=== PATIENT | male | born 1935 | race Caucasian/White ===

== ENCOUNTER 2022-07-30 23:07 | Inpatient (IN) ==
[2022-07-31] MEDS ORDERED: ONDANSETRON INJ 2 MG/ML 2 ML VIAL IV STA (01:19)
[2022-07-31] MEDS ORDERED: HYDROmorphone INJ 0.5 MG/0.5 ML SYR IV STA (01:19)
[2022-07-31 01:44] LABS: Basophils # (auto) 0.04 K/uL (0-0.2); Basophils % (auto) 0.3 %; Eosinophils # (auto) 0.03 K/uL (0-0.50); Eosinophils % (auto) 0.2 %; Hematocrit (blood only) 32.8 % (40.1-51.0); Hemoglobin 11.2 g/dl (14.0-18.0); Immature Granulocytes # (auto) 0.07 K/uL (0.00-0.02); Immature Granulocytes % (auto) 0.5 %; Lymphocytes # (auto) 1.64 K/uL (1.2-3.4); Lymphocytes % (auto) 11.6 %; Mean Corpuscular Hemoglobin 31.4 pg (25.0-34.0); Mean Corpuscular Hgb Conc 34.1 g/dL (32.0-36.0); Mean Corpuscular Volume 91.9 fL (80.0-100.0); Mean Platelet Volume 9.4 fL (9.4-12.4); Monocytes # (auto) 1.02 K/uL (0.24-0.82); Monocytes % (auto) 7.2 %; Neutrophils # (auto) 11.32 K/uL (1.4-6.5); Neutrophils % (auto) 80.2 %; Platelet Count 212 K/uL (130-400); RDW Coefficient of Variation 11.9 % (11.5-14.5); RDW Standard Deviation 40.3 fL (36.4-46.3); Red Blood Count 3.57 M/uL (4.63-6.08); White Blood Count 14.12 K/ul (4.8-10.8)
[2022-07-31 01:57] LABS: INR 1.1 (0.9-1.1); Partial Thromboplastin Ratio 0.9; Partial Thromboplastin Time 24.8 Seconds (21.0-31.0); Prothrombin Time 11.4 Seconds (9.0-12.0)
[2022-07-31 02:05] LABS: Albumin Globulin Ratio 1.4 (0.9-2); Albumin Level 3.9 gm/dl (3.4-5.0); BUN Creatinine Ratio 20.5 (10-20); Bilirubin,Total 0.4 mg/dl (0.2-1.0); Calcium 9.2 mg/dl (8.5-10.1); Creatinine Clr Calc Pharmacy 52.6 ml/min; Est GFR (African American) 69.1 ml/min; Est GFR (Non-African American) 59.6 ml/min; Globulin 2.7 gm/dl (2.5-4.0); Potassium 4.4 mmol/L (3.5-5.1); Total Protein 6.6 gm/dl (6.0-8.3)
[2022-07-31 03:11] LABS: Appearance Urine Clear (Clear); Bacteria Urine Automated Negative (Negative); Bilirubin Urine Negative (Negative); Blood Urine Negative (Negative); Color Urine Yellow; Epithelial Cell Urine Auto 20-30 /lpf (0-5); Glucose Urine UA Negative (Negative); Ketones Urine Trace (Negative); Leukocyte Esterase Urine Negative (Negative); Nitrite Urine Negative (Negative); Protein Urine 2+ (Negative); RBC Urine Automated 0-4 /hpf (0-4); Specific Gravity Urine 1.022 (1.000-1.030); Urobilinogen Urine Negative (Negative); pH Urine 6.5 (4.5-7.5)
--- NOTE | 2022-07-31 06:36 | Emergency Department Note ---
Impression & Plan Intertrochanteric fracture of right hip, Fall Admit to the [facility] ED Provider Note NAME: JORDANA DICKSON AGE: 87 SEX: M ARRIVES VIA: Ambulance INFORMANT: Patient and his family member ED PROVIDER(S): Rosio Baron DO CHIEF COMPLAINT: Right hip pain PLAN: Disposition: Admit to the [facility] Condition: Fair MEDICAL DECISION MAKING: This is an 87-year-old male patient who fell down 1 step landing on his right side. X-ray shows evidence of an intertrochanteric hip fracture. The patient did not injure any other part of his body during this fall. [facility] and [facility] will evaluate for further management. Patient's pain was managed with IV analgesia. Triage Nursing notes reviewed and agree with them. Additional history obtained from the patient's family members who are at the bedside Vital Signs: reviewed and unremarkable Differential diagnosis: Pelvis fracture, hip fracture, head injury ER treatment provided: IV Dilaudid IV Zofran Diagnostics interpreted by me: Cardiac Monitoring: Normal sinus rhythm at 77 Laboratory studies: See below Imaging studies: As per my interpretation Right hip and pelvis: Intertrochanteric hip fracture HPI: 87/M arrives for evaluation of right hip pain. Patient was helping his daughter carry a table to the basement when he missed the last step and fell to the ground landing on his right hip and shoulder. He immediately had pain in the right hip. He was unable to get up or bear weight on that leg and there is obvious shortening and external rotation of that extremity. ROS: See above HPI for pertinent positives & negatives. A total of 10 systems reviewed and were otherwise negative. PAST MEDICAL HISTORY:Patient suffers from blindness, diabetes, hypertension PAST SURGICAL HISTORY:See Below FAMILY HISTORY:See Below SOCIAL HISTORY:He lives with his family HOME MEDICATIONS:See list ALLERGIES:None VITALS:See Below PHYSICAL EXAMINATION: HEENT: Head - normocephalic and atraumatic. Pupils are equal, round, and reactive to light. Extraocular eye muscles are intact, and sclera are anicteric. Nose - moist nasal mucosa without discharge. Mouth - moist buccal mucosa. Oropharynx is nonerythematous and there is no tonsillar exudate or edema noted. Neck: Supple; no pain to palpation over the posterior cervical spine Heart: Regular rate and rhythm. There is a normal S1 and S2 with no murmurs, clicks, or gallops appreciated. Lungs: Clear to auscultation bilaterally with no wheezes, rales, or rhonchi. Abdomen: Soft, completely nontender, nondistended, with good bowel sounds. There are no palpable pulsatile masses or hepatosplenomegaly. There is no guarding, rigidity, or rebound noted. Extremities: The right lower extremity is shortened and externally rotated. There are easily palpable posterior tibial pulses and dorsalis pedis pulses. Patient has good sensation in the foot. Skin: warm and dry with good turgor and no rashes. ED COURSE: Times/Reassessments: 0110: Patient was evaluated in room C3. A complete history and physical was performed. Laboratory studies were drawn as above. The patient had plain films of the right hip and pelvis. He was given IV Dilaudid and IV Zofran for his pain with good relief of the pain. An order was placed for continuous cardiac monitoring. The patient was in a normal sinus rhythm at a rate of 77. [facility] and they will evaluate for further management. Rosio Baron DO Past Med/Surg History Medical History (Updated 07/31/22 @ 19:06 by Rosio Baron DO) Diabetes H/O breast disorder in male History of prostate cancer HTN (hypertension) Hyperlipidemia Surgical History (Updated 07/31/22 @ 10:49 by Landon Reyez MD) History of penile implant History of total left hip replacement Hx of appendectomy Social History Smoking Status: Never smoker Hx Alcohol Use: Yes Hx Substance Use: No Preferred Language: Cuban Communication Ability: Effective Cub Reporter Required: No Beliefs That Will Affect Care: None Current Living Situation: Spouse Other Information That Helps Us Care for You: No Feels Safe at Home: Yes Safety Concerns: Feels Safe At This Time Assistive Devices: Cane Allergies Allergies Allergy/AdvReac Type Severity Reaction Status Date / Time No Known Allergies Allergy Verified 07/31/22 00:36 Home Meds Home Medications Medication Instructions Recorded Confirmed ascorbic acid (vitamin C) 500 mg 500 mg PO DAILY 07/31/22 07/31/22 tablet (Vitamin C) atorvastatin 40 mg tablet 40 mg PO HS 07/31/22 07/31/22 calcium carbonate 600 mg calcium 600 mg PO DAILY 07/31/22 07/31/22 (1,500 mg) tablet (Calcium) captopril 50 mg tablet 50 mg PO BID 07/31/22 07/31/22 cholecalciferol (vitamin D3) 25 25 mcg PO DAILY 07/31/22 07/31/22 mcg (1,000 unit) capsule (Vitamin D3) hydrochlorothiazide 25 mg tablet 25 mg PO DAILY 07/31/22 07/31/22 latanoprost 0.005 % eye drops 1 drp ophthalmic (eye) HS 07/31/22 07/31/22 linagliptin 5 mg tablet (Tradjenta) 5 mg PO DAILY 07/31/22 07/31/22 metformin 1,000 mg tablet 1,000 mg PO BID 07/31/22 07/31/22 netarsudil 0.02 % eye drops 1 drp ophthalmic (eye) DAILY 07/31/22 07/31/22 (Rhopressa) vitamin B complex 1 tab PO DAILY 07/31/22 07/31/22 vitamin E 268 mg (400 unit) capsule 268 mg PO DAILY 07/31/22 07/31/22 Results & Data (ED) Vital Signs Vital Signs - 24 hr 07/30/22 23:13 07/31/22 01:37 07/31/22 03:16 Temperature 36.5 C Temperature Source Oral Pulse Rate 80 Pulse Rate [Apical] 90 86 Respiratory Rate 16 18 18 Blood Pressure 154/70 H Blood Pressure [Right Arm] 134/63 145/65 H Blood Pressure Mean 98 Blood Pressure Mean [Right Arm] 86 91 Pulse Oximetry 96 95 92 Oxygen Delivery Method Room Air Room Air Sepsis Recent Fever Within 48 Hours No Sepsis New/Unexplained Change in Mental Status N/A Sepsis Action Taken by Nursing No Action Required Laboratory Data Result diagrams: 07/31/22 08:37 07/31/22 08:37 Lab Results 07/31/22 07/31/22 07/31/22 Range/Units 01:33 01:33 01:33 WBC 14.12 H (4.8-10.8) K/ul RBC 3.57 L (4.63-6.08) M/uL Hgb 11.2 L (14.0-18.0) g/dl Hct 32.8 L (40.1-51.0) % MCV 91.9 (80.0-100.0) fL MCH 31.4 (25.0-34.0) pg MCHC 34.1 (32.0-36.0) g/dL RDW Std Deviation 40.3 (36.4-46.3) fL RDW Coeff of Shirley 11.9 (11.5-14.5) % Plt Count 212 (130-400) K/uL MPV 9.4 (9.4-12.4) fL Immature Gran % (Auto) 0.5 % Neut % (Auto) 80.2 % Lymph % (Auto) 11.6 % [place] % (Auto) 7.2 % Eos % (Auto) 0.2 % Baso % (Auto) 0.3 % Neut # (Auto) 11.32 H (1.4-6.5) K/uL Lymph # (Auto) 1.64 (1.2-3.4) K/uL [place] # (Auto) 1.02 H (0.24-0.82) K/uL Eos # (Auto) 0.03 (0-0.50) K/uL Baso # (Auto) 0.04 (0-0.2) K/uL Immature Gran # (Auto) 0.07 H (0.00-0.02) K/uL PT 11.4 (9.0-12.0) Seconds INR 1.1 (0.9-1.1) APTT 24.8 (21.0-31.0) Seconds PTT Ratio 0.9 Sodium 135 L (136-145) mmol/L Potassium 4.4 (3.5-5.1) mmol/L Chloride 98 (98-107) mmol/L Carbon Dioxide 31 (21-32) mmol/L Anion Gap 6 (3-11) BUN 23 (6-23) mg/dl Creatinine 1.12 (0.6-1.4) mg/dl Est Cr Clr Drug Dosing 52.6 ml/min Est GFR ( Amer) 69.1 ml/min Est GFR (Non-Af Amer) 59.6 ml/min BUN/Creatinine Ratio 20.5 H (10-20) Glucose 180 H (70-99(Fasting)) mg/dl Calcium 9.2 (8.5-10.1) mg/dl Total Bilirubin 0.4 (0.2-1.0) mg/dl AST 18 (13-39) U/L ALT 11 (7-52) U/L Alkaline Phosphatase 79 (34-104) U/L Total Protein 6.6 (6.0-8.3) gm/dl Albumin 3.9 (3.4-5.0) gm/dl Globulin 2.7 (2.5-4.0) gm/dl Albumin/Globulin Ratio 1.4 (0.9-2) Urine Color Urine Appearance (Clear) Urine pH (4.5-7.5) Ur Specific [place] (1.000-1.030) Urine Protein (Negative) Urine Glucose (UA) (Negative) Urine Ketones (Negative) Urine Blood (Negative) Urine Nitrite (Negative) Urine Bilirubin (Negative) Urine Urobilinogen (Negative) Ur Leukocyte Esterase (Negative) Urine WBC (Auto) (0-5) /hpf Urine RBC (Auto) (0-4) /hpf U Hyaline Cast (Auto) (0-5) /lpf U Epithel Cells (Auto) (0-5) /lpf Urine Bacteria (Auto) (Negative) SARS-CoV-2, RNA, NAAT (NEGATIVE) 07/31/22 07/31/22 Range/Units 02:53 03:47 WBC (4.8-10.8) K/ul RBC (4.63-6.08) M/uL Hgb (14.0-18.0) g/dl Hct (40.1-51.0) % MCV (80.0-100.0) fL MCH (25.0-34.0) pg MCHC (32.0-36.0) g/dL RDW Std Deviation (36.4-46.3) fL RDW Coeff of Shirley (11.5-14.5) % Plt Count (130-400) K/uL MPV (9.4-12.4) fL Immature Gran % (Auto) % Neut % (Auto) % Lymph % (Auto) % [place] % (Auto) % Eos % (Auto) % Baso % (Auto) % Neut # (Auto) (1.4-6.5) K/uL Lymph # (Auto) (1.2-3.4) K/uL [place] # (Auto) (0.24-0.82) K/uL Eos # (Auto) (0-0.50) K/uL Baso # (Auto) (0-0.2) K/uL Immature Gran # (Auto) (0.00-0.02) K/uL PT (9.0-12.0) Seconds INR (0.9-1.1) APTT (21.0-31.0) Seconds PTT Ratio Sodium (136-145) mmol/L Potassium (3.5-5.1) mmol/L Chloride (98-107) mmol/L Carbon Dioxide (21-32) mmol/L Anion Gap (3-11) BUN (6-23) mg/dl Creatinine (0.6-1.4) mg/dl Est Cr Clr Drug Dosing ml/min Est GFR ( Amer) ml/min Est GFR (Non-Af Amer) ml/min BUN/Creatinine Ratio (10-20) Glucose (70-99(Fasting)) mg/dl Calcium (8.5-10.1) mg/dl Total Bilirubin (0.2-1.0) mg/dl AST (13-39) U/L ALT (7-52) U/L Alkaline Phosphatase (34-104) U/L Total Protein (6.0-8.3) gm/dl Albumin (3.4-5.0) gm/dl Globulin (2.5-4.0) gm/dl Albumin/Globulin Ratio (0.9-2) Urine Color Yellow Urine Appearance Clear (Clear) Urine pH 6.5 (4.5-7.5) Ur Specific [place] 1.022 (1.000-1.030) Urine Protein 2+ H (Negative) Urine Glucose (UA) Negative (Negative) Urine Ketones Trace H (Negative) Urine Blood Negative (Negative) Urine Nitrite Negative (Negative) Urine Bilirubin Negative (Negative) Urine Urobilinogen Negative (Negative) Ur Leukocyte Esterase Negative (Negative) Urine WBC (Auto) 1-5 (0-5) /hpf Urine RBC (Auto) 0-4 (0-4) /hpf U Hyaline Cast (Auto) 5-10 H (0-5) /lpf U Epithel Cells (Auto) 20-30 H (0-5) /lpf Urine Bacteria (Auto) Negative (Negative) SARS-CoV-2, RNA, NAAT NEGATIVE (NEGATIVE) Administered Medications Ascorbic Acid (Ascorbic Acid 500 Mg Tab) 500 mg PO DAILY DELIA Stop: 08/30/22 08:59 Last Admin: 07/31/22 09:44 Dose: 500 mg Documented By: ANDREWS Calcium Carbonate (Calcium Carbonate 1250mg Tab) 1,250 mg PO DAILY DELIA Stop: 08/30/22 08:59 Last Admin: 07/31/22 09:44 Dose: 1,250 mg Documented By: ANDREWS Captopril (Captopril 25 Mg Tab) 50 mg PO BID DELIA Stop: 08/30/22 08:59 Last Admin: 07/31/22 09:45 Dose: 50 mg Documented By: ANDREWS Hydrochlorothiazide (Hydrochlorothiazide 25 Mg Tab) 25 mg PO DAILY DELIA Stop: 08/30/22 08:59 Last Admin: 07/31/22 09:45 Dose: 25 mg Documented By: ANDREWS Hydromorphone HCl (Hydromorphone Inj 0.5 Mg/0.5 Ml Syr) 0.5 mg IV Q3H PRN PRN Reason: Pain Stop: 08/14/22 08:05 Last Admin: 07/31/22 09:54 Dose: 0.5 mg Documented By: ANDREWS Sodium Chloride (Nss 1000ml) 1,000 mls @ 75 mls/hr IV .[id number] DELIA Stop: 08/30/22 08:05 Last Admin: 07/31/22 17:05 Dose: 75 mls/hr Documented By: Infusion: 07/31/22 12:25 Dose: 0 mls/hr Documented By: Admin: 07/31/22 09:40 Dose: 125 mls/hr Documented By: ANDREWS Insulin Aspart (Insulin Aspart Per Unit) 0 units SC ACHS DELIA Stop: 08/30/22 08:05 Last Admin: 07/31/22 17:47 Dose: 5 units Documented By: GIOVANNY Co-signed By: MISBAH Admin: 07/31/22 12:31 Dose: Not Given Documented By: ANDREWS Co-signed By: BRITTON Admin: 07/31/22 09:50 Dose: 1 units Documented By: ANDREWS Co-signed By: BRITTON Miscellaneous (Netarsudil-Order Awaiting Action) 1 each N/A QS DELIA Stop: 08/30/22 15:59 Last Admin: 07/31/22 17:05 Dose: Not Given Documented By: GIOVANNY Vitamin B Complex (Vitamin B Complex Tab) 1 tab PO DAILY DELIA Stop: 08/30/22 08:59 Last Admin: 07/31/22 09:44 Dose: 1 tab Documented By: ANDREWS Vitamin D (Cholecalciferol 1,000 Units 25 Mcg Tab) 1,000 units PO DAILY DELIA Stop: 08/30/22 08:59 Last Admin: 07/31/22 09:45 Dose: 1,000 units Documented By: ANDREWS Discontinued Medications Bupivacaine HCl (Bupivacaine 0.5 % 5 Mg/1 Ml Mpf 30ml Vial) Confirm Administered Dose 30 ml .ROUTE .STK-MED ONE Stop: 07/31/22 13:34 Last Admin: 07/31/22 15:33 Dose: 5 ml Documented By: JORGE Hydromorphone HCl (Hydromorphone Inj 0.5 Mg/0.5 Ml Syr) 0.5 mg IV NOW STA Stop: 07/31/22 01:20 Last Admin: 07/31/22 01:31 Dose: 0.5 mg Documented By: KEVAN Cefazolin Sodium (Ancef 2000mg) 2,000 mg in 15 mls @ 3.75 mls/min IV PREOP ONE; Protocol Stop: 07/31/22 10:55 Last Admin: 07/31/22 13:51 Dose: 3.75 mls/min Documented By: MODESTO Insulin Aspart (Insulin Aspart Per Unit) 4 units SC NOW STA Stop: 07/31/22 15:54 Last Admin: 07/31/22 15:55 Dose: 4 units Documented By: SERGIO Co-signed By: TRACI Insulin Glargine (Lantus Per Unit Charge) 5 units SQ DAILY DELIA Stop: 08/30/22 08:59 Last Admin: 07/31/22 09:50 Dose: 5 units Documented By: ANDREWS Co-signed By: OL Lidocaine/Epinephrine (Lidocaine 1%/Epinephrine 1:100,000 50 Ml Vial) Confirm Ad ministered Dose 1 ml .ROUTE .STK-MED ONE Stop: 07/31/22 13:34 Last Admin: 07/31/22 15:34 Dose: 5 ml Documented By: JORGE Ondansetron HCl (Ondansetron Inj 2 Mg/Ml 2 Ml Vial) 4 mg IV NOW STA Stop: 07/31/22 01:20 Last Admin: 07/31/22 01:31 Dose: 4 mg Documented By: KEVAN Ondansetron HCl (Ondansetron Inj 2 Mg/Ml 2 Ml Vial) 4 mg IV Q6H DELIA Stop: 08/30/22 17:02 Last Admin: 07/31/22 17:44 Dose: Not Given Documented By: GIOVANNY Imaging Data Radiologist's Impression: Hip/Pelvis X-Ray 07/31/22 01:19 SINGLE VIEW PELVIS; 2 VIEWS RIGHT HIP CLINICAL HISTORY: Fall with right hip injury. FINDINGS: An AP view of the pelvis with AP and frog leg views of the right hip are obtained. No prior studies are available for comparison at the time of dictation. The skeletal structures are osteopenic. There is a comminuted intertrochanteric fracture of the right proximal femur with medial displacement of the lesser trochanter. Overlying soft tissue edema is noted. No additional acute fracture is seen involving the left hip or the bony pelvis. A left hip arthroplasty is in place. Mild arthritic change and joint space narrowing is noted in the right hip. Enthesophytes arise from the anterior superior iliac spines. Lumbosacral spondylosis is partially imaged. Numerous surgical clips project over the pelvis. Urological implants project over the perineum. There is no evidence of bowel obstruction. IMPRESSION: Intertrochanteric fracture of the right femur as above. Electronically signed by: Nolan Castellano M.D. 07/31/2022 8:15 AM Discharge Plan Visit Data Chief Complaint: Fall Stated Complaint: FALL/rt. HIP PAIN. + SHORT/ROTATION +KED APPLIED ED Provider: Rosio Baron Discharge Problem: Intertrochanteric fracture of right hip, Fall Patient Disposition: Admitted As Inpatient Discharge Instructions Interventions: ED Discharge Assessment Last Done: 07/31/22 06:56 : Intertrochanteric fracture of right hip Qualifiers: Encounter type: initial encounter Fracture type: closed Fracture alignment: nondisplaced Qualified Code(s): S72.144A - Nondisplaced intertrochanteric fracture of right femur, initial encounter for closed fracture
[2022-07-31] MEDS ORDERED: ACETAMINOPHEN 325 MG TAB PO PRN ×2 (08:06→13:55)
[2022-07-31] MEDS ORDERED: POLYETHYLENE (MIRALAX) 17 GM PACK PO PRN (08:06)
--- NOTE | 2022-07-31 08:16 | XRay Report ---
SINGLE VIEW PELVIS; 2 VIEWS RIGHT HIP CLINICAL HISTORY: Fall with right hip injury. FINDINGS: An AP view of the pelvis with AP and frog leg views of the right hip are obtained. No prior studies are available for comparison at the time of dictation. The skeletal structures are osteopeni c. There is a comminuted intertrochanteric fracture of the right proximal femur with medial displacem ent of the lesser trochanter. Overlying soft tissue edema is noted. No additional acute fracture is s een involving the left hip or the bony pelvis. A left hip arthroplasty is in place. Mild arthritic ch vivi and joint space narrowing is noted in the right hip. Enthesophytes arise from the anterior super ior iliac spines. Lumbosacral spondylosis is partially imaged. Numerous surgical clips project over t he pelvis. Urological implants project over the perineum. There is no evidence of bowel obstruction. IMPRESSION: Intertrochanteric fracture of the right femur as above. Electronically signed by: Nolan Castellano M.D. 07/31/2022 8:15 AM
--- NOTE | 2022-07-31 08:16 | History and Physical Report ---
DATE OF ADMISSION: 07/31/2022. CHIEF COMPLAINT: Status post fall, right hip fracture. HISTORY OF PRESENT ILLNESS: This is an 87-year-old male with past medical history significant for type 2 diabetes, hyperlipidemia, hypertension, history of severe nonproliferative diabetic retinopathy and legally blind, history of prostate cancer in his 30s, and history of breast cancer in his 40s, status post chemotherapy, currently lives in [facility] in a duplex apartment with his , ambulates with a cane. Today he was trying to move a table into the garage with help of his [id number], there is a stepdown to his garage, which he slipped and fell on his right side. He did not hit his head, no loss of consciousness and when trying to move he had severe pain in the right hip and he was brought in here and found to have right hip fracture. Currently, resting comfortably and hemodynamically stable. Since he is legally blind and he is not ambulating much. Denies any headache. Has some runny nose, dry throat. No cough, no fever, no difficulty swallowing. No chest pain, no shortness of breath, no nausea, no abdominal pain. Normal bowel and bladder movements. ALLERGIES: No known drug allergies. PAST MEDICAL HISTORY: As mentioned above. PAST SURGICAL HISTORY: Appendectomy, left total hip replacement. MEDICATIONS: The patient is on ascorbic acid 500 mg p.o. daily, atorvastatin 40 mg p.o. at bedtime, calcium 600 mg p.o. daily, captopril 50 mg p.o. b.i.d., vitamin D 25 mcg p.o. daily, hydrochlorothiazide 25 mg p.o. daily, latanoprost one drop in each eye, Trajenta 5 mg p.o. daily, metformin 1000 mg p.o. b.i.d., Rhopressa one drop ophthalmic eyes daily, vitamin B complex 1 tablet daily, vitamin E 268 mg p.o. daily. FAMILY HISTORY: Significant for no family history on file. SOCIAL HISTORY: , no smoking, currently living at [facility]. REVIEW OF SYSTEMS: As per HPI. Rest of review of systems is negative. PHYSICAL EXAMINATION: GENERAL: The patient is of moderate build, not in acute distress. VITAL SIGNS: Temperature 36.5, pulse 86, respiratory rate 18, blood pressure 145/65, oxygen 92% on room air. HEENT: Atraumatic. Legally blind. Oral mucosa moist. NECK: No JVD, no neck masses. CARDIOVASCULAR: S1 and S2 heard. Regular rate and rhythm. No murmur, no gallop. RESPIRATORY SYSTEM: Normal AP diameter. No accessory muscle use. No wheezing, no crackles. ABDOMEN: Soft, bowel sounds present, nontender, no distention. CENTRAL NERVOUS SYSTEM: Alert and oriented. Legally blind. Insight is okay. Obeys simple commands. EXTREMITIES: Right lower extremity is shortened. No edema, no erythema seen. LABORATORY DATA: WBC 14, hemoglobin 11.2, hematocrit 32.8, platelets 212. PT 11.4, INR 1.1, APTT 24.8. Sodium 135, potassium 4.4, chloride 98, bicarbonate 31, BUN 23, creatinine 1.1, serum glucose 180, calcium 9.2, total bilirubin 0.4, AST 18, ALT 11, alkaline phosphatase 79. Urinalysis, +2 protein. SARS-CoV-2 rapid test negative. ASSESSMENT AND PLAN: This is an 87-year-old male who presents with a mechanical fall and right hip fracture. 1. Mechanical fall, right hip fracture. No cardiac history. History of diabetes, hypertension. Labs are okay. I will get an preop EKG and preop chest x-ray, if they are okay. The patient should be at acceptable risk to proceed with the procedure. We will keep him n.p.o., IV fluids, IV antiemetics, IV pain medication p.r.n. Consult Orthopedics. 2. History of diabetes: Hold his home medications of metformin and Tradjenta. Placed on Lantus 5 mg daily and insulin sliding scale. Follow the blood sugars. 3. History of hypertension. Continue captopril and hydrochlorothiazide. We will monitor his blood pressure. 4. Hyperlipidemia, on statin. 5. History of prostate cancer, status post chemotherapy. 6. Deep venous thrombosis prophylaxis. Could not place SCDs because of hip fracture. Holding an anticoagulation because of planned procedure. Further anticoagulation as per Orthopedics. Level 1 full code. PT/OT prior to discharge. Social service to help with discharge planning. Job ID: [id number] [facility]
--- NOTE | 2022-07-31 08:40 | XRay Report ---
SINGLE VIEW CHEST CLINICAL HISTORY: Preoperative examination. Hip fracture. FINDINGS: An AP, portable, supine chest radiograph is obtained. No prior studies are available for co mparison at the time of dictation. The examination is degraded by portable technique and patient rota tion. The heart is mildly enlarged noting atherosclerotic calcification of the thoracic aorta. The p ulmonary vasculature is not congested. Apparent right apical opacities likely represent superimposed shadow. No large pleural effusion or pneumothorax is seen. The skeletal structures are osteopenic. Th e bony thorax is grossly intact. Arthritic change is noted in the shoulders. Surgical clips are seen in the right chest wall. IMPRESSION: 1. Cardiomegaly without radiographic evidence of congestive failure. 2. Apparent right apical opacities likely represent superimposed shadows. Correlate clinically for ev idence of a mild pneumonitis. ACT 112: Negative or not required by law. Electronically signed by: Nolan Castellano M.D. 07/31/2022 8:38 AM
[2022-07-31 08:49] LABS: Basophils # (auto) 0.02 K/uL (0-0.2); Basophils % (auto) 0.2 %; Eosinophils # (auto) 0.02 K/uL (0-0.50); Eosinophils % (auto) 0.2 %; Hematocrit (blood only) 32.5 % (40.1-51.0); Hemoglobin 10.9 g/dl (14.0-18.0); Immature Granulocytes # (auto) 0.03 K/uL (0.00-0.02); Immature Granulocytes % (auto) 0.3 %; Lymphocytes # (auto) 1.83 K/uL (1.2-3.4); Lymphocytes % (auto) 19.1 %; Mean Corpuscular Hemoglobin 31.1 pg (25.0-34.0); Mean Corpuscular Hgb Conc 33.5 g/dL (32.0-36.0); Mean Corpuscular Volume 92.6 fL (80.0-100.0); Mean Platelet Volume 9.4 fL (9.4-12.4); Monocytes % (auto) 12.5 %; Neutrophils # (auto) 6.49 K/uL (1.4-6.5); Neutrophils % (auto) 67.7 %; Platelet Count 195 K/uL (130-400); RDW Coefficient of Variation 12.2 % (11.5-14.5); RDW Standard Deviation 41.7 fL (36.4-46.3); Red Blood Count 3.51 M/uL (4.63-6.08); White Blood Count 9.59 K/ul (4.8-10.8)
[2022-07-31 08:53] LABS: Estimated Average Glucose 151 mg/dl; Hemoglobin A1C 6.9 % (4.5-5.6)
[2022-07-31] MEDS ORDERED: LANTUS PER UNIT CHARGE SQ SCH (09:00)
[2022-07-31 09:16] LABS: BUN Creatinine Ratio 24.8 (10-20); Est GFR (African American) 71.4 ml/min; Est GFR (Non-African American) 61.6 ml/min; Magnesium 1.6 mg/dl (1.7-2.4); Potassium 4.1 mmol/L (3.5-5.1)
[2022-07-31] MEDS: SODIUM CHLORIDE 0.9% 1000ML 1,000 ML IV SCH ×2 (09:40→17:05)
[2022-07-31] MEDS: ASCORBIC ACID 500 MG TAB PO SCH (09:44)
[2022-07-31] MEDS: CALCIUM CARBONATE 1250MG TAB PO SCH (09:44)
[2022-07-31] MEDS: VITAMIN B COMPLEX TAB PO SCH (09:44)
[2022-07-31] MEDS: hydroCHLOROthiazide 25 MG TAB PO SCH (09:45)
[2022-07-31] MEDS: CHOLECALCIFEROL 1,000 UNITS 25 MCG TAB PO SCH (09:45)
[2022-07-31] MEDS: INSULIN ASPART PER UNIT SC SCH ×4 (09:50→21:43)
[2022-07-31] MEDS: HYDROmorphone INJ 0.5 MG/0.5 ML SYR IV PRN (09:54)
[2022-07-31] MEDS ORDERED: ceFAZolin 2000MG 2,000 MG/15 ML SYR IV ONE ×2 (10:52→22:00)
--- NOTE | 2022-07-31 10:53 | Orthopedic Consultation ---
Date of Consultation July 31, 2022 Assessment & Plan (1) Fracture of hip, right, closed: The patient is a 87 year old male who sustained a right hip fracture. Their treatment options of conservative versus surgical intervention were discussed. Since the patient was an ambulatory prior to their injury and to avoid the risks of bed sores, pulmonary complications, and to give them the best chance for ambulation, I recommended surgery. The patient and their family understands the risks of surgery, which include but are not limited to: bleeding, infection, re- operation, damage to nerves and arteries, continued pain, failure of the hardware, mal-union, non-union, DVT, and . Due to their medical problems the patient and their family understand that the patient is a high risk candidate for surgery. In addition the patient is aware of the 20-30% morbidity associated with hip fracture for up to 1 year following a hip fracture. The patient understands all of these instructions and explanations, all of their questions have been satisfactorily addressed. The patient has elected to proceed with surgery and the informed consent was signed for open reduction internal fixation right hip. Hospitalist service has deemed an acceptable risk for surgery. NPO. NWB RLE TEDs and SCD LLE. Antibiotics on-call to OR. Placed on add-on list for later today. Present on Admission?: Yes History of Present Illness Reason for Consultation: Right hip fracture Requesting Physician: Dr. Aissatou Avitia covering Attending Physician: Braulio Sawyer MD History of Present Illness 87 yo male with multiple medical problems, legally blind, typically ambulates with a cane. He fell moving a table injuring his right hip. He was brought to the ED were x-rays were obtained and I was consulted for further evaluation and treatment. He is NPO and deemed acceptable risk for surgery by primary service. Allergies Allergy/AdvReac Type Severity Reaction Status Date / Time No Known Allergies Allergy Verified 07/31/22 00:36 Home Medications Medication Instructions Recorded Confirmed Type ascorbic acid (vitamin C) 500 mg 500 mg PO DAILY 07/31/22 07/31/22 History tablet (Vitamin C) atorvastatin 40 mg tablet 40 mg PO HS 07/31/22 07/31/22 History calcium carbonate 600 mg calcium 600 mg PO DAILY 07/31/22 07/31/22 History (1,500 mg) tablet (Calcium) captopril 50 mg tablet 50 mg PO BID 07/31/22 07/31/22 History cholecalciferol (vitamin D3) 25 25 mcg PO DAILY 07/31/22 07/31/22 History mcg (1,000 unit) capsule (Vitamin D3) hydrochlorothiazide 25 mg tablet 25 mg PO DAILY 07/31/22 07/31/22 History latanoprost 0.005 % eye drops 1 drp ophthalmic (eye) HS 07/31/22 07/31/22 History linagliptin 5 mg tablet (Tradjenta) 5 mg PO DAILY 07/31/22 07/31/22 History metformin 1,000 mg tablet 1,000 mg PO BID 07/31/22 07/31/22 History netarsudil 0.02 % eye drops 1 drp ophthalmic (eye) DAILY 07/31/22 07/31/22 History (Rhopressa) vitamin B complex 1 tab PO DAILY 07/31/22 07/31/22 History vitamin E 268 mg (400 unit) capsule 268 mg PO DAILY 07/31/22 07/31/22 History Patient History Medical History (Updated 07/31/22 @ 10:50 by Landon Reyez MD) H/O breast disorder in male History of prostate cancer HTN (hypertension) Hyperlipidemia Surgical History (Updated 07/31/22 @ 10:49 by Landon Reyez MD) History of penile implant History of total left hip replacement Hx of appendectomy Social History Smoking Status: Never smoker Hx Alcohol Use: Yes Hx Substance Use: No Preferred Language: Filipino Communication Ability: Effective Backroom Associate Required: No Beliefs That Will Affect Care: None Current Living Situation: Spouse Other Information That Helps Us Care for You: No Feels Safe at Home: Yes Safety Concerns: Feels Safe At This Time Assistive Devices: Cane Review of Systems Review of Systems: All systems reviewed & are unremarkable except as noted in HPI & below Physical Exam Physical Exam: RLE: Shortened. 1+ DP pulse, sensation to light touch intact distally. Wiggling toes. Calf soft and non-tender. + tenderness to palpation groin. Results & Data ([facility]) Vital Signs (Past 12 Hours) Vital Signs Temp Pulse Pulse Resp BP BP Pulse Ox 07/31/22 08:38 36.5 C 76 18 146/68 H 93 07/31/22 06:56 76 16 125/90 92 07/31/22 05:00 85 16 126/56 L 92 07/31/22 03:16 86 18 145/65 H 92 07/31/22 01:37 90 18 134/63 95 07/30/22 23:13 36.5 C 80 16 154/70 H 96 O2 Del Method 07/31/22 08:38 Room Air 07/31/22 06:56 Room Air 07/31/22 05:00 Room Air 07/31/22 03:16 07/31/22 01:37 Room Air 07/30/22 23:13 Room Air Laboratory Results Laboratory Results WBC 9.59 K/ul (4.8-10.8) 07/31/22 08:37 RBC 3.51 M/uL (4.63-6.08) L 07/31/22 08:37 Hgb 10.9 g/dl (14.0-18.0) L 07/31/22 08:37 Hct 32.5 % (40.1-51.0) L 07/31/22 08:37 MCV 92.6 fL (80.0-100.0) 07/31/22 08:37 MCH 31.1 pg (25.0-34.0) 07/31/22 08:37 MCHC 33.5 g/dL (32.0-36.0) 07/31/22 08:37 RDW Std Deviation 41.7 fL (36.4-46.3) 07/31/22 08:37 RDW Coeff of [place] 12.2 % (11.5-14.5) 07/31/22 08:37 Plt Count 195 K/uL (130-400) 07/31/22 08:37 MPV 9.4 fL (9.4-12.4) 07/31/22 08:37 Immature Gran % (Auto) 0.3 % 07/31/22 08:37 Neut % (Auto) 67.7 % 07/31/22 08:37 Lymph % (Auto) 19.1 % 07/31/22 08:37 [place] % (Auto) 12.5 % 07/31/22 08:37 Eos % (Auto) 0.2 % 07/31/22 08:37 Baso % (Auto) 0.2 % 07/31/22 08:37 Neut # (Auto) 6.49 K/uL (1.4-6.5) 07/31/22 08:37 Lymph # (Auto) 1.83 K/uL (1.2-3.4) 07/31/22 08:37 [place] # (Auto) 1.20 K/uL (0.24-0.82) H 07/31/22 08:37 Eos # (Auto) 0.02 K/uL (0-0.50) 07/31/22 08:37 Baso # (Auto) 0.02 K/uL (0-0.2) 07/31/22 08:37 Immature Gran # (Auto) 0.03 K/uL (0.00-0.02) H 07/31/22 08:37 PT 11.4 Seconds (9.0-12.0) 07/31/22 01:33 INR 1.1 (0.9-1.1) 07/31/22 01:33 APTT 24.8 Seconds (21.0-31.0) 07/31/22 01:33 PTT Ratio 0.9 07/31/22 01:33 Sodium 138 mmol/L (136-145) 07/31/22 08:37 Potassium 4.1 mmol/L (3.5-5.1) 07/31/22 08:37 Chloride 101 mmol/L (98-107) 07/31/22 08:37 Carbon Dioxide 33 mmol/L (21-32) H 07/31/22 08:37 Anion Gap 4 (3-11) 07/31/22 08:37 BUN 27 mg/dl (6-23) H 07/31/22 08:37 Creatinine 1.09 mg/dl (0.6-1.4) 07/31/22 08:37 Est Cr Clr Drug Dosing 54.0 ml/min 07/31/22 08:37 Est GFR ( Amer) 71.4 ml/min 07/31/22 08:37 Est GFR (Non-Af Amer) 61.6 ml/min 07/31/22 08:37 BUN/Creatinine Ratio 24.8 (10-20) H 07/31/22 08:37 Glucose 185 mg/dl (70-99(Fasting)) H 07/31/22 08:37 POC Glucose 165 mg/dl (70-99) H 07/31/22 09:44 Estimat Average Glucose 151 mg/dl 07/31/22 08:37 Hemoglobin A1c 6.9 % (4.5-5.6) H 07/31/22 08:37 Calcium 9.0 mg/dl (8.5-10.1) 07/31/22 08:37 Magnesium 1.6 mg/dl (1.7-2.4) L 07/31/22 08:37 Total Bilirubin 0.4 mg/dl (0.2-1.0) 07/31/22 01:33 AST 18 U/L (13-39) 07/31/22 01:33 ALT 11 U/L (7-52) 07/31/22 01:33 Alkaline Phosphatase 79 U/L (34-104) 07/31/22 01:33 Total Protein 6.6 gm/dl (6.0-8.3) 07/31/22 01:33 Albumin 3.9 gm/dl (3.4-5.0) 07/31/22 01:33 Globulin 2.7 gm/dl (2.5-4.0) 07/31/22 01:33 Albumin/Globulin Ratio 1.4 (0.9-2) 07/31/22 01:33 Urine Color Yellow 07/31/22 02:53 Urine Appearance Clear (Clear) 07/31/22 02:53 Urine pH 6.5 (4.5-7.5) 07/31/22 02:53 Ur Specific [place] 1.022 (1.000-1.030) 07/31/22 02:53 Urine Protein 2+ (Negative) H 07/31/22 02:53 Urine Glucose (UA) Negative (Negative) 07/31/22 02:53 Urine Ketones Trace (Negative) H 07/31/22 02:53 Urine Blood Negative (Negative) 07/31/22 02:53 Urine Nitrite Negative (Negative) 07/31/22 02:53 Urine Bilirubin Negative (Negative) 07/31/22 02:53 Urine Urobilinogen Negative (Negative) 07/31/22 02:53 Ur Leukocyte Esterase Negative (Negative) 07/31/22 02:53 Urine WBC (Auto) 1-5 /hpf (0-5) 07/31/22 02:53 Urine RBC (Auto) 0-4 /hpf (0-4) 07/31/22 02:53 U Hyaline Cast (Auto) 5-10 /lpf (0-5) H 07/31/22 02:53 U Epithel Cells (Auto) 20-30 /lpf (0-5) H 07/31/22 02:53 Urine Bacteria (Auto) Negative (Negative) 07/31/22 02:53 SARS-CoV-2, RNA, NAAT NEGATIVE (NEGATIVE) 07/31/22 03:47 Impressions Hip/Pelvis X-Ray 07/31/22 01:19 SINGLE VIEW PELVIS; 2 VIEWS RIGHT HIP CLINICAL HISTORY: Fall with right hip injury. FINDINGS: An AP view of the pelvis with AP and frog leg views of the right hip are obtained. No prior studies are available for comparison at the time of dictation. The skeletal structures are osteopenic. There is a comminuted intertrochanteric fracture of the right proximal femur with medial displacement of the lesser trochanter. Overlying soft tissue edema is noted. No additional acute fracture is seen involving the left hip or the bony pelvis. A left hip arthroplasty is in place. Mild arthritic change and joint space narrowing is noted in the right hip. Enthesophytes arise from the anterior superior iliac spines. Lumbosacral spondylosis is partially imaged. Numerous surgical clips project over the pelvis. Urological implants project over the perineum. There is no evidence of bowel obstruction. IMPRESSION: Intertrochanteric fracture of the right femur as above. Electronically signed by: Nolan Castellano M.D. 07/31/2022 8:15 AM Chest X-Ray 07/31/22 08:06 SINGLE VIEW CHEST CLINICAL HISTORY: Preoperative examination. Hip fracture. FINDINGS: An AP, portable, supine chest radiograph is obtained. No prior studies are available for comparison at the time of dictation. The examination is degraded by portable technique and patient rotation. The heart is mildly enlarged noting atherosclerotic calcification of the thoracic aorta. The pulmonary vasculature is not congested. Apparent right apical opacities likely represent superimposed shadow. No large pleural effusion or pneumothorax is seen. The skeletal structures are osteopenic. The bony thorax is grossly intact. Arthritic change is noted in the shoulders. Surgical clips are seen in the right chest wall. IMPRESSION: 1. Cardiomegaly without radiographic evidence of congestive failure. 2. Apparent right apical opacities likely represent superimposed shadows. Correlate clinically for evidence of a mild pneumonitis. ACT 112: Negative or not required by law. Electronically signed by: Nolan Castellano M.D. 07/31/2022 8:38 AM
[2022-07-31] MEDS ORDERED: ONDANSETRON INJ 2 MG/ML 2 ML VIAL IV PRN ×2 (12:30→17:40)
[2022-07-31] MEDS ORDERED: ePHEDrine sulfate 50 MG/ML AMP IV PRN (12:30)
[2022-07-31] MEDS ORDERED: ATROPINE SULFATE 0.1 MG/ML 10ML SYR IV PRN (12:30)
[2022-07-31] MEDS ORDERED: MoRPHine SULFATE 10 MG/ML CARP/VIAL IV PRN (12:30)
[2022-07-31] MEDS ORDERED: fentaNYL citrate 100 MCG/2 ML VIAL IV PRN (12:30)
--- NOTE | 2022-07-31 12:30 | Anesthesiology Consultation ---
Date of Service July 31, 2022 Assessment & Plan Chart Review Chart Review: Acceptable Risk for Surgery Consults Requested none ASA ASA3 Proposed Anesthesia Anesthesia Type: General Risk / Benefits Reviewed With: PT / POA / Parent / Guardian, Accepts Plan and Informed Consent Obtained History Surgery Operation Date: 07/31/22 09:40 Proposed Procedures p Right Troch Nail - Landon Nabila Reyez MD Height/Weight Height: 5 ft 8 in Weight: 90.1 kg Allergies Allergy/AdvReac Type Severity Reaction Status Date / Time No Known Allergies Allergy Verified 07/31/22 00:36 Medications Home Medications Medication Instructions Recorded Confirmed Last Taken ascorbic acid (vitamin C) 500 mg 500 mg PO DAILY 07/31/22 07/31/22 07/29/22 tablet (Vitamin C) atorvastatin 40 mg tablet 40 mg PO HS 07/31/22 07/31/22 07/29/22 calcium carbonate 600 mg calcium 600 mg PO DAILY 07/31/22 07/31/22 07/29/22 (1,500 mg) tablet (Calcium) captopril 50 mg tablet 50 mg PO BID 07/31/22 07/31/22 07/30/22 08:00 cholecalciferol (vitamin D3) 25 25 mcg PO DAILY 07/31/22 07/31/22 07/29/22 mcg (1,000 unit) capsule (Vitamin D3) hydrochlorothiazide 25 mg tablet 25 mg PO DAILY 07/31/22 07/31/22 07/30/22 latanoprost 0.005 % eye drops 1 drp ophthalmic (eye) HS 07/31/22 07/31/22 07/29/22 linagliptin 5 mg tablet (Tradjenta) 5 mg PO DAILY 07/31/22 07/31/22 07/30/22 metformin 1,000 mg tablet 1,000 mg PO BID 07/31/22 07/31/22 07/30/22 netarsudil 0.02 % eye drops 1 drp ophthalmic (eye) DAILY 07/31/22 07/31/22 07/30/22 (Rhopressa) vitamin B complex 1 tab PO DAILY 07/31/22 07/31/22 07/29/22 vitamin E 268 mg (400 unit) capsule 268 mg PO DAILY 07/31/22 07/31/22 07/29/22 Active Medications Generic Name Dose Route Start Last Admin Trade Name Freq PRN Reason Stop Dose Admin Ascorbic Acid 500 mg 07/31/22 09:00 07/31/22 09:44 Ascorbic Acid 500 Mg Tab PO 08/30/22 08:59 500 mg DAILY DELIA Administration Calcium Carbonate 1,250 mg 07/31/22 09:00 07/31/22 09:44 Calcium Carbonate 1250mg Tab PO 08/30/22 08:59 1,250 mg DAILY DELIA Administration Captopril 50 mg 07/31/22 09:00 07/31/22 09:45 Captopril 25 Mg Tab PO 08/30/22 08:59 50 mg BID DELIA Administration Hydrochlorothiazide 25 mg 07/31/22 09:00 07/31/22 09:45 Hydrochlorothiazide 25 Mg Tab PO 08/30/22 08:59 25 mg DAILY DELIA Administration Hydromorphone HCl 0.5 mg 07/31/22 08:06 07/31/22 09:54 Hydromorphone Inj 0.5 Mg/0.5 Ml Syr IV 08/14/22 08:05 0.5 mg Q3H PRN Administration Pain Sodium Chloride 1,000 mls @ 125 mls/hr 07/31/22 08:06 07/31/22 09:40 Nss 1000ml IV 08/30/22 08:05 125 mls/hr .Q8H DELIA Administration Insulin Aspart 0 units 07/31/22 08:06 07/31/22 12:31 Insulin Aspart Per Unit SC 08/30/22 08:05 Not Given ACHS DELIA Insulin Glargine 5 units 07/31/22 09:00 07/31/22 09:50 Lantus Per Unit Charge SQ 08/30/22 08:59 5 units DAILY DELIA Administration Vitamin B Complex 1 tab 07/31/22 09:00 07/31/22 09:44 Vitamin B Complex Tab PO 08/30/22 08:59 1 tab DAILY DELIA Administration Vitamin D 1,000 units 07/31/22 09:00 07/31/22 09:45 Cholecalciferol 1,000 Units 25 Mcg Tab PO 08/30/22 08:59 1,000 units DAILY DELIA Administration NPO Date Last Intake of Fluids: 07/30/22 Time Last Intake of Fluids: 22:00 Date Last Intake of Solids: 07/30/22 Time Last Intake of Solids: 22:00 Past Medical History Medical History (Updated 07/31/22 @ 12:48 by Layne Silverio DO) Diabetes H/O breast disorder in male History of prostate cancer HTN (hypertension) Hyperlipidemia Exercise / Class Metabolic Activity II 4-5 Yardwork/Stairs/Walk up hill Past Surgical History Surgical History (Updated 07/31/22 @ 10:49 by Landon Reyez MD) History of penile implant History of total left hip replacement Hx of appendectomy Past Anesthesia History No Hx of Anesthesia Complications and No Family Hx of Anesthesia Complications History of PONV No Hx of PONV and No Hx of Motion Sickness Social History Smoking Status: Never smoker Hx Alcohol Use: Yes alcohol intake frequency: a few times a month Hx Substance Use: No substance use type: does not use Physical Exam Vital Signs Last Vital Signs Temp 36.9 C 07/31/22 12:26 Pulse 76 07/31/22 12:26 Resp 20 07/31/22 12:26 BP 164/59 H 07/31/22 12:26 Pulse Ox 100 07/31/22 12:26 O2 Del Method 07/31/22 12:26 O2 Flow Rate 3 07/31/22 12:26 ENMT Mouth: + dentures (Upper partial. Missing upper right teeth) and + dental restorations; no TMJ abnormality Thyromental Distance: > or= 3.5 Finger Breadths Mallampati Class: III Neck normal visual inspection and trachea midline; neck extension not limited Respiratory normal respiratory effort Auscultation: lungs clear to auscultation bilaterally Cardiovascular Rate/Rhythm: regular rate and regular rhythm Heart Sounds: no murmur Musculoskeletal Spine: normal cervical ROM Extremities: + limited ROM of extremities Psychiatric Orientation: alert and oriented x 3 Testing Laboratory Results 07/31/22 08:37 07/31/22 08:37 PT 11.4 Seconds (9.0-12.0) 07/31/22 01:33 INR 1.1 (0.9-1.1) 07/31/22 01:33 APTT 24.8 Seconds (21.0-31.0) 07/31/22 01:33 Hemoglobin A1c 6.9 % (4.5-5.6) H 07/31/22 08:37 Urine Color Yellow 07/31/22 02:53 Urine Appearance Clear (Clear) 07/31/22 02:53 Urine pH 6.5 (4.5-7.5) 07/31/22 02:53 Ur Specific [place] 1.022 (1.000-1.030) 07/31/22 02:53 Urine Protein 2+ (Negative) H 07/31/22 02:53 Urine Glucose (UA) Negative (Negative) 07/31/22 02:53 Urine Ketones Trace (Negative) H 07/31/22 02:53 Urine Nitrite Negative (Negative) 07/31/22 02:53 Ur Leukocyte Esterase Negative (Negative) 07/31/22 02:53 Urine WBC (Auto) 1-5 /hpf (0-5) 07/31/22 02:53 Urine RBC (Auto) 0-4 /hpf (0-4) 07/31/22 02:53 U Hyaline Cast (Auto) 5-10 /lpf (0-5) H 07/31/22 02:53 U Epithel Cells (Auto) 20-30 /lpf (0-5) H 07/31/22 02:53 Urine Bacteria (Auto) Negative (Negative) 07/31/22 02:53 07/31/22 07/31/22 07/31/22 12:32 11:43 09:44 POC Glucose 197 H 187 H 165 H Electrocardiogram Date: 07/31/22 Findings: + NSR @ (75) low voltage Chest X-Ray Date: 07/31/22 SINGLE VIEW CHEST CLINICAL HISTORY: Preoperative examination. Hip fracture. FINDINGS: An AP, portable, supine chest radiograph is obtained. No prior studies are available for comparison at the time of dictation. The examination is degraded by portable technique and patient rotation. The heart is mildly enlarged noting atherosclerotic calcification of the thoracic aorta. The pulmonary vasculature is not congested. Apparent right apical opacities likely represent superimposed shadow. No large pleural effusion or pneumothorax is seen. The skeletal structures are osteopenic. The bony thorax is grossly intact. Arthritic change is noted in the shoulders. Surgical clips are seen in the right chest wall. IMPRESSION: 1. Cardiomegaly without radiographic evidence of congestive failure. 2. Apparent right apical opacities likely represent superimposed shadows. Correlate clinically for evidence of a mild pneumonitis.
[2022-07-31] MEDS ORDERED: SUGAMMADEX SODIUM 200 MG/2 ML VIAL IV ONE (12:47)
[2022-07-31] MEDS ORDERED: PROPOFOL IV EMULSION 10 MG/ML 20 ML VIAL IV ONE (12:49)
[2022-07-31] MEDS ORDERED: ROCURONIUM BROMIDE 10 MG/ML 5 ML VIAL IV ONE ×2 (12:49→16:00)
[2022-07-31] MEDS ORDERED: DEXAMETHASONE SOD INJ 4 MG/ML VIAL ONE (12:49)
[2022-07-31] MEDS ORDERED: fentaNYL citrate 100 MCG/2 ML VIAL ONE (12:49)
[2022-07-31] MEDS ORDERED: ONDANSETRON INJ 2 MG/ML 2 ML VIAL ONE (12:49)
[2022-07-31] MEDS ORDERED: LIDOCAINE 1%/EPINEPHRINE 1:100,000 50 ML VIAL ONE (13:33)
[2022-07-31] MEDS ORDERED: BUPIVACAINE 0.5 % 5 MG/1 ML MPF 30ML VIAL ONE (13:33)
[2022-07-31] MEDS ORDERED: HYDROmorphone INJ 0.5 MG/0.5 ML SYR IV PRN (13:55)
--- NOTE | 2022-07-31 13:56 | Hospitalist Progress Note ---
Date of Service July 31, 2022 Assessment & Plan (1) Fracture of hip, right, closed: (2) Fall: Plan: Presented from [facility] assisted living Had a mechanical fall and presented to the ED. Hip x-ray shows intertrochanteric fracture of right femur. Plan; -Patient to undergo right trochanteric nailing by orthopedic today. We will obtain PT OT postoperatively. He will likely need rehab placement. Start DVT prophylaxis after surgery as per othropedics Monitor for postop fever, chest pain, shortness of breath, ileus and UTI. Plan 2. 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 Placed on Lantus 5 mg daily and insulin sliding scale. Follow the blood sugars. A1c of 6.9%. 3. History of hypertension. Continue captopril and hydrochlorothiazide. We will monitor his blood pressure. 4. Hyperlipidemia, on statin. 5. History of prostate cancer, status post chemotherapy. 6. Deep venous thrombosis prophylaxis. Could not place SCDs because of hip fracture. Holding an anticoagulation because of planned procedure. Further anticoagulation as per Orthopedics. Level 1 full code. PT/OT prior to discharge. Social service to help with discharge planning. Admission and Anticipated Discharge Date Admission Date: July 31, 2022 Subjective Patient seen and examined at bedside. Is lying in the bed comfortably; not in any distress. Complains of pain in his right hip; no complaint of fever, chills, chest pain, shortness of breath or abdominal pain. Review of Systems Review of Systems: All systems reviewed & are unremarkable except as noted in Subjective Physical Exam Physical Exam: Constitutional: Lying down on the bed comfortably; not in distress. Appear stated age. Respiratory: normal respiratory effort, lungs clear to auscultation, no wheeze, rales, rhonchi. Normal insp/exp effort, no accessory muscle use Cardiovascular: RRR, no murmur, no edema Vessels: no JVD or carotid bruit Chest: normal inspection of chest Abdomen: normal bowel sounds, soft, nontender, no hepatosplenomegaly Musculoskeletal: Tenderness present on right hip; swelling present. ROM painful. Skin: no rashes, warm and dry normal turgor Neurologic: PERRL, EOMI, accommodation nl, no face palsy, no dysarthria CN's II- XI intact bilaterally and moves all extremities Psychiatric: A+Ox3, euthymic affect Lymphatic: no cervical or axillary lymphadenopathy : deferred Results & Data Results & Data ([facility]) Vital Signs (Past 12 Hours) Vital Signs Temp Pulse Pulse Resp BP BP Pulse Ox 07/31/22 12:26 36.9 C 76 20 164/59 H 100 07/31/22 12:24 70 18 127/48 L 97 07/31/22 10:41 70 18 153/67 H 99 07/31/22 10:40 07/31/22 08:38 36.5 C 76 18 146/68 H 93 07/31/22 06:56 76 16 125/90 92 07/31/22 05:00 85 16 126/56 L 92 07/31/22 03:16 86 18 145/65 H 92 O2 Del Method O2 Del Method O2 Flow Rate 07/31/22 12:26 Nasal Cannula 3 07/31/22 12:24 Nasal Cannula 3 07/31/22 10:41 Nasal Cannula 3 07/31/22 10:40 Room Air 07/31/22 08:38 Room Air 07/31/22 06:56 Room Air 07/31/22 05:00 Room Air 07/31/22 03:16 Laboratory Results Laboratory Results WBC 9.59 K/ul (4.8-10.8) 07/31/22 08:37 RBC 3.51 M/uL (4.63-6.08) L 07/31/22 08:37 Hgb 10.9 g/dl (14.0-18.0) L 07/31/22 08:37 Hct 32.5 % (40.1-51.0) L 07/31/22 08:37 MCV 92.6 fL (80.0-100.0) 07/31/22 08:37 MCH 31.1 pg (25.0-34.0) 07/31/22 08:37 MCHC 33.5 g/dL (32.0-36.0) 07/31/22 08:37 RDW Std Deviation 41.7 fL (36.4-46.3) 07/31/22 08:37 RDW Coeff of Shirley 12.2 % (11.5-14.5) 07/31/22 08:37 Plt Count 195 K/uL (130-400) 07/31/22 08:37 MPV 9.4 fL (9.4-12.4) 07/31/22 08:37 Immature Gran % (Auto) 0.3 % 07/31/22 08:37 Neut % (Auto) 67.7 % 07/31/22 08:37 Lymph % (Auto) 19.1 % 07/31/22 08:37 Mccreary % (Auto) 12.5 % 07/31/22 08:37 Eos % (Auto) 0.2 % 07/31/22 08:37 Baso % (Auto) 0.2 % 07/31/22 08:37 Neut # (Auto) 6.49 K/uL (1.4-6.5) 07/31/22 08:37 Lymph # (Auto) 1.83 K/uL (1.2-3.4) 07/31/22 08:37 Mccreary # (Auto) 1.20 K/uL (0.24-0.82) H 07/31/22 08:37 Eos # (Auto) 0.02 K/uL (0-0.50) 07/31/22 08:37 Baso # (Auto) 0.02 K/uL (0-0.2) 07/31/22 08:37 Immature Gran # (Auto) 0.03 K/uL (0.00-0.02) H 07/31/22 08:37 PT 11.4 Seconds (9.0-12.0) 07/31/22 01:33 INR 1.1 (0.9-1.1) 07/31/22 01:33 APTT 24.8 Seconds (21.0-31.0) 07/31/22 01:33 PTT Ratio 0.9 07/31/22 01:33 Sodium 138 mmol/L (136-145) 07/31/22 08:37 Potassium 4.1 mmol/L (3.5-5.1) 07/31/22 08:37 Chloride 101 mmol/L (98-107) 07/31/22 08:37 Carbon Dioxide 33 mmol/L (21-32) H 07/31/22 08:37 Anion Gap 4 (3-11) 07/31/22 08:37 BUN 27 mg/dl (6-23) H 07/31/22 08:37 Creatinine 1.09 mg/dl (0.6-1.4) 07/31/22 08:37 Est Cr Clr Drug Dosing 54.0 ml/min 07/31/22 08:37 Est GFR ( Amer) 71.4 ml/min 07/31/22 08:37 Est GFR (Non-Af Amer) 61.6 ml/min 07/31/22 08:37 BUN/Creatinine Ratio 24.8 (10-20) H 07/31/22 08:37 Glucose 185 mg/dl (70-99(Fasting)) H 07/31/22 08:37 POC Glucose 197 mg/dl (70-99) H 07/31/22 12:32 Estimat Average Glucose 151 mg/dl 07/31/22 08:37 Hemoglobin A1c 6.9 % (4.5-5.6) H 07/31/22 08:37 Calcium 9.0 mg/dl (8.5-10.1) 07/31/22 08:37 Magnesium 1.6 mg/dl (1.7-2.4) L 07/31/22 08:37 Total Bilirubin 0.4 mg/dl (0.2-1.0) 07/31/22 01:33 AST 18 U/L (13-39) 07/31/22 01:33 ALT 11 U/L (7-52) 07/31/22 01:33 Alkaline Phosphatase 79 U/L (34-104) 07/31/22 01:33 Total Protein 6.6 gm/dl (6.0-8.3) 07/31/22 01:33 Albumin 3.9 gm/dl (3.4-5.0) 07/31/22 01:33 Globulin 2.7 gm/dl (2.5-4.0) 07/31/22 01:33 Albumin/Globulin Ratio 1.4 (0.9-2) 07/31/22 01:33 Urine Color Yellow 07/31/22 02:53 Urine Appearance Clear (Clear) 07/31/22 02:53 Urine pH 6.5 (4.5-7.5) 07/31/22 02:53 Ur Specific [place] 1.022 (1.000-1.030) 07/31/22 02:53 Urine Protein 2+ (Negative) H 07/31/22 02:53 Urine Glucose (UA) Negative (Negative) 07/31/22 02:53 Urine Ketones Trace (Negative) H 07/31/22 02:53 Urine Blood Negative (Negative) 07/31/22 02:53 Urine Nitrite Negative (Negative) 07/31/22 02:53 Urine Bilirubin Negative (Negative) 07/31/22 02:53 Urine Urobilinogen Negative (Negative) 07/31/22 02:53 Ur Leukocyte Esterase Negative (Negative) 07/31/22 02:53 Urine WBC (Auto) 1-5 /hpf (0-5) 07/31/22 02:53 Urine RBC (Auto) 0-4 /hpf (0-4) 07/31/22 02:53 U Hyaline Cast (Auto) 5-10 /lpf (0-5) H 07/31/22 02:53 U Epithel Cells (Auto) 20-30 /lpf (0-5) H 07/31/22 02:53 Urine Bacteria (Auto) Negative (Negative) 07/31/22 02:53 SARS-CoV-2, RNA, NAAT NEGATIVE (NEGATIVE) 07/31/22 03:47 Blood Type O Positive 07/31/22 12:48 Blood Type Recheck O Positive 07/31/22 08:37 Antibody Screen NEGATIVE 07/31/22 12:48 Impressions Hip/Pelvis X-Ray 07/31/22 01:19 SINGLE VIEW PELVIS; 2 VIEWS RIGHT HIP CLINICAL HISTORY: Fall with right hip injury. FINDINGS: An AP view of the pelvis with AP and frog leg views of the right hip are obtained. No prior studies are available for comparison at the time of dictation. The skeletal structures are osteopenic. There is a comminuted intertrochanteric fracture of the right proximal femur with medial displacement of the lesser trochanter. Overlying soft tissue edema is noted. No additional acute fracture is seen involving the left hip or the bony pelvis. A left hip arthroplasty is in place. Mild arthritic change and joint space narrowing is noted in the right hip. Enthesophytes arise from the anterior superior iliac spines. Lumbosacral spondylosis is partially imaged. Numerous surgical clips project over the pelvis. Urological implants project over the perineum. There is no evidence of bowel obstruction. IMPRESSION: Intertrochanteric fracture of the right femur as above. Electronically signed by: Nolan Castellano M.D. 07/31/2022 8:15 AM Chest X-Ray 07/31/22 08:06 SINGLE VIEW CHEST CLINICAL HISTORY: Preoperative examination. Hip fracture. FINDINGS: An AP, portable, supine chest radiograph is obtained. No prior studies are available for comparison at the time of dictation. The examination is degraded by portable technique and patient rotation. The heart is mildly enlarged noting atherosclerotic calcification of the thoracic aorta. The pulmonary vasculature is not congested. Apparent right apical opacities likely represent superimposed shadow. No large pleural effusion or pneumothorax is seen. The skeletal structures are osteopenic. The bony thorax is grossly intact. Arthritic change is noted in the shoulders. Surgical clips are seen in the right chest wall. IMPRESSION: 1. Cardiomegaly without radiographic evidence of congestive failure. 2. Apparent right apical opacities likely represent superimposed shadows. Correlate clinically for evidence of a mild pneumonitis. ACT 112: Negative or not required by law. Electronically signed by: Nolan Castellano M.D. 07/31/2022 8:38 AM
[2022-07-31] MEDS ORDERED: ePHEDrine sulfate 50 MG/ML AMP ONE (14:12)
[2022-07-31] MEDS ORDERED: PHENYLEPHRINE HCL 10 MG/ML VIAL ONE (14:12)
--- NOTE | 2022-07-31 15:20 | Electrocardiogram Report ---
Test Reason : Blood Pressure : / mmHG Vent. Rate : 084 BPM Atrial Rate : 079 BPM P-R Int : 000 ms QRS Dur : 100 ms QT Int : 382 ms P-R-T Axes : 000 -25 069 degrees QTc Int : 451 ms Poor data quality, interpretation may be adversely affected Probable Sinus rhythm (baseline artifact interferes with interpretation) Low voltage QRS Incomplete right bundle branch block Nonspecific T wave abnormality Lateral leads Abnormal ECG No previous ECGs available Confirmed by Chavez Andujar ([id number]) on 07/31/2022 3:20:21 PM Referred By: REFERRED SELF Confirmed By:Chavez Andujar
--- NOTE | 2022-07-31 15:22 | Electrocardiogram Report ---
Test Reason : Blood Pressure : / mmHG Vent. Rate : 075 BPM Atrial Rate : 075 BPM P-R Int : 202 ms QRS Dur : 104 ms QT Int : 388 ms P-R-T Axes : 024 -28 036 degrees QTc Int : 433 ms Normal sinus rhythm Incomplete right bundle branch block Low voltage QRS Possible Old Anterior infarct Abnormal ECG When compared with ECG of 31-JUL-2022 01:26, Minimal criteria for Anterior infarct are now Present artifact no longer present Confirmed by Chavez Andujar ([id number]) on 07/31/2022 3:21:24 PM Referred By: REFERRED SELF Confirmed By:Chavez Andujar
[2022-07-31] MEDS ORDERED: NEOSTIGMINE METHYLSULFATE 1 MG/ML 10ML VIAL ONE (15:25)
[2022-07-31] MEDS ORDERED: GLYCOPYRROLATE 0.2 MG/ML VIAL ONE (15:25)
--- NOTE | 2022-07-31 15:38 | Post Operative Brief Note ---
Immediate Post Op Note v1 Date of Surgery July 31, 2022 Pre & Post Diagnosis Operation Date: 07/31/22 09:40 Pre-Op Diagnosis: Intertrochanteric fracture of the right femur Post-Op Diagnosis: Intertrochanteric fracture of the right femur I identified the patient and participated in the time-out.: Yes Procedure Operation Date: 07/31/22 09:40 Actual Procedures p Right Troch Nail(Right) - Landon Reyez MD Surgeon Landon Reyez MD Pointer Helper Amee Denton PA-C (No fellow avail) Estimated Blood Loss 75 Findings Consistent with Post-Op Diagnosis Fluids 800 cc Anesthesia Type General Complications none
--- NOTE | 2022-07-31 15:39 | Operative Report ---
Post Operative Report Pre & Post Diagnosis Operation Date: 07/31/22 09:40 Pre-Op Diagnosis: Intertrochanteric fracture of the right femur Post-Op Diagnosis: Intertrochanteric fracture of the right femur I identified the patient and participated in the time-out.: Yes Procedure Operation Date: 07/31/22 09:40 Actual Procedures p Right Troch Nail(Right) - Landon Reyez MD Surgeon Landon Reyez MD Protozoologist Amee Denton PA-C (No fellow avail) Estimated Blood Loss 75 Findings See Below Displaced right Intra-trochanteric hip fracture Fluids 800 cc Specimens n/a Anesthesia Type General Complications none Indications The patient is a 87 year old male who sustained a right hip fracture from a ground level fall. The patients treatment options of conservative versus surgical intervention were discussed. Since the patient was an ambulatory prior to the injury and to avoid the risks of bed sores, pulmonary complications, and to give the best chance for ambulation, I recommended surgery. The patient understands the risks of surgery, which include but are not limited to: bleeding, infection, re-operation, damage to nerves and arteries, continued pain, failure of the hardware, mal-union, non-union, DVT, and . In addition the patient is aware of the 20-30% morbidity associated with hip fracture for up to 1 year following a hip fracture. The patient understands all of these instructions and explanations, all of their questions have been satisfactorily addressed. The patient has elected to proceed with surgery and the informed consent was signed. Description of Procedure Amee Denton PA-C is assisting with positioning and closure due to fellow not available. IMPLANTS: 1) 11 mm/ 130 deg Intermediate(230 mm) Troch nail, Right (Synt hes). 2) 11 x 100 mm helical screw. 3) 5 x 40 mm locking screw. Procedure: The patient was taken to the Operating Room and placed in the supine position on the fracture table after general anesthesia was administered. A multidisciplinary time-out was performed identifying my initials on the right lower limb as the correct and operative limb. Prior to the incision being made, 2 grams of intravenous Ancef were given. Fluoroscopy was brought in to ensure adequate x-rays images could be obtained. A reduction was performed with traction, adduction, and slight external rotation of the operative limb. Once this was confirmed with Fluro, the right lower extremity was prepped in the standard fashion.The trochanter was marked as was the planned incision and trajectory of the helical screw. The incisions were injected with a 50:50 mixture of 1% Lidocaine plain and 0.5% Bupivacaine with epinephrine for a total of 10cc. The planned incision proximal to the greater trochanter was made and carried down through the Tensor Fascia Rosy to expose the tip of the greater trochanter and the starting position. A starting guide wire was placed and the starting reamer was used to create the entry hole for the implant. A size 11 was selected. The implant was then inserted without difficulty. A small second and third incisions were made for placement of the helical blade and distal locking screw. These were placed through the aiming guide in the standard fashion. Slight compression was achived in the standard fashion. The Helical blade was locked in place, to allow dynamic compression. The traction was released. Final x-rays were obtained showing TAD of less than 25mm. The wounds were copiously irrigated. The Tensor Fascia Rosy was closed with 0 Vicryl. The subcutaneous tissue was closed with 3-0 Vicryl. The skin was closed with jose. The incisions were covered with Xeroform, 4x4s, ABD, and Tegaderm. The patient was transfer to her hospital bed and taken to the PACU in stable condition. The sponge and needle counts were correct. Post-op Instructions:The patient was admitted to Med/Surg. The patient will be WBAT with a walker. The patient will be seen by PT/OT. Her labs will be checked in the am. DVT prophylaxis will be with TEDs, mechanical devices and 81mg ASA BID for 6 weeks will be started. I attest to the content of the Intraoperative Record and any orders documented therein. Any exceptions are noted below.
[2022-07-31] MEDS ORDERED: MoRPHine SULFATE 2 MG/ML CARP ONE (15:43)
--- NOTE | 2022-07-31 15:49 | Fluoroscopy Report ---
FL hip RT 2-3V CLINICAL HISTORY: RT TROCH NAIL TECHNIQUE: 7 views were obtained with the C-arm in the OR with the above procedure. Total fluoroscopy time was 77.4 seconds. Comparison: None available at the time of this dictation. FINDINGS/IMPRESSION: Intraoperative images were obtained of right hip trochanteric nail placement. De generative changes are seen in the hip joint. Please correlate with intraoperative fluoroscopy and operative report. ACT 112: Negative or not required by law. Electronically signed by: Hussain Miller M.D. 07/31/2022 3:47 PM
[2022-07-31] MEDS ORDERED: INSULIN ASPART PER UNIT SC STA (15:53)
--- NOTE | 2022-07-31 15:57 | Operative Report ---
Post Operative Report Pre & Post Diagnosis Operation Date: 07/31/22 09:40 Pre-Op Diagnosis: Intertrochanteric fracture of the right femur Post-Op Diagnosis: Intertrochanteric fracture of the right femur I identified the patient and participated in the time-out.: Yes Procedure Operation Date: 07/31/22 09:40 Actual Procedures p Right Troch Nail(Right) - Landon Nabila Reyez MD Surgeon Michael Reyez MD Audiovisual Technician Amee Denton PA-C (No fellow avail) Estimated Blood Loss 75 Findings Consistent with Post-Op Diagnosis see operative report Specimens see operative report Drains none Complications none Disposition Accompanied Patient To Recovery: Yes Indications This 87 year old male presented to the ED with complaints of right hip pain after falling at home. He was found to have an intertrochanteric fracture of the right hip. Patient elected to proceed with surgical intervention after being educated about potential risks and outcomes. Preoperative imaging was obtained. Description of Procedure Patient was taken to the operating room where he was given general anesthesia. He was prepped and draped in the usual sterile fashion. Please see Dr. Reyez's operative report for specifics of the procedure. I was present for the entire case from initial patient positioning through final wound closure. Assistance was provided in tissue retraction, hemostasis, fracture reduction, hardware placement, and final wound closure. Patient was taken to the recovery room in satisfactory condition. I attest to the content of the Intraoperative Record and any orders documented therein. Any exceptions are noted below.
--- NOTE | 2022-07-31 16:29 | Anesthesiology Progress Note ---
Date of Service July 31, 2022 Anesthesia Post Procedure Vital Signs Vital Signs: Temp Pulse Pulse Resp BP BP Pulse Ox 07/31/22 16:20 78 17 152/57 H 97 07/31/22 16:10 73 22 161/64 H 100 07/31/22 16:00 73 21 154/68 H 100 07/31/22 15:50 36.5 C 74 8 L 162/87 H 100 07/31/22 12:26 36.9 C 76 20 164/59 H 100 07/31/22 12:24 70 18 127/48 L 97 07/31/22 10:41 70 18 153/67 H 99 07/31/22 10:40 07/31/22 08:38 36.5 C 76 18 146/68 H 93 07/31/22 06:56 76 16 125/90 92 07/31/22 05:00 85 16 126/56 L 92 07/31/22 03:16 86 18 145/65 H 92 07/31/22 01:37 90 18 134/63 95 07/30/22 23:13 36.5 C 80 16 154/70 H 96 O2 Del Method O2 Del Method O2 Flow Rate 07/31/22 16:20 Nasal Cannula 2 07/31/22 16:10 Oxymask 2 07/31/22 16:00 Oxymask 4 07/31/22 15:50 Oxymask 6 07/31/22 12:26 Nasal Cannula 3 07/31/22 12:24 Nasal Cannula 3 07/31/22 10:41 Nasal Cannula 3 07/31/22 10:40 Room Air 07/31/22 08:38 Room Air 07/31/22 06:56 Room Air 07/31/22 05:00 Room Air 07/31/22 03:16 07/31/22 01:37 Room Air 07/30/22 23:13 Room Air Pain Intensity Right Hip: Pain Intensity: 7 Transfer of Care Handoff Completed per policy Notes Mental Status: alert / awake / arousable Patient Amnestic to Procedure: Yes Nausea / Vomiting: adequately controlled Pain: adequately controlled Airway Patency, RR, SpO2: stable & adequate BP & HR: stable & adequate Hydration State: stable & adequate Anesthetic Complications: no major complications apparent and Pt Satisfied with anesthetic care Notes: BG 222 tx'd with 4u novolog.
[2022-07-31] MEDS ORDERED: ONDANSETRON INJ 2 MG/ML 2 ML VIAL IV SCH (17:03)
[2022-07-31] MEDS: ASPIRIN 81 MG ECTAB PO SCH (21:40)
[2022-07-31] MEDS: ATORVASTATIN 40 MG TAB PO SCH (21:41)
[2022-07-31] MEDS: LANTUS PER UNIT CHARGE SQ SCH (21:43)
[2022-07-31] MEDS: LATANOPROST 0.005% OP SOLN 2.5 ML BTL OP SCH (22:55)
[2022-08-01] MEDS: SODIUM CHLORIDE 0.9% 1000ML 1,000 ML IV SCH (05:52)
[2022-08-01 06:06] LABS: Basophils # (auto) 0.02 K/uL (0-0.2); Basophils % (auto) 0.2 %; Immature Granulocytes # (auto) 0.06 K/uL (0.00-0.02); Immature Granulocytes % (auto) 0.6 %; Lymphocytes # (auto) 1.34 K/uL (1.2-3.4); Lymphocytes % (auto) 12.3 %; Mean Corpuscular Hemoglobin 31.4 pg (25.0-34.0); Mean Corpuscular Hgb Conc 33.3 g/dL (32.0-36.0); Mean Corpuscular Volume 94.1 fL (80.0-100.0); Mean Platelet Volume 9.8 fL (9.4-12.4); Neutrophils # (auto) 8.24 K/uL (1.4-6.5); Neutrophils % (auto) 75.9 %; Platelet Count 178 K/uL (130-400); RDW Coefficient of Variation 12.3 % (11.5-14.5); RDW Standard Deviation 42.8 fL (36.4-46.3); Red Blood Count 2.87 M/uL (4.63-6.08); White Blood Count 10.86 K/ul (4.8-10.8)
[2022-08-01 06:31] LABS: BUN Creatinine Ratio 18.3 (10-20); Calcium 8.6 mg/dl (8.5-10.1); Creatinine Clr Calc Pharmacy 50.8 ml/min; Est GFR (African American) 66.9 ml/min; Est GFR (Non-African American) 57.7 ml/min; Potassium 4.2 mmol/L (3.5-5.1)
[2022-08-01] MEDS: CALCIUM CARBONATE 1250MG TAB PO SCH (08:20)
[2022-08-01] MEDS: VITAMIN B COMPLEX TAB PO SCH (08:20)
[2022-08-01] MEDS: ASPIRIN 81 MG ECTAB PO SCH ×2 (08:20→20:04)
[2022-08-01] MEDS: hydroCHLOROthiazide 25 MG TAB PO SCH (08:21)
[2022-08-01] MEDS: ASCORBIC ACID 500 MG TAB PO SCH (08:21)
[2022-08-01] MEDS: CHOLECALCIFEROL 1,000 UNITS 25 MCG TAB PO SCH (08:22)
[2022-08-01] MEDS: INSULIN ASPART PER UNIT SC SCH ×4 (08:45→21:59)
[2022-08-01] MEDS: LANTUS PER UNIT CHARGE SQ SCH ×2 (08:46→21:59)
--- NOTE | 2022-08-01 09:37 | Orthopedic Progress Note ---
Date of Service August 01, 2022 Assessment & Plan (1) Fracture of hip, right, closed: Plan: POD #1 s/p ORIF R hip, doing as well as expected. Resume diet. WBAT. OOB to chair. Continue pain control. DVT prophylaxis: TEDs 3 weeks, foot pumps while in hospital, ASA 81 mg BID for 6 weeks. Changed the proximal dressing. PT/OT. D/C planning. Continue care per primary service. Present on Admission?: Yes Admission and Anticipated Discharge Date Admission Date: July 31, 2022 Subjective Right hip pain Physical Exam Physical Exam: RLE: Shortened. 1+ DP pulse, sensation to light touch intact distally. Wiggling toes. Calf soft and non-tender. Distal dressing clean, dry, and intact; the proximal dressing with mild bloody drainage and peeling up, jose intact. Results & Data ([facility]) Vital Signs (Past 12 Hours) Vital Signs Temp Pulse Resp BP Pulse Ox O2 Del Method 08/01/22 07:48 36.7 C 74 16 129/56 L 97 Room Air 08/01/22 04:03 36.6 C 68 14 118/76 95 Room Air 07/31/22 23:42 37 C 76 14 127/68 97 Room Air Laboratory Results Laboratory Results WBC 10.86 K/ul (4.8-10.8) H 08/01/22 05:37 RBC 2.87 M/uL (4.63-6.08) L 08/01/22 05:37 Hgb 9.0 g/dl (14.0-18.0) L 08/01/22 05:37 Hct 27.0 % (40.1-51.0) L 08/01/22 05:37 MCV 94.1 fL (80.0-100.0) 08/01/22 05:37 MCH 31.4 pg (25.0-34.0) 08/01/22 05:37 MCHC 33.3 g/dL (32.0-36.0) 08/01/22 05:37 RDW Std Deviation 42.8 fL (36.4-46.3) 08/01/22 05:37 RDW Coeff of [place] 12.3 % (11.5-14.5) 08/01/22 05:37 Plt Count 178 K/uL (130-400) 08/01/22 05:37 MPV 9.8 fL (9.4-12.4) 08/01/22 05:37 Immature Gran % (Auto) 0.6 % 08/01/22 05:37 Neut % (Auto) 75.9 % 08/01/22 05:37 Lymph % (Auto) 12.3 % 08/01/22 05:37 [place] % (Auto) 11.0 % 08/01/22 05:37 Eos % (Auto) 0.0 % 08/01/22 05:37 Baso % (Auto) 0.2 % 08/01/22 05:37 Neut # (Auto) 8.24 K/uL (1.4-6.5) H 08/01/22 05:37 Lymph # (Auto) 1.34 K/uL (1.2-3.4) 08/01/22 05:37 [place] # (Auto) 1.20 K/uL (0.24-0.82) H 08/01/22 05:37 Eos # (Auto) 0.00 K/uL (0-0.50) 08/01/22 05:37 Baso # (Auto) 0.02 K/uL (0-0.2) 08/01/22 05:37 Immature Gran # (Auto) 0.06 K/uL (0.00-0.02) H 08/01/22 05:37 PT 11.4 Seconds (9.0-12.0) 07/31/22 01:33 INR 1.1 (0.9-1.1) 07/31/22 01:33 APTT 24.8 Seconds (21.0-31.0) 07/31/22 01:33 PTT Ratio 0.9 07/31/22 01:33 Sodium 137 mmol/L (136-145) 08/01/22 05:37 Potassium 4.2 mmol/L (3.5-5.1) 08/01/22 05:37 Chloride 102 mmol/L (98-107) 08/01/22 05:37 Carbon Dioxide 27 mmol/L (21-32) 08/01/22 05:37 Anion Gap 8 (3-11) 08/01/22 05:37 BUN 21 mg/dl (6-23) 08/01/22 05:37 Creatinine 1.15 mg/dl (0.6-1.4) 08/01/22 05:37 Est Cr Clr Drug Dosing 50.8 ml/min 08/01/22 05:37 Est GFR ( Amer) 66.9 ml/min 08/01/22 05:37 Est GFR (Non-Af Amer) 57.7 ml/min 08/01/22 05:37 BUN/Creatinine Ratio 18.3 (10-20) 08/01/22 05:37 Glucose 214 mg/dl (70-99(Fasting)) H 08/01/22 05:37 POC Glucose 210 mg/dl (70-99) H 08/01/22 08:14 Estimat Average Glucose 151 mg/dl 07/31/22 08:37 Hemoglobin A1c 6.9 % (4.5-5.6) H 07/31/22 08:37 Calcium 8.6 mg/dl (8.5-10.1) 08/01/22 05:37 Magnesium 1.6 mg/dl (1.7-2.4) L 07/31/22 08:37 Total Bilirubin 0.4 mg/dl (0.2-1.0) 07/31/22 01:33 AST 18 U/L (13-39) 07/31/22 01:33 ALT 11 U/L (7-52) 07/31/22 01:33 Alkaline Phosphatase 79 U/L (34-104) 07/31/22 01:33 Total Protein 6.6 gm/dl (6.0-8.3) 07/31/22 01:33 Albumin 3.9 gm/dl (3.4-5.0) 07/31/22 01:33 Globulin 2.7 gm/dl (2.5-4.0) 07/31/22 01:33 Albumin/Globulin Ratio 1.4 (0.9-2) 07/31/22 01:33 25-OH Vitamin D Total 33.2 ng/ml (30-100) 08/01/22 05:37 Urine Color Yellow 07/31/22 02:53 Urine Appearance Clear (Clear) 07/31/22 02:53 Urine pH 6.5 (4.5-7.5) 07/31/22 02:53 Ur Specific [place] 1.022 (1.000-1.030) 07/31/22 02:53 Urine Protein 2+ (Negative) H 07/31/22 02:53 Urine Glucose (UA) Negative (Negative) 07/31/22 02:53 Urine Ketones Trace (Negative) H 07/31/22 02:53 Urine Blood Negative (Negative) 07/31/22 02:53 Urine Nitrite Negative (Negative) 07/31/22 02:53 Urine Bilirubin Negative (Negative) 07/31/22 02:53 Urine Urobilinogen Negative (Negative) 07/31/22 02:53 Ur Leukocyte Esterase Negative (Negative) 07/31/22 02:53 Urine WBC (Auto) 1-5 /hpf (0-5) 07/31/22 02:53 Urine RBC (Auto) 0-4 /hpf (0-4) 07/31/22 02:53 U Hyaline Cast (Auto) 5-10 /lpf (0-5) H 07/31/22 02:53 U Epithel Cells (Auto) 20-30 /lpf (0-5) H 07/31/22 02:53 Urine Bacteria (Auto) Negative (Negative) 07/31/22 02:53 SARS-CoV-2, RNA, NAAT NEGATIVE (NEGATIVE) 07/31/22 03:47 Blood Type O Positive 07/31/22 12:48 Blood Type Recheck O Positive 07/31/22 08:37 Antibody Screen NEGATIVE 07/31/22 12:48 Impressions Hip/Pelvis X-Ray 07/31/22 01:19 SINGLE VIEW PELVIS; 2 VIEWS RIGHT HIP CLINICAL HISTORY: Fall with right hip injury. FINDINGS: An AP view of the pelvis with AP and frog leg views of the right hip are obtained. No prior studies are available for comparison at the time of dictation. The skeletal structures are osteopenic. There is a comminuted intertrochanteric fracture of the right proximal femur with medial displacement of the lesser trochanter. Overlying soft tissue edema is noted. No additional acute fracture is seen involving the left hip or the bony pelvis. A left hip arthroplasty is in place. Mild arthritic change and joint space narrowing is noted in the right hip. Enthesophytes arise from the anterior superior iliac spines. Lumbosacral spondylosis is partially imaged. Numerous surgical clips project over the pelvis. Urological implants project over the perineum. There is no evidence of bowel obstruction. IMPRESSION: Intertrochanteric fracture of the right femur as above. Electronically signed by: Nolan Castellano M.D. 07/31/2022 8:15 AM Chest X-Ray 07/31/22 08:06 SINGLE VIEW CHEST CLINICAL HISTORY: Preoperative examination. Hip fracture. FINDINGS: An AP, portable, supine chest radiograph is obtained. No prior studies are available for comparison at the time of dictation. The examination is degraded by portable technique and patient rotation. The heart is mildly enlarged noting atherosclerotic calcification of the thoracic aorta. The pulmonary vasculature is not congested. Apparent right apical opacities likely represent superimposed shadow. No large pleural effusion or pneumothorax is seen. The skeletal structures are osteopenic. The bony thorax is grossly intact. Arthritic change is noted in the shoulders. Surgical clips are seen in the right chest wall. IMPRESSION: 1. Cardiomegaly without radiographic evidence of congestive failure. 2. Apparent right apical opacities likely represent superimposed shadows. Correlate clinically for evidence of a mild pneumonitis. ACT 112: Negative or not required by law. Electronically signed by: Nolan Castellano M.D. 07/31/2022 8:38 AM Hip X-Ray 07/31/22 12:30 FL hip RT 2-3V CLINICAL HISTORY: RT TROCH NAIL TECHNIQUE: 7 views were obtained with the C-arm in the OR with the above procedure. Total fluoroscopy time was 77.4 seconds. Comparison: None available at the time of this dictation. FINDINGS/IMPRESSION: Intraoperative images were obtained of right hip trochanteric nail placement. Degenerative changes are seen in the hip joint. Please correlate with intraoperative fluoroscopy and operative report. ACT 112: Negative or not required by law. Electronically signed by: Hussain Miller M.D. 07/31/2022 3:47 PM
[2022-08-01] MEDS ORDERED: HEPARIN SOD 5,000 UNIT/0.5 ML VIAL SQ SCH (14:00)
--- NOTE | 2022-08-01 14:45 | Hospitalist Progress Note ---
Date of Service August 01, 2022 Assessment & Plan (1) Fracture of hip, right, closed: (2) Fall: Plan: Presented from [facility] assisted living Had a mechanical fall and presented to the ED. Hip x-ray shows intertrochanteric fracture of right femur. s/p right trochanteric nailing on 07/31 Plan; Continue pain control. PT OT Aspirin twice daily as DVT prophylaxis as per orthopedic for next 3 weeks. Monitor for postop fever, chest pain, shortness of breath, ileus and UTI. Plan 2. 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 Placed on 15 units Lantus twice daily and sliding scale follow the blood sugars. A1c of 6.9%. 3. History of hypertension. Continue captopril and hydrochlorothiazide. We will monitor his blood pressure. 4. Hyperlipidemia, on statin. 5. History of prostate cancer, status post chemotherapy. 6. Deep venous thrombosis prophylaxis. Aspirin twice daily Level 1 full code. PT/OT prior to discharge. Social service to help with discharge planning. Admission and Anticipated Discharge Date Admission Date: July 31, 2022 Subjective Patient seen and examined at bedside. He reports pain at the operative site. No complaint of fever, chills, chest pain, shortness of breath, abdominal pain or urinary symptoms. Review of Systems Review of Systems: All systems reviewed & are unremarkable except as noted in Subjective Physical Exam Physical Exam: Constitutional: Lying down on the bed comfortably; not in distress. Appear stated age. Respiratory: normal respiratory effort, lungs clear to auscultation, no wheeze, rales, rhonchi. Normal insp/exp effort, no accessory muscle use Cardiovascular: RRR, no murmur, no edema Vessels: no JVD or carotid bruit Chest: normal inspection of chest Abdomen: normal bowel sounds, soft, nontender, no hepatosplenomegaly Musculoskeletal: Bandages intact in right hip; no overlying soakage. Skin: no rashes, warm and dry normal turgor Neurologic: PERRL, EOMI, accommodation nl, no face palsy, no dysarthria CN's II- XI intact bilaterally and moves all extremities Psychiatric: A+Ox3, euthymic affect Lymphatic: no cervical or axillary lymphadenopathy : deferred Results & Data Results & Data ([facility]) Vital Signs (Past 12 Hours) Vital Signs Temp Pulse Resp BP Pulse Ox O2 Del Method O2 Del Method 08/01/22 10:00 Room Air 08/01/22 07:48 36.7 C 74 16 129/56 L 97 Room Air 08/01/22 04:03 36.6 C 68 14 118/76 95 Room Air Laboratory Results Laboratory Results WBC 10.86 K/ul (4.8-10.8) H 08/01/22 05:37 RBC 2.87 M/uL (4.63-6.08) L 08/01/22 05:37 Hgb 9.0 g/dl (14.0-18.0) L 08/01/22 05:37 Hct 27.0 % (40.1-51.0) L 08/01/22 05:37 MCV 94.1 fL (80.0-100.0) 08/01/22 05:37 MCH 31.4 pg (25.0-34.0) 08/01/22 05:37 MCHC 33.3 g/dL (32.0-36.0) 08/01/22 05:37 RDW Std Deviation 42.8 fL (36.4-46.3) 08/01/22 05:37 RDW Coeff of [place] 12.3 % (11.5-14.5) 08/01/22 05:37 Plt Count 178 K/uL (130-400) 08/01/22 05:37 MPV 9.8 fL (9.4-12.4) 08/01/22 05:37 Immature Gran % (Auto) 0.6 % 08/01/22 05:37 Neut % (Auto) 75.9 % 08/01/22 05:37 Lymph % (Auto) 12.3 % 08/01/22 05:37 [place] % (Auto) 11.0 % 08/01/22 05:37 Eos % (Auto) 0.0 % 08/01/22 05:37 Baso % (Auto) 0.2 % 08/01/22 05:37 Neut # (Auto) 8.24 K/uL (1.4-6.5) H 08/01/22 05:37 Lymph # (Auto) 1.34 K/uL (1.2-3.4) 08/01/22 05:37 [place] # (Auto) 1.20 K/uL (0.24-0.82) H 08/01/22 05:37 Eos # (Auto) 0.00 K/uL (0-0.50) 08/01/22 05:37 Baso # (Auto) 0.02 K/uL (0-0.2) 08/01/22 05:37 Immature Gran # (Auto) 0.06 K/uL (0.00-0.02) H 08/01/22 05:37 PT 11.4 Seconds (9.0-12.0) 07/31/22 01:33 INR 1.1 (0.9-1.1) 07/31/22 01:33 APTT 24.8 Seconds (21.0-31.0) 07/31/22 01:33 PTT Ratio 0.9 07/31/22 01:33 Sodium 137 mmol/L (136-145) 08/01/22 05:37 Potassium 4.2 mmol/L (3.5-5.1) 08/01/22 05:37 Chloride 102 mmol/L (98-107) 08/01/22 05:37 Carbon Dioxide 27 mmol/L (21-32) 08/01/22 05:37 Anion Gap 8 (3-11) 08/01/22 05:37 BUN 21 mg/dl (6-23) 08/01/22 05:37 Creatinine 1.15 mg/dl (0.6-1.4) 08/01/22 05:37 Est Cr Clr Drug Dosing 50.8 ml/min 08/01/22 05:37 Est GFR ( Amer) 66.9 ml/min 08/01/22 05:37 Est GFR (Non-Af Amer) 57.7 ml/min 08/01/22 05:37 BUN/Creatinine Ratio 18.3 (10-20) 08/01/22 05:37 Glucose 214 mg/dl (70-99(Fasting)) H 08/01/22 05:37 POC Glucose 255 mg/dl (70-99) H 08/01/22 12:40 Estimat Average Glucose 151 mg/dl 07/31/22 08:37 Hemoglobin A1c 6.9 % (4.5-5.6) H 07/31/22 08:37 Calcium 8.6 mg/dl (8.5-10.1) 08/01/22 05:37 Magnesium 1.6 mg/dl (1.7-2.4) L 07/31/22 08:37 Total Bilirubin 0.4 mg/dl (0.2-1.0) 07/31/22 01:33 AST 18 U/L (13-39) 07/31/22 01:33 ALT 11 U/L (7-52) 07/31/22 01:33 Alkaline Phosphatase 79 U/L (34-104) 07/31/22 01:33 Total Protein 6.6 gm/dl (6.0-8.3) 07/31/22 01:33 Albumin 3.9 gm/dl (3.4-5.0) 07/31/22 01:33 Globulin 2.7 gm/dl (2.5-4.0) 07/31/22 01:33 Albumin/Globulin Ratio 1.4 (0.9-2) 07/31/22 01:33 25-OH Vitamin D Total 33.2 ng/ml (30-100) 08/01/22 05:37 Urine Color Yellow 07/31/22 02:53 Urine Appearance Clear (Clear) 07/31/22 02:53 Urine pH 6.5 (4.5-7.5) 07/31/22 02:53 Ur Specific [place] 1.022 (1.000-1.030) 07/31/22 02:53 Urine Protein 2+ (Negative) H 07/31/22 02:53 Urine Glucose (UA) Negative (Negative) 07/31/22 02:53 Urine Ketones Trace (Negative) H 07/31/22 02:53 Urine Blood Negative (Negative) 07/31/22 02:53 Urine Nitrite Negative (Negative) 07/31/22 02:53 Urine Bilirubin Negative (Negative) 07/31/22 02:53 Urine Urobilinogen Negative (Negative) 07/31/22 02:53 Ur Leukocyte Esterase Negative (Negative) 07/31/22 02:53 Urine WBC (Auto) 1-5 /hpf (0-5) 07/31/22 02:53 Urine RBC (Auto) 0-4 /hpf (0-4) 07/31/22 02:53 U Hyaline Cast (Auto) 5-10 /lpf (0-5) H 07/31/22 02:53 U Epithel Cells (Auto) 20-30 /lpf (0-5) H 07/31/22 02:53 Urine Bacteria (Auto) Negative (Negative) 07/31/22 02:53 SARS-CoV-2, RNA, NAAT NEGATIVE (NEGATIVE) 07/31/22 03:47 Blood Type O Positive 07/31/22 12:48 Blood Type Recheck O Positive 07/31/22 08:37 Antibody Screen NEGATIVE 07/31/22 12:48 Impressions Hip/Pelvis X-Ray 07/31/22 01:19 SINGLE VIEW PELVIS; 2 VIEWS RIGHT HIP CLINICAL HISTORY: Fall with right hip injury. FINDINGS: An AP view of the pelvis with AP and frog leg views of the right hip are obtained. No prior studies are available for comparison at the time of dictation. The skeletal structures are osteopenic. There is a comminuted intertrochanteric fracture of the right proximal femur with medial displacement of the lesser trochanter. Overlying soft tissue edema is noted. No additional acute fracture is seen involving the left hip or the bony pelvis. A left hip arthroplasty is in place. Mild arthritic change and joint space narrowing is noted in the right hip. Enthesophytes arise from the anterior superior iliac spines. Lumbosacral spondylosis is partially imaged. Numerous surgical clips project over the pelvis. Urological implants project over the perineum. There is no evidence of bowel obstruction. IMPRESSION: Intertrochanteric fracture of the right femur as above. Electronically signed by: Nolan Castellano M.D. 07/31/2022 8:15 AM Chest X-Ray 07/31/22 08:06 SINGLE VIEW CHEST CLINICAL HISTORY: Preoperative examination. Hip fracture. FINDINGS: An AP, portable, supine chest radiograph is obtained. No prior studies are available for comparison at the time of dictation. The examination is degraded by portable technique and patient rotation. The heart is mildly enlarged noting atherosclerotic calcification of the thoracic aorta. The pulmonary vasculature is not congested. Apparent right apical opacities likely represent superimposed shadow. No large pleural effusion or pneumothorax is seen. The skeletal structures are osteopenic. The bony thorax is grossly intact. Arthritic change is noted in the shoulders. Surgical clips are seen in the right chest wall. IMPRESSION: 1. Cardiomegaly without radiographic evidence of congestive failure. 2. Apparent right apical opacities likely represent superimposed shadows. Correlate clinically for evidence of a mild pneumonitis. ACT 112: Negative or not required by law. Electronically signed by: Nolan Castellano M.D. 07/31/2022 8:38 AM Hip X-Ray 07/31/22 12:30 FL hip RT 2-3V CLINICAL HISTORY: RT TROCH NAIL TECHNIQUE: 7 views were obtained with the C-arm in the OR with the above procedure. Total fluoroscopy time was 77.4 seconds. Comparison: None available at the time of this dictation. FINDINGS/IMPRESSION: Intraoperative images were obtained of right hip trochanteric nail placement. Degenerative changes are seen in the hip joint. Please correlate with intraoperative fluoroscopy and operative report. ACT 112: Negative or not required by law. Electronically signed by: Hussain Miller M.D. 07/31/2022 3:47 PM
[2022-08-01] MEDS: NETARSUDIL MESYLATE 37 DROPS/2.5 ML BTL OP SCH (19:56)
[2022-08-01] MEDS: ATORVASTATIN 40 MG TAB PO SCH (20:04)
[2022-08-01] MEDS: LATANOPROST 0.005% OP SOLN 2.5 ML BTL OP SCH (20:06)
[2022-08-01] MEDS ORDERED: SODIUM CHLORIDE 0.9% 1000ML 1,000 ML IV SCH ×2 (21:45→23:45)
--- NOTE | 2022-08-01 22:28 | CT Scan Report ---
CT SCAN OF THE BRAIN WITHOUT IV CONTRAST CLINICAL HISTORY: Change in mental status. COMPARISON STUDY: No priors. TECHNIQUE: Unenhanced axial CT scan of the brain is performed from the vertex to the skull base. A do se lowering technique was utilized adhering to the principles of ALARA. CT DOSE: 614.27 mGy.cm FINDINGS: Brain parenchyma: There is age-related involutional change noting moderate subcortical and periventri cular microangiopathic disease. There is no hemorrhage, mass effect, or evidence of acute territorial ischemia by CT criteria. 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 Black-white m atter differentiation is preserved. No extra-axial fluid collection is seen. Ventricles, sulci, cisterns: Prominent secondary to involutional change. Intracranial vasculature: There is atherosclerotic calcification of the cavernous carotid and vertebr al arteries. Calvarium: Unremarkable. Sinuses and mastoids: The visualized paranasal sinuses are clear. The mastoid air cells are well pneu matized. Orbits: The bony orbits are grossly intact. There are bilateral ocular lens implants. IMPRESSION: There is no hemorrhage, mass effect, or evidence of acute territorial ischemia by CT gudelia ramos. ACT 112: Negative or not required by law. Electronically signed by: Nolan Castellano M.D. 08/01/2022 10:27 PM
[2022-08-01 23:33] LABS: Base Excess ABG 7.2 mEq/L (-9-1.8); HCO3 ABG 31 mmol/L (19-24); Oxygen Saturation ABG 98.1 % (90-95); PCO2 ABG 41 mmHg (35-46); PO2 ABG 78 mmHg (80-95); pH ABG 7.49 (7.35-7.45)
[2022-08-01 23:34] LABS: Basophils # (auto) 0.03 K/uL (0-0.2); Basophils % (auto) 0.3 %; Eosinophils # (auto) 0.03 K/uL (0-0.50); Eosinophils % (auto) 0.3 %; Hematocrit (blood only) 22.6 % (40.1-51.0); Hemoglobin 7.5 g/dl (14.0-18.0); Immature Granulocytes # (auto) 0.04 K/uL (0.00-0.02); Immature Granulocytes % (auto) 0.4 %; Lymphocytes # (auto) 0.76 K/uL (1.2-3.4); Lymphocytes % (auto) 6.7 %; Mean Corpuscular Hemoglobin 30.7 pg (25.0-34.0); Mean Corpuscular Hgb Conc 33.2 g/dL (32.0-36.0); Mean Corpuscular Volume 92.6 fL (80.0-100.0); Mean Platelet Volume 9.9 fL (9.4-12.4); Monocytes # (auto) 1.13 K/uL (0.24-0.82); Neutrophils # (auto) 9.27 K/uL (1.4-6.5); Neutrophils % (auto) 82.3 %; Platelet Count 154 K/uL (130-400); RDW Coefficient of Variation 12.7 % (11.5-14.5); RDW Standard Deviation 42.9 fL (36.4-46.3); Red Blood Count 2.44 M/uL (4.63-6.08); White Blood Count 11.26 K/ul (4.8-10.8)
[2022-08-01 23:50] LABS: Acanthocytes 2+
[2022-08-02 00:04] LABS: Troponin I High Sensitivity 29.6 pg/ml (0-20)
[2022-08-02 00:10] LABS: Albumin Globulin Ratio 1.3 (0.9-2); BUN Creatinine Ratio 23.1 (10-20); Bilirubin,Total 0.4 mg/dl (0.2-1.0); Calcium 8.3 mg/dl (8.5-10.1); Creatinine Clr Calc Pharmacy 43.6 ml/min; Est GFR (African American) 55.6 ml/min; Globulin 2.3 gm/dl (2.5-4.0); Magnesium 1.6 mg/dl (1.7-2.4); Potassium 3.9 mmol/L (3.5-5.1); Total Protein 5.3 gm/dl (6.0-8.3)
[2022-08-02 00:19] LABS: Allen Test Pos (Pos)
[2022-08-02] MEDS: MAGNESIUM SULFATE / D5W 1 GM/100 ML BAG IV SCH ×2 (00:41→02:45)
--- NOTE | 2022-08-02 07:10 | Electrocardiogram Report ---
Test Reason : Blood Pressure : / mmHG Vent. Rate : 069 BPM Atrial Rate : 069 BPM P-R Int : 208 ms QRS Dur : 102 ms QT Int : 436 ms P-R-T Axes : 058 -24 010 degrees QTc Int : 467 ms Normal sinus rhythm Low voltage QRS possible Inferior infarct , age undetermined Abnormal ECG When compared with ECG of 31-JUL-2022 08:33, Nonspecific T wave abnormality now evident in Inferior leads T wave inversion now evident in Anterior leads Confirmed by Nixon Duong ([id number]) on 08/02/2022 7:09:53 AM Referred By: REFERRED SELF Confirmed By:Frank Duong
[2022-08-02 07:23] LABS: Basophils # (auto) 0.03 K/uL (0-0.2); Basophils % (auto) 0.3 %; Eosinophils # (auto) 0.02 K/uL (0-0.50); Eosinophils % (auto) 0.2 %; Hematocrit (blood only) 21.6 % (40.1-51.0); Hemoglobin 7.3 g/dl (14.0-18.0); Immature Granulocytes # (auto) 0.03 K/uL (0.00-0.02); Immature Granulocytes % (auto) 0.3 %; Lymphocytes # (auto) 1.53 K/uL (1.2-3.4); Lymphocytes % (auto) 15.2 %; Mean Corpuscular Hemoglobin 31.6 pg (25.0-34.0); Mean Corpuscular Hgb Conc 33.8 g/dL (32.0-36.0); Mean Corpuscular Volume 93.5 fL (80.0-100.0); Monocytes # (auto) 1.13 K/uL (0.24-0.82); Monocytes % (auto) 11.3 %; Neutrophils % (auto) 72.7 %; Platelet Count 151 K/uL (130-400); RDW Coefficient of Variation 12.8 % (11.5-14.5); RDW Standard Deviation 44.1 fL (36.4-46.3); Red Blood Count 2.31 M/uL (4.63-6.08); White Blood Count 10.04 K/ul (4.8-10.8)
[2022-08-02 07:48] LABS: BUN Creatinine Ratio 27.9 (10-20); Calcium 8.4 mg/dl (8.5-10.1); Est GFR (African American) 69.8 ml/min; Est GFR (Non-African American) 60.2 ml/min; Potassium 3.7 mmol/L (3.5-5.1)
[2022-08-02 07:49] LABS: Acanthocytes 1+
[2022-08-02 07:53] LABS: Troponin I High Sensitivity 28.8 pg/ml (0-20)
[2022-08-02] MEDS: INSULIN ASPART PER UNIT SC SCH ×4 (09:24→20:59)
[2022-08-02] MEDS: ASCORBIC ACID 500 MG TAB PO SCH (09:25)
[2022-08-02] MEDS: CHOLECALCIFEROL 1,000 UNITS 25 MCG TAB PO SCH (09:25)
[2022-08-02] MEDS: VITAMIN B COMPLEX TAB PO SCH (09:25)
[2022-08-02] MEDS: hydroCHLOROthiazide 25 MG TAB PO SCH (09:25)
[2022-08-02] MEDS: CALCIUM CARBONATE 1250MG TAB PO SCH (09:25)
[2022-08-02] MEDS: NETARSUDIL MESYLATE 37 DROPS/2.5 ML BTL OP SCH (09:26)
[2022-08-02] MEDS: ASPIRIN 81 MG ECTAB PO SCH ×2 (09:26→20:16)
[2022-08-02] MEDS: LANTUS PER UNIT CHARGE SQ SCH ×2 (10:01→20:58)
--- NOTE | 2022-08-02 10:55 | Orthopedic Progress Note ---
Date of Service August 02, 2022 Assessment & Plan (1) Intertrochanteric fracture of right hip: Plan: POD #2 s/p ORIF R hip, doing as well as expected. Resume diet. WBAT. OOB to chair. Continue pain control. DVT prophylaxis: TEDs 3 weeks, foot pumps while in hospital, ASA 81 mg BID for 6 weeks. Dressings will be changed by nursing staff today. PT/OT. D/C planning. Continue care per primary service Acute anemia blood loss: H&H are noted to be low. Transfusion per hospitalist service if needed. He is currently asymptomatic. Patient was seen in conjunction with Dr. Reyez, who also evaluated the patient today. Admission and Anticipated Discharge Date Admission Date: July 31, 2022 Subjective Patient was examined in his room this morning. He was sleeping upon my entry. He did wake easily with verbal and physical cues. He denies any pain as long as he was nonweightbearing. He states that his pain does increase when he attempts to stand. He had difficulty with PT yesterday. No other complaints at this point. Physical Exam Physical Exam: General: Well-developed, well-nourished, elderly male, in no acute distress. Sleeping when initially evaluated. Wakes easily. Skin: Warm dry with good turgor. No rashes. No ecchymosis or significant edema. Postsurgical dressings are in place over the right thigh. Musculoskeletal: Patient has mild discomfort with palpation over the lateral aspect of his hip. He has no significant discomfort with passive flexion of the knee to around 30 degrees. He describes some soreness laterally as well as across the anterior flexion crease with logrolling of the hip. No exquisite pain. He is able to actively move his ankles and toes. Neurologic: Gross sensation is intact across the right foot and ankle as well as lower extremity, via soft touch. Peripheral pulses are 2+. Results & Data ([facility]) Vital Signs (Past 12 Hours) Vital Signs Temp Pulse Resp BP Pulse Ox O2 Del Method O2 Del Method 08/02/22 10:00 Room Air 08/02/22 07:45 36.7 C 76 20 141/49 H 95 Room Air 08/02/22 06:16 36.3 C L 75 14 131/56 L 94 Room Air 08/02/22 04:40 36.4 C L 80 16 136/56 L 95 Room Air 08/02/22 01:22 36.4 C L 77 16 143/55 H 94 Room Air 08/02/22 00:09 36.6 C 72 16 106/56 L 95 Room Air 08/01/22 23:40 36.7 C 73 16 98/42 L 95 Room Air Laboratory Results H&H today are 7.3 and 21.6. These are lower than yesterday. White count stable at 10.04. CRP is unremarkable. BUN is stable at 31. Glucose 161 this morning. Troponin was elevated at 28.8 however it is decreased from yesterday at 29.6. (1) Intertrochanteric fracture of right hip Encounter type: initial encounter Fracture alignment: nondisplaced Fracture type: closed Qualified Code(s): S72.144A - Nondisplaced intertrochanteric fracture of right femur, initial encounter for closed fracture
--- NOTE | 2022-08-02 12:24 | Hospitalist Progress Note ---
Date of Service August 02, 2022 Assessment & Plan (1) Fracture of hip, right, closed: (2) Fall: Plan: Presented from [facility] assisted living Had a mechanical fall and presented to the ED. Hip x-ray shows intertrochanteric fracture of right femur. s/p right trochanteric nailing on 07/31 Plan; Continue pain control. PT OT Aspirin twice daily as DVT prophylaxis as per orthopedic for next 3 weeks. Monitor for postop fever, chest pain, shortness of breath, ileus and UTI. Plan 2. 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 Placed on 15 units Lantus twice daily and sliding scale follow the blood sugars. A1c of 6.9%. 3. History of hypertension. Continue captopril and hydrochlorothiazide. We will monitor his blood pressure. 4. Hyperlipidemia, on statin. 5. History of prostate cancer, status post chemotherapy. 6. Deep venous thrombosis prophylaxis. Aspirin twice daily Level 1 full code. PT/OT prior to discharge. Social service to help with discharge planning. Admission and Anticipated Discharge Date Admission Date: July 31, 2022 Physical Exam Physical Exam: Constitutional: Lying down on the bed comfortably; not in distress. Appear stated age. Respiratory: normal respiratory effort, lungs clear to auscultation, no wheeze, rales, rhonchi. Normal insp/exp effort, no accessory muscle use Cardiovascular: RRR, no murmur, no edema Vessels: no JVD or carotid bruit Chest: normal inspection of chest Abdomen: normal bowel sounds, soft, nontender, no hepatosplenomegaly Musculoskeletal: Bandages intact in right hip; no overlying soakage. Skin: no rashes, warm and dry normal turgor Neurologic: PERRL, EOMI, accommodation nl, no face palsy, no dysarthria CN's II- XI intact bilaterally and moves all extremities Psychiatric: A+Ox3, euthymic affect Lymphatic: no cervical or axillary lymphadenopathy : deferred Results & Data Results & Data ([facility]) Vital Signs (Past 12 Hours) Vital Signs Temp Pulse Resp BP Pulse Ox O2 Del Method O2 Del Method 08/02/22 10:00 Room Air 08/02/22 07:45 36.7 C 76 20 141/49 H 95 Room Air 08/02/22 06:16 36.3 C L 75 14 131/56 L 94 Room Air 08/02/22 04:40 36.4 C L 80 16 136/56 L 95 Room Air 08/02/22 01:22 36.4 C L 77 16 143/55 H 94 Room Air
--- NOTE | 2022-08-02 12:46 | Hospitalist Progress Note ---
Date of Service August 02, 2022 Assessment & Plan (1) Fracture of hip, right, closed: (2) Fall: Plan: Presented from [facility] Had a mechanical fall and presented to the ED. Hip x-ray shows intertrochanteric fracture of right femur. s/p right trochanteric nailing on 07/31 Plan; Continue pain control. PT OT Aspirin twice daily as DVT prophylaxis as per orthopedic for next 6 weeks. Monitor for postop fever, chest pain, shortness of breath, ileus and UTI. (3) Acute blood loss anemia: Plan: Hemoglobin down trended from 11.2-7.3 after surgery. No active signs of bleeding. Plan; monitor hemoglobin for now; will transfuse if hemoglobin is less than 7. Plan 2. 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 Placed on 15 units Lantus twice daily and sliding scale follow the blood sugars. A1c of 6.9%. 3. History of hypertension. Was hypotensive in the evening. Will hold captopril. Continue on hydrochlorothiazide. 4. Hyperlipidemia, on statin. 5. History of prostate cancer, status post chemotherapy. 6. Deep venous thrombosis prophylaxis. Aspirin twice daily Level 1 full code. PT/OT prior to discharge. Social service to help with discharge planning. Admission and Anticipated Discharge Date Admission Date: July 31, 2022 Subjective Overnight, patient appeared to less responsive. ABG unremarkable. In the morning, patient was sleeping but easily awakeable by voice. He is alert oriented x3. Reports pain on movement of his left hip. Afebrile overnight. Review of Systems Review of Systems: All systems reviewed & are unremarkable except as noted in Subjective Physical Exam Physical Exam: Constitutional: Lying down on the bed comfortably; not in distress. Appear stated age. Respiratory: normal respiratory effort, lungs clear to auscultation, no wheeze, rales, rhonchi. Normal insp/exp effort, no accessory muscle use Cardiovascular: RRR, no murmur, no edema Vessels: no JVD or carotid bruit Chest: normal inspection of chest Abdomen: normal bowel sounds, soft, nontender, no hepatosplenomegaly Musculoskeletal: Bandages intact in right hip; no overlying soakage. Skin: no rashes, warm and dry normal turgor Neurologic: PERRL, EOMI, accommodation nl, no face palsy, no dysarthria CN's II- XI intact bilaterally and moves all extremities Psychiatric: A+Ox3, euthymic affect Lymphatic: no cervical or axillary lymphadenopathy : deferred Results & Data Results & Data ([facility]) Vital Signs (Past 12 Hours) Vital Signs Temp Pulse Resp BP Pulse Ox O2 Del Method O2 Del Method 08/02/22 10:00 Room Air 08/02/22 07:45 36.7 C 76 20 141/49 H 95 Room Air 08/02/22 06:16 36.3 C L 75 14 131/56 L 94 Room Air 08/02/22 04:40 36.4 C L 80 16 136/56 L 95 Room Air 08/02/22 01:22 36.4 C L 77 16 143/55 H 94 Room Air Laboratory Results Laboratory Results WBC 10.04 K/ul (4.8-10.8) 08/02/22 06:51 RBC 2.31 M/uL (4.63-6.08) L 08/02/22 06:51 Hgb 7.3 g/dl (14.0-18.0) L 08/02/22 06:51 Hct 21.6 % (40.1-51.0) L 08/02/22 06:51 MCV 93.5 fL (80.0-100.0) 08/02/22 06:51 MCH 31.6 pg (25.0-34.0) 08/02/22 06:51 MCHC 33.8 g/dL (32.0-36.0) 08/02/22 06:51 RDW Std Deviation 44.1 fL (36.4-46.3) 08/02/22 06:51 RDW Coeff of Shirley 12.8 % (11.5-14.5) 08/02/22 06:51 Plt Count 151 K/uL (130-400) 08/02/22 06:51 MPV 10.0 fL (9.4-12.4) 08/02/22 06:51 Immature Gran % (Auto) 0.3 % 08/02/22 06:51 Neut % (Auto) 72.7 % 08/02/22 06:51 Lymph % (Auto) 15.2 % 08/02/22 06:51 Logan % (Auto) 11.3 % 08/02/22 06:51 Eos % (Auto) 0.2 % 08/02/22 06:51 Baso % (Auto) 0.3 % 08/02/22 06:51 Neut # (Auto) 7.30 K/uL (1.4-6.5) H 08/02/22 06:51 Lymph # (Auto) 1.53 K/uL (1.2-3.4) 08/02/22 06:51 Logan # (Auto) 1.13 K/uL (0.24-0.82) H 08/02/22 06:51 Eos # (Auto) 0.02 K/uL (0-0.50) 08/02/22 06:51 Baso # (Auto) 0.03 K/uL (0-0.2) 08/02/22 06:51 Immature Gran # (Auto) 0.03 K/uL (0.00-0.02) H 08/02/22 06:51 Acanthocytes (Spur) 1+ 08/02/22 06:51 PT 11.4 Seconds (9.0-12.0) 07/31/22 01:33 INR 1.1 (0.9-1.1) 07/31/22 01:33 APTT 24.8 Seconds (21.0-31.0) 07/31/22 01:33 PTT Ratio 0.9 07/31/22 01:33 ABG pH 7.49 (7.35-7.45) H 08/01/22 23:20 ABG pCO2 41 mmHg (35-46) 08/01/22 23:20 ABG pO2 78 mmHg (80-95) L 08/01/22 23:20 ABG HCO3 31 mmol/L (19-24) H 08/01/22 23:20 ABG O2 Saturation 98.1 % (90-95) H 08/01/22 23:20 ABG Base Excess 7.2 mEq/L (-9-1.8) H 08/01/22 23:20 Amadeo Test Pos (Pos) 08/01/22 23:20 Oxygen Given ROOM AIR 08/01/22 23:20 Sodium 136 mmol/L (136-145) 08/02/22 06:51 Potassium 3.7 mmol/L (3.5-5.1) 08/02/22 06:51 Chloride 103 mmol/L (98-107) 08/02/22 06:51 Carbon Dioxide 27 mmol/L (21-32) 08/02/22 06:51 Anion Gap 6 (3-11) 08/02/22 06:51 BUN 31 mg/dl (6-23) H 08/02/22 06:51 Creatinine 1.11 mg/dl (0.6-1.4) 08/02/22 06:51 Est Cr Clr Drug Dosing 53.0 ml/min 08/02/22 06:51 Est GFR ( Amer) 69.8 ml/min 08/02/22 06:51 Est GFR (Non-Af Amer) 60.2 ml/min 08/02/22 06:51 BUN/Creatinine Ratio 27.9 (10-20) H 08/02/22 06:51 Glucose 161 mg/dl (70-99(Fasting)) H 08/02/22 06:51 POC Glucose 235 mg/dl (70-99) H 08/01/22 20:42 Estimat Average Glucose 151 mg/dl 07/31/22 08:37 Hemoglobin A1c 6.9 % (4.5-5.6) H 07/31/22 08:37 Calcium 8.4 mg/dl (8.5-10.1) L 08/02/22 06:51 Magnesium 1.6 mg/dl (1.7-2.4) L 08/01/22 23:20 Total Bilirubin 0.4 mg/dl (0.2-1.0) 08/01/22 23:20 AST 19 U/L (13-39) 08/01/22 23:20 ALT 7 U/L (7-52) 08/01/22 23:20 Alkaline Phosphatase 50 U/L (34-104) 08/01/22 23:20 Troponin I High Sens 28.8 pg/ml (0-20) H 08/02/22 06:51 Total Protein 5.3 gm/dl (6.0-8.3) L 08/01/22 23:20 Albumin 3.0 gm/dl (3.4-5.0) L 08/01/22 23:20 Globulin 2.3 gm/dl (2.5-4.0) L 08/01/22 23:20 Albumin/Globulin Ratio 1.3 (0.9-2) 08/01/22 23:20 25-OH Vitamin D Total 33.2 ng/ml (30-100) 08/01/22 05:37 Urine Color Yellow 07/31/22 02:53 Urine Appearance Clear (Clear) 07/31/22 02:53 Urine pH 6.5 (4.5-7.5) 07/31/22 02:53 Ur Specific [place] 1.022 (1.000-1.030) 07/31/22 02:53 Urine Protein 2+ (Negative) H 07/31/22 02:53 Urine Glucose (UA) Negative (Negative) 07/31/22 02:53 Urine Ketones Trace (Negative) H 07/31/22 02:53 Urine Blood Negative (Negative) 07/31/22 02:53 Urine Nitrite Negative (Negative) 07/31/22 02:53 Urine Bilirubin Negative (Negative) 07/31/22 02:53 Urine Urobilinogen Negative (Negative) 07/31/22 02:53 Ur Leukocyte Esterase Negative (Negative) 07/31/22 02:53 Urine WBC (Auto) 1-5 /hpf (0-5) 07/31/22 02:53 Urine RBC (Auto) 0-4 /hpf (0-4) 07/31/22 02:53 U Hyaline Cast (Auto) 5-10 /lpf (0-5) H 07/31/22 02:53 U Epithel Cells (Auto) 20-30 /lpf (0-5) H 07/31/22 02:53 Urine Bacteria (Auto) Negative (Negative) 07/31/22 02:53 SARS-CoV-2, RNA, NAAT NEGATIVE (NEGATIVE) 07/31/22 03:47 Blood Type O Positive 07/31/22 12:48 Blood Type Recheck O Positive 07/31/22 08:37 Antibody Screen NEGATIVE 07/31/22 12:48 Impressions Hip/Pelvis X-Ray 07/31/22 01:19 SINGLE VIEW PELVIS; 2 VIEWS RIGHT HIP CLINICAL HISTORY: Fall with right hip injury. FINDINGS: An AP view of the pelvis with AP and frog leg views of the right hip are obtained. No prior studies are available for comparison at the time of dictation. The skeletal structures are osteopenic. There is a comminuted intertrochanteric fracture of the right proximal femur with medial displacement of the lesser trochanter. Overlying soft tissue edema is noted. No additional acute fracture is seen involving the left hip or the bony pelvis. A left hip arthroplasty is in place. Mild arthritic change and joint space narrowing is noted in the right hip. Enthesophytes arise from the anterior superior iliac spines. Lumbosacral spondylosis is partially imaged. Numerous surgical clips project over the pelvis. Urological implants project over the perineum. There is no evidence of bowel obstruction. IMPRESSION: Intertrochanteric fracture of the right femur as above. Electronically signed by: Nolan Castellano M.D. 07/31/2022 8:15 AM Chest X-Ray 07/31/22 08:06 SINGLE VIEW CHEST CLINICAL HISTORY: Preoperative examination. Hip fracture. FINDINGS: An AP, portable, supine chest radiograph is obtained. No prior studies are available for comparison at the time of dictation. The examination is degraded by portable technique and patient rotation. The heart is mildly enlarged noting atherosclerotic calcification of the thoracic aorta. The pulmonary vasculature is not congested. Apparent right apical opacities likely represent superimposed shadow. No large pleural effusion or pneumothorax is seen. The skeletal structures are osteopenic. The bony thorax is grossly intact. Arthritic change is noted in the shoulders. Surgical clips are seen in the right chest wall. IMPRESSION: 1. Cardiomegaly without radiographic evidence of congestive failure. 2. Apparent right apical opacities likely represent superimposed shadows. Correlate clinically for evidence of a mild pneumonitis. ACT 112: Negative or not required by law. Electronically signed by: Nolan Castellano M.D. 07/31/2022 8:38 AM Hip X-Ray 07/31/22 12:30 FL hip RT 2-3V CLINICAL HISTORY: RT TROCH NAIL TECHNIQUE: 7 views were obtained with the C-arm in the OR with the above procedure. Total fluoroscopy time was 77.4 seconds. Comparison: None available at the time of this dictation. FINDINGS/IMPRESSION: Intraoperative images were obtained of right hip trochanteric nail placement. Degenerative changes are seen in the hip joint. Please correlate with intraoperative fluoroscopy and operative report. ACT 112: Negative or not required by law. Electronically signed by: Hussain Miller M.D. 07/31/2022 3:[address] 08/01/22 21:57 CT SCAN OF THE BRAIN WITHOUT IV CONTRAST CLINICAL HISTORY: Change in mental status. COMPARISON STUDY: No priors. TECHNIQUE: Unenhanced axial CT scan of the brain is performed from the vertex to the skull base. A dose lowering technique was utilized adhering to the principles of ALARA. CT DOSE: 614.27 mGy.cm FINDINGS: Brain parenchyma: There is age-related involutional change noting moderate subcortical and periventricular microangiopathic disease. There is no hemorrhage, mass effect, or evidence of acute territorial ischemia by CT criteria. 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 Black- white matter differentiation is preserved. No extra-axial fluid collection is seen. Ventricles, sulci, cisterns: Prominent secondary to involutional change. Intracranial vasculature: There is atherosclerotic calcification of the cavernous carotid and vertebral arteries. Calvarium: Unremarkable. Sinuses and mastoids: The visualized paranasal sinuses are clear. The mastoid air cells are well pneumatized. Orbits: The bony orbits are grossly intact. There are bilateral ocular lens i mplants. IMPRESSION: There is no hemorrhage, mass effect, or evidence of acute territorial ischemia by CT criteria. ACT 112: Negative or not required by law. Electronically signed by: Nolan Castellano M.D. 08/01/2022 10:27 PM
[2022-08-02] MEDS: ATORVASTATIN 40 MG TAB PO SCH (20:16)
[2022-08-02] MEDS: LATANOPROST 0.005% OP SOLN 2.5 ML BTL OP SCH (20:17)
[2022-08-03 07:28] LABS: Basophils # (auto) 0.03 K/uL (0-0.2); Basophils % (auto) 0.3 %; Eosinophils % (auto) 0.9 %; Hematocrit (blood only) 22.1 % (40.1-51.0); Hemoglobin 7.4 g/dl (14.0-18.0); Immature Granulocytes # (auto) 0.06 K/uL (0.00-0.02); Immature Granulocytes % (auto) 0.6 %; Lymphocytes # (auto) 1.06 K/uL (1.2-3.4); Mean Corpuscular Hemoglobin 31.6 pg (25.0-34.0); Mean Corpuscular Hgb Conc 33.5 g/dL (32.0-36.0); Mean Corpuscular Volume 94.4 fL (80.0-100.0); Mean Platelet Volume 9.8 fL (9.4-12.4); Monocytes # (auto) 1.22 K/uL (0.24-0.82); Monocytes % (auto) 11.5 %; Neutrophils # (auto) 8.17 K/uL (1.4-6.5); Neutrophils % (auto) 76.7 %; Platelet Count 151 K/uL (130-400); RDW Coefficient of Variation 12.9 % (11.5-14.5); Red Blood Count 2.34 M/uL (4.63-6.08); White Blood Count 10.64 K/ul (4.8-10.8)
[2022-08-03 07:46] LABS: BUN Creatinine Ratio 31.8 (10-20); Creatinine Clr Calc Pharmacy 68.7 ml/min; Est GFR (African American) 92.1 ml/min; Est GFR (Non-African American) 79.5 ml/min; Potassium 3.6 mmol/L (3.5-5.1)
[2022-08-03 07:51] LABS: Acanthocytes 1+; Poikilocytosis Present
[2022-08-03] MEDS: INSULIN ASPART PER UNIT SC SCH ×4 (08:56→20:59)
[2022-08-03] MEDS: hydroCHLOROthiazide 25 MG TAB PO SCH (09:18)
[2022-08-03] MEDS: ASCORBIC ACID 500 MG TAB PO SCH (09:19)
[2022-08-03] MEDS: VITAMIN B COMPLEX TAB PO SCH (09:19)
[2022-08-03] MEDS: CHOLECALCIFEROL 1,000 UNITS 25 MCG TAB PO SCH (09:19)
[2022-08-03] MEDS: NETARSUDIL MESYLATE 37 DROPS/2.5 ML BTL OP SCH (09:19)
[2022-08-03] MEDS: ASPIRIN 81 MG ECTAB PO SCH ×2 (09:19→20:49)
[2022-08-03] MEDS: CALCIUM CARBONATE 1250MG TAB PO SCH (09:19)
[2022-08-03] MEDS: LANTUS PER UNIT CHARGE SQ SCH ×2 (09:24→20:59)
--- NOTE | 2022-08-03 09:38 | Orthopedic Progress Note ---
Date of Service August 03, 2022 Assessment & Plan (1) Fracture of hip, right, closed: Plan: POD #3 s/p ORIF R hip, doing as well as expected. Acute anemia blood loss, Hgb is stable at 7.4 will continue to monitor. Resume diet. WBAT. OOB to chair. Continue pain control. DVT prophylaxis: TEDs 3 weeks, foot pumps while in hospital, ASA 81 mg BID for 6 weeks. Dressing changed 08/02/22. PT/OT. D/C planning. Continue care per primary service. Admission and Anticipated Discharge Date Admission Date: July 31, 2022 Subjective Feeling fatigued and right hip pain. Physical Exam Physical Exam: RLE: 1+ DP pulse, sensation to light touch intact distally. Wiggling toes. Calf soft and non-tender. Dressings clean, dry, and intact. Results & Data ([facility]) Vital Signs (Past 12 Hours) Vital Signs Temp Pulse Pulse Resp BP Pulse Ox O2 Del Method 08/03/22 07:53 37 C 77 18 137/58 L 93 Room Air 08/02/22 22:18 37.0 C 79 18 149/62 H 96 Room Air Laboratory Results 08/03/22 08/03/22 08/03/22 Range/Units 08:10 07:11 07:11 WBC 10.64 (4.8-10.8) K/ul RBC 2.34 L (4.63-6.08) M/uL Hgb 7.4 L (14.0-18.0) g/dl Hct 22.1 L (40.1-51.0) % MCV 94.4 (80.0-100.0) fL MCH 31.6 (25.0-34.0) pg MCHC 33.5 (32.0-36.0) g/dL RDW Std Deviation 44.0 (36.4-46.3) fL RDW Coeff of Shirley 12.9 (11.5-14.5) % Plt Count 151 (130-400) K/uL MPV 9.8 (9.4-12.4) fL Immature Gran % (Auto) 0.6 % Neut % (Auto) 76.7 % Lymph % (Auto) 10.0 % Curry % (Auto) 11.5 % Eos % (Auto) 0.9 % Baso % (Auto) 0.3 % Neut # (Auto) 8.17 H (1.4-6.5) K/uL Lymph # (Auto) 1.06 L (1.2-3.4) K/uL Curry # (Auto) 1.22 H (0.24-0.82) K/uL Eos # (Auto) 0.10 (0-0.50) K/uL Baso # (Auto) 0.03 (0-0.2) K/uL Immature Gran # (Auto) 0.06 H (0.00-0.02) K/uL Poikilocytosis Present Acanthocytes (Spur) 1+ Sodium 138 (136-145) mmol/L Potassium 3.6 (3.5-5.1) mmol/L Chloride 104 (98-107) mmol/L Carbon Dioxide 30 (21-32) mmol/L Anion Gap 4 (3-11) BUN 27 H (6-23) mg/dl Creatinine 0.85 (0.6-1.4) mg/dl Est Cr Clr Drug Dosing 68.7 ml/min Est GFR ( Amer) 92.1 ml/min Est GFR (Non-Af Amer) 79.5 ml/min BUN/Creatinine Ratio 31.8 H (10-20) Glucose 164 H (70-99(Fasting)) mg/dl POC Glucose 173 H (70-99) mg/dl Calcium 8.0 L (8.5-10.1) mg/dl 08/02/22 08/02/22 Range/Units 20:35 17:45 WBC (4.8-10.8) K/ul RBC (4.63-6.08) M/uL Hgb (14.0-18.0) g/dl Hct (40.1-51.0) % MCV (80.0-100.0) fL MCH (25.0-34.0) pg MCHC (32.0-36.0) g/dL RDW Std Deviation (36.4-46.3) fL RDW Coeff of Shirley (11.5-14.5) % Plt Count (130-400) K/uL MPV (9.4-12.4) fL Immature Gran % (Auto) % Neut % (Auto) % Lymph % (Auto) % Curry % (Auto) % Eos % (Auto) % Baso % (Auto) % Neut # (Auto) (1.4-6.5) K/uL Lymph # (Auto) (1.2-3.4) K/uL Curry # (Auto) (0.24-0.82) K/uL Eos # (Auto) (0-0.50) K/uL Baso # (Auto) (0-0.2) K/uL Immature Gran # (Auto) (0.00-0.02) K/uL Poikilocytosis Acanthocytes (Spur) Sodium (136-145) mmol/L Potassium (3.5-5.1) mmol/L Chloride (98-107) mmol/L Carbon Dioxide (21-32) mmol/L Anion Gap (3-11) BUN (6-23) mg/dl Creatinine (0.6-1.4) mg/dl Est Cr Clr Drug Dosing ml/min Est GFR ( Amer) ml/min Est GFR (Non-Af Amer) ml/min BUN/Creatinine Ratio (10-20) Glucose (70-99(Fasting)) mg/dl POC Glucose 201 H 214 H (70-99) mg/dl Calcium (8.5-10.1) mg/dl
[2022-08-03] MEDS: HYDROmorphone INJ 0.5 MG/0.5 ML SYR IV PRN (11:28)
--- NOTE | 2022-08-03 13:00 | Student Report ---
BERNIE Med Student Progress Note Date of Service Date of service: August 03, 2022 Subjective Subjective: Pt resting in bed. C/o some pain with movement of hip, states its tolerable. Denies fever, chills, LOPEZ, dizzy/lightheadedness, CP, SOB, N/V/D. Denies pain or burning with gan catheter in place and says that he has an implant from his prostate cancer that aided in his urination habits at home. ROS ROS: See above for pertinent positives & negatives. A total of 10 systems reviewed and were otherwise negative. Physical Exam Physical Exam: Vital Signs Temp 36.8 C 08/03/22 12:27 Pulse 84 08/03/22 12:27 Resp 18 08/03/22 12:27 BP 132/62 08/03/22 12:27 Pulse Ox 96 08/03/22 12:27 O2 Del Method 08/03/22 12:27 O2 Flow Rate 2 07/31/22 19:27 Intake & Output 08/02/22 08/03/22 08/03/22 18:59 06:59 18:59 Intake Total 750 / 750 200 / 200 Output Total 650 / 1550 900 / 1550 Balance 100 / -800 -900 / -800 200 / 200 Weight 88.4 kg Intake: IV 630 / 630 Sodium Chloride 0.9% 1000ML 1, 630 / 630 000 ml @ 75 mls/hr IV .[id number] [facility] Rx#:[id number] Oral 120 / 120 200 / 200 Output: Urine Amount (Catheter) 650 / 1550 900 / 1550 Gan/Indwelling 900 / 900 Straight 650 / 650 Other: Other Intake Source 0 Weight Measurement Method Built in [facility] Results Results: Short CBC 08/03/22 07:11 WBC 10.64 Hgb 7.4 L Hct 22.1 L Plt Count 151 BMP 08/03/22 07:11 Sodium 138 Potassium 3.6 Chloride 104 Carbon Dioxide 30 BUN 27 H Creatinine 0.85 Glucose 164 H Calcium 8.0 L Impressions Hip/Pelvis X-Ray 07/31/22 01:19 SINGLE VIEW PELVIS; 2 VIEWS RIGHT HIP CLINICAL HISTORY: Fall with right hip injury. FINDINGS: An AP view of the pelvis with AP and frog leg views of the right hip are obtained. No prior studies are available for comparison at the time of dictation. The skeletal structures are osteopenic. There is a comminuted intertrochanteric fracture of the right proximal femur with medial displacement of the lesser trochanter. Overlying soft tissue edema is noted. No additional acute fracture is seen involving the left hip or the bony pelvis. A left hip arthroplasty is in place. Mild arthritic change and joint space narrowing is noted in the right hip. Enthesophytes arise from the anterior superior iliac spines. Lumbosacral spondylosis is partially imaged. Numerous surgical clips project over the pelvis. Urological implants project over the perineum. There is no evidence of bowel obstruction. IMPRESSION: Intertrochanteric fracture of the right femur as above. Electronically signed by: Nolan Castellano M.D. 07/31/2022 8:15 AM Chest X-Ray 07/31/22 08:06 SINGLE VIEW CHEST CLINICAL HISTORY: Preoperative examination. Hip fracture. FINDINGS: An AP, portable, supine chest radiograph is obtained. No prior studies are available for comparison at the time of dictation. The examination is degraded by portable technique and patient rotation. The heart is mildly enlarged noting atherosclerotic calcification of the thoracic aorta. The pulmonary vasculature is not congested. Apparent right apical opacities likely represent superimposed shadow. No large pleural effusion or pneumothorax is seen. The skeletal structures are osteopenic. The bony thorax is grossly intact. Arthritic change is noted in the shoulders. Surgical clips are seen in the right chest wall. IMPRESSION: 1. Cardiomegaly without radiographic evidence of congestive failure. 2. Apparent right apical opacities likely represent superimposed shadows. Correlate clinically for evidence of a mild pneumonitis. ACT 112: Negative or not required by law. Electronically signed by: Nolan Castellano M.D. 07/31/2022 8:38 AM Hip X-Ray 07/31/22 12:30 FL hip RT 2-3V CLINICAL HISTORY: RT TROCH NAIL TECHNIQUE: 7 views were obtained with the C-arm in the OR with the above procedure. Total fluoroscopy time was 77.4 seconds. Comparison: None available at the time of this dictation. FINDINGS/IMPRESSION: Intraoperative images were obtained of right hip trochanteric nail placement. Degenerative changes are seen in the hip joint. Please correlate with intraoperative fluoroscopy and operative report. ACT 112: Negative or not required by law. Electronically signed by: Hussain Miller M.D. 07/31/2022 3:[address] 08/01/22 21:57 CT SCAN OF THE BRAIN WITHOUT IV CONTRAST CLINICAL HISTORY: Change in mental status. COMPARISON STUDY: No priors. TECHNIQUE: Unenhanced axial CT scan of the brain is performed from the vertex to the skull base. A dose lowering technique was utilized adhering to the principles of ALARA. CT DOSE: 614.27 mGy.cm FINDINGS: Brain parenchyma: There is age-related involutional change noting moderate subcortical and periventricular microangiopathic disease. There is no hemorrhage, mass effect, or evidence of acute territorial ischemia by CT criteria. 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 Black-white matter differentiation is preserved. No extra-axial fluid collection is seen. Ventricles, sulci, cisterns: Prominent secondary to involutional change. Intracranial vasculature: There is atherosclerotic calcification of the cavernous carotid and vertebral arteries. Calvarium: Unremarkable. Sinuses and mastoids: The visualized paranasal sinuses are clear. The mastoid air cells are well pneumatized. Orbits: The bony orbits are grossly intact. There are bilateral ocular lens implants. IMPRESSION: There is no hemorrhage, mass effect, or evidence of acute territorial ischemia by CT criteria. ACT 112: Negative or not required by law. Electronically signed by: Nolan Castellano M.D. 08/01/2022 10:27 PM A&P A&P: 1. Mechanical fall and closed intertrochanteric fracture of the right femur s/p right trochanteric nailing POD #3: 2. Acute blood loss anemia secondary to orthopedic surgery: EBL: 75mls. Pt with post-op acute blood loss anemia, Hbg 10.9 on admission, today 7.4. Episode of hypotension overnight 08/01, pt pale per nurse, 1L fluid bolus given. Pt currently asymptomatic, will continue to monitor, transfuse if <7 or symptomatic. Monitor daily CBC, update type and crossmatch if needed. Pt able to WBAT, resume diet. Continue with current pain control regimen. Pt taking calcium carbonate and cholecalciferol, continue inpatient. 08/01 Vit D level: 33.2. See below for DVT prophylaxis. Continue working with PT/OT, await recs for rehab planning after discharge. 3. Urinary retention: Pt with prostate ca history. Per patient, he has an implanted device to aid with urination. Urology has been consulted as pt recently moved to area and needs to establish care. Gan to remain inplace until urology sees patient and gives recs. 4. DM2: Holding linagliptin and metformin while inpatient. Last A1C this admission was 6.9. Blood glucose monitoring AC, HS, PRN. Continue insulin glargine 15 units BID. Continue SSI AC and HS. 5. HTN/HLD: Currently holding captopril d/t Continue HCTZ and atorvastatin daily. DVT prophylaxis: ASA 81mg BID x6 weeks, TEDs x3 weeks, SCDs while inpatient. Disposition: Continue with PT/OT, plan for discharge to rehab.
--- NOTE | 2022-08-03 16:24 | Hospitalist Progress Note ---
Date of Service August 03, 2022 Assessment & Plan (1) Fracture of hip, right, closed: (2) Fall: (3) Acute blood loss anemia: Plan: Presented from [facility] after mechanical fall and right hip pain. Hip x-ray shows intertrochanteric fracture of right femur. POD#3 s/p right trochanteric nailing by Dr. Reyez Activity and wound care orders as per ortho Pain control with bowel regimen PT/OT EBL 75cc Acute blood loss anemia Preop Hgb 11.2 --> 7.4 today No active signs of bleeding Transfuse if Hgb <7.0 Urinary retention Parker placed on 08/02 - will plan to keep in place for 3-4 days for bladder rest h/o penile implant with manual sphincter release per patient, consider urology eval HTN Due to intermittent hypotension on 08/01, captopril was placed on hold. BP stable, continue HCTZ DM type II Hgb A1c 6.9 Hold home agents and utilize Lantus and NovoLog per protocol while hospitalized History of prostate cancer S/p chemo DVT prophylaxis TEDs for 3 weeks, SCDs while in hospital, ASA 81 mg BID x 6 weeks as per ortho Dispo -will need rehab. CM following. Admission and Anticipated Discharge Date Admission Date: July 31, 2022 Supervising Physician Co-Signing Physician Notes Patient seen and examined independently. He is lying down on the bed without any discomfort. Parker was placed as patient required multiple straight catheterization. He has history of implanted external sphincter. Will obtain routine urology consultation. Plan is to do PT OT evaluation and possible discharge to rehab when placement is available. Subjective Follow-up for right hip fracture, s/p right trochanteric nailing. Patient seen and examined. Reports pain is well controlled. No chest pain or shortness of breath. Denies abdominal pain or nausea. Parker catheter placed yesterday due to urinary retention. Review of Systems Review of Systems: ROS per HPI, all other systems reviewed and negative Physical Exam Constitutional: WD/WN, vitals as above no acute distress Respiratory: normal respiratory effort, lungs clear to auscultation Cardiovascular: Rate/Rhythm: regular rate and regular rhythm Vessels: normal peripheral pulses Extremities: no edema Gastrointestinal (Abdomen): Percussion/Palpation: abdomen soft; abdomen nontender Musculoskeletal: S/p right hip surgery, dressing CDI, CSM checks intact RLE Skin: no rashes, warm and dry Neurologic: no focal motor deficits Psychiatric: A+Ox3, euthymic affect Results & Data Results & Data ([facility]) Vital Signs (Past 12 Hours) Vital Signs Temp Pulse Pulse Resp BP Pulse Ox O2 Del Method 08/03/22 15:14 36.7 C 76 16 135/66 99 Room Air 08/03/22 12:27 36.8 C 84 18 132/62 96 Room Air 08/03/22 12:10 Room Air 08/03/22 10:00 08/03/22 07:53 37 C 77 18 137/58 L 93 Room Air O2 Del Method 08/03/22 15:14 08/03/22 12:27 08/03/22 12:10 08/03/22 10:00 Room Air 08/03/22 07:53 Laboratory Results Short CBC 08/03/22 Range/Units 07:11 WBC 10.64 (4.8-10.8) K/ul Hgb 7.4 L (14.0-18.0) g/dl Hct 22.1 L (40.1-51.0) % Plt Count 151 (130-400) K/uL BMP 08/03/22 07:11 Sodium 138 Potassium 3.6 Chloride 104 Carbon Dioxide 30 BUN 27 H Creatinine 0.85 Glucose 164 H Calcium 8.0 L
[2022-08-03] MEDS: ATORVASTATIN 40 MG TAB PO SCH (20:49)
[2022-08-03] MEDS: LATANOPROST 0.005% OP SOLN 2.5 ML BTL OP SCH (20:49)
--- NOTE | 2022-08-03 22:07 | Urology Consultation ---
Date of Consultation August 03, 2022 Assessment & Plan (1) Acute urinary retention: (2) Status post implantation of artificial urinary sphincter: (3) History of implantation of penile prosthesis: (4) Fall: (5) Intertrochanteric fracture of right hip: (6) Fracture of hip, right, closed: (7) Legally blind: (8) History of prostate cancer: (9) Incontinence: Plan Patient with retention. Likely multifactorial with history of prostate cancer with IPP and AUS and replacement of each in the last 3 years. Patient deconditioned, bowel function issues, decreased mobility, and recovering from surgical intervention after trauma. Catheter placed yesterday after multiple straight cath. Per patient AUS was deflated each time, but unsure if mechanism was locked into deflated position with gan placement. Gan in place draining clear yellow urine. Labs reviewed. Cr 0.85. Reviewed imaging with xray of pelvis. 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 Vital stable with very mild hypertension. Pain controlled. Gan without pain or issues. No major leakage. AUS was engaged by myself and lock out mechanism was engaged. no bleeding after AUS engaged. No old blood or other issues. Urine clear. Will likely need catheter for 2-3 days. Await return of mobility, bowel function, and normalization of activity during recovery. Okay catheter once these issues improve. With catheter removal patient will have incontinence until AUS is reengaged. Patient instructed on AUS function and can unlock by engaging bulb and squeezing bulb completely. Mechanism should release. If patient uncomfortable or unable can arrange followup in Office to unlock. Patient complicated history and surgical history reviewed and summarized as above. AUS was checked after 5 mins of lockout and was still in deflated position. Would avoid excess manipulation. If issues or problems after catheter removal can arrange cystoscopy, otherwise patient can continue to follow with established urologist. History of Present Illness Attending Physician: Braulio Sawyer MD History of Present Illness Consult for urinary issues with incomplete emptying and possible retention. Required repeated straight cath which was difficult due to patient's implanted device. Patient had fall with fracture and underwent trochanter nail with orthopedics. Patient had mild to moderate discomfort in pelvis and groin going to back and side in waves. Resolved with cessation of straight cath and gan catheter placement. Has had catheter since yesterday. Patient states the AUS was deflated for the catheter placement but was unaware if it was locked out while deflated. Is dealing with acute deconditioning and undergoing recovery from trauma/fall. Has been deconditioned from this. Has decreased mobility significantly with acute issues. Patient has not had complete return to normal bowel function. Has had significant urinary and urologic issues in past. Had a Implant and AUS for many years and approx 3 years ago underwent replacement and revision with issues post exchange. Urinary issues typically are due to leakage and control. Has had the Functioning AUS since the exchange and has worked well. AUS pump on the right and IPP pump on left. Denies bleeding. No severe nausea or vomiting. Currently no fevers. Discussed with patient multifactorial nature of urinary issues, retention, and incomplete bladder emptying. Discussed concerns and issues. Discussed decreased mobility and trouble voiding. Discussed issues related to deco nditioning and weakened state. Discussed possibility that patient had more moderate to severe issues and with the acute illness and deconditioning these issues became more prevalent and obvious. Discussed bowel function and possible issues related to decrease in function and its relation to other pelvic organs and systems. Discussed different medications, will use during hospitalization and their effect on ability to empty. Due to the device potentially being inflated, patient was assessed. The AUS was found to be engaged and was subsequently deflated by myself with the lock out mechanism engaged after deflating the AUS. Allergies Allergy/AdvReac Type Severity Reaction Status Date / Time No Known Allergies Allergy Verified 07/31/22 00:36 Home Medications Medication Instructions Recorded Confirmed Type ascorbic acid (vitamin C) 500 mg 500 mg PO DAILY 07/31/22 07/31/22 History tablet (Vitamin C) atorvastatin 40 mg tablet 40 mg PO HS 07/31/22 07/31/22 History calcium carbonate 600 mg calcium 600 mg PO DAILY 07/31/22 07/31/22 History (1,500 mg) tablet (Calcium) captopril 50 mg tablet 50 mg PO BID 07/31/22 07/31/22 History cholecalciferol (vitamin D3) 25 25 mcg PO DAILY 07/31/22 07/31/22 History mcg (1,000 unit) capsule (Vitamin D3) hydrochlorothiazide 25 mg tablet 25 mg PO DAILY 07/31/22 07/31/22 History latanoprost 0.005 % eye drops 1 drp ophthalmic (eye) 07/31/22 07/31/22 History linagliptin 5 mg tablet (Tradjenta) 5 mg PO DAILY 07/31/22 07/31/22 History metformin 1,000 mg tablet 1,000 mg PO BID 07/31/22 07/31/22 History netarsudil 0.02 % eye drops 1 drp ophthalmic (eye) DAILY 07/31/22 07/31/22 History (Rhopressa) vitamin B complex 1 tab PO DAILY 07/31/22 07/31/22 History vitamin E 268 mg (400 unit) capsule 268 mg PO DAILY 07/31/22 07/31/22 History Patient History Medical History (Updated 08/03/22 @ 22:15 by Tor Llanos DO) Diabetes H/O breast disorder in male History of prostate cancer HTN (hypertension) Hyperlipidemia Surgical History (Updated 08/03/22 @ 22:15 by Tor Llanos DO) History of penile implant History of total left hip replacement Hx of appendectomy Social History Smoking Status: Never smoker Hx Alcohol Use: Yes Hx Substance Use: No Preferred Language: Israeli Communication Ability: Effective Bruise Trimmer Required: No Beliefs That Will Affect Care: None marital status: Current Living Situation: Spouse Other Information That Helps Us Care for You: No Feels Safe at Home: Yes Safety Concerns: Feels Safe At This Time Assistive Devices: Cane Review of Systems Review of Systems: All systems reviewed & are unremarkable except as noted in HPI & below Physical Exam Physical Exam: General: Alert and oriented x 3 in no acute distress. Resting comfortably HEENT: Normocephalic Atraumatic. Inspection normal. Cranial Nerves 2-12 Grossly intact. Nares are clear. Neck is supple. Normal inspection of face. Normal inspection of neck. Neurologic: No deficits on inspection. Baseline for motor function and sensory. Psychologic: Normal affect. Respiratory: Nonlabored. No use of accessory muscles. No tachypnea or dyspnea. Cardiovascular: No tachycardia Skin: [place] and Dry. No rashes or visible lesions. Extremities: Decreased mobility due to fracture/fall. Ice on LE Abdomen: Soft Non-distended. No rebound or guarding. : AUS and IPP present. Bulb to AUS on right. Mild prolapse of reservoir on r ight in inguinal region. Non tender. Results & Data ([facility]) Vital Signs (Past 12 Hours) Vital Signs Temp Pulse Pulse Resp BP Pulse Ox O2 Del Method 08/03/22 20:52 37.6 C H 85 18 125/59 L 95 Room Air 08/03/22 15:14 36.7 C 76 16 135/66 99 Room Air 08/03/22 12:27 36.8 C 84 18 132/62 96 Room Air 08/03/22 12:10 Room Air PG Care Time/CCT Total # of Minutes Spent Total Time Spent with Patient: Total time spent is greater than 50% in coordination of care (as documented) at patient's floor/unit and/or counseling patient: Coding Level of Care Code 58324 Inpt Consult Level 5 Diagnoses Acute urinary retention R33.8 Status post implantation of artificial urinary sphincter Z96.0 History of implantation of penile prosthesis Z96.89 Fall W19.XXXA Intertrochanteric fracture of right hip S72.144A Encounter type: initial encounter Fracture alignment: nondisplaced Fracture type: closed Fracture of hip, right, closed S72.001A Legally blind H54.8 History of prostate cancer Z85.46 Incontinence R32 (1) Intertrochanteric fracture of right hip Encounter type: initial encounter Fracture alignment: nondisplaced Fracture type: closed Qualified Code(s): S72.144A - Nondisplaced intertrochanteric fracture of right femur, initial encounter for closed fracture
[2022-08-04 08:29] LABS: Hematocrit (blood only) 21.2 % (40.1-51.0); Mean Corpuscular Hemoglobin 31.3 pg (25.0-34.0); Mean Corpuscular Volume 94.6 fL (80.0-100.0); Mean Platelet Volume 9.7 fL (9.4-12.4); Platelet Count 173 K/uL (130-400); RDW Coefficient of Variation 12.7 % (11.5-14.5); RDW Standard Deviation 43.9 fL (36.4-46.3); Red Blood Count 2.24 M/uL (4.63-6.08); White Blood Count 10.13 K/ul (4.8-10.8)
[2022-08-04 08:54] LABS: BUN Creatinine Ratio 38.4 (10-20); Calcium 8.2 mg/dl (8.5-10.1); Creatinine Clr Calc Pharmacy 68.6 ml/min; Est GFR (African American) 91.6 ml/min; Est GFR (Non-African American) 79.1 ml/min; Potassium 3.5 mmol/L (3.5-5.1)
[2022-08-04] MEDS: ASPIRIN 81 MG ECTAB PO SCH ×2 (09:10→20:28)
[2022-08-04] MEDS: VITAMIN B COMPLEX TAB PO SCH (09:11)
[2022-08-04] MEDS: ASCORBIC ACID 500 MG TAB PO SCH (09:11)
[2022-08-04] MEDS: NETARSUDIL MESYLATE 37 DROPS/2.5 ML BTL OP SCH (09:11)
[2022-08-04] MEDS: CHOLECALCIFEROL 1,000 UNITS 25 MCG TAB PO SCH (09:12)
[2022-08-04] MEDS: hydroCHLOROthiazide 25 MG TAB PO SCH (09:12)
[2022-08-04] MEDS: CALCIUM CARBONATE 1250MG TAB PO SCH (09:12)
[2022-08-04] MEDS: INSULIN ASPART PER UNIT SC SCH ×4 (09:18→22:31)
[2022-08-04] MEDS: LANTUS PER UNIT CHARGE SQ SCH ×2 (09:19→22:32)
--- NOTE | 2022-08-04 10:31 | Orthopedic Progress Note ---
Date of Service August 04, 2022 Assessment & Plan (1) Fracture of hip, right, closed: Plan: POD #4 s/p ORIF R hip, doing as well as expected. Acute anemia blood loss, Hgb dropped 7.4 to 7.0, hospitalist aware, pt will be receiving one unit of blood today. Resume diet. WBAT. OOB to chair. Continue pain control. DVT prophylaxis: TEDs 3 weeks, foot pumps while in hospital, ASA 81 mg BID for 6 weeks. Dressing changed 08/02/22. Remains intact. PT/OT. D/C planning. Continue care per primary service. Present on Admission?: Yes Admission and Anticipated Discharge Date Admission Date: July 31, 2022 Supervising Physician Co-Signing Physician Notes I, Dr. Reyez, saw and examined the patient and discussed the management with my PA. I reviewed my PAs note and agree with the documented findings and the plan of care I developed. Due to the acute anemia blood loss, dizziness, and fatigue, recommended he receive 2 units PRBCs. Subjective Pt was seen bedside this am. He is post op day #4 s/p right trochanteric nailing. He is alert and oriented x3. He states he has some right hip pain only if he moves the leg. He states while resting he has no pain. He states the pain seems to be controlled with the medication. He states he is not having any dizziness today like yesterday. He states he has a history of being dizzy. He states he feels tired. He denies any SOB or CP. He states he is eating okay. Denies any nausea or vomiting. He offers no concerns. Review of Systems Review of Systems: Please refer to H&P Physical Exam Physical Exam: General: Pt is alert and oriented x3 no acute distress appears pale Integumentary: Skin is normal in color and temperature. Dressing is intact neg for any drainage Musculoskeletal: RLE is neg for any edema: Dressing is in place. Pt tolerated ROM of the right hip and knee without increase in pain. Calf is soft and nontender. Able to DF and PF ankle. DP 2 Results & Data ([facility]) Vital Signs (Past 12 Hours) Vital Signs Temp Pulse Resp BP Pulse Ox O2 Del Method 08/04/22 09:23 74 148/57 H 91 Room Air 08/04/22 06:56 37.4 C 70 16 155/60 H 94 Room Air Laboratory Results Laboratory Results WBC 10.13 K/ul (4.8-10.8) 08/04/22 07:59 RBC 2.24 M/uL (4.63-6.08) L 08/04/22 07:59 Hgb 7.0 g/dl (14.0-18.0) L 08/04/22 07:59 Hct 21.2 % (40.1-51.0) L 08/04/22 07:59 MCV 94.6 fL (80.0-100.0) 08/04/22 07:59 MCH 31.3 pg (25.0-34.0) 08/04/22 07:59 MCHC 33.0 g/dL (32.0-36.0) 08/04/22 07:59 RDW Std Deviation 43.9 fL (36.4-46.3) 08/04/22 07:59 RDW Coeff of Shirley 12.7 % (11.5-14.5) 08/04/22 07:59 Plt Count 173 K/uL (130-400) 08/04/22 07:59 MPV 9.7 fL (9.4-12.4) 08/04/22 07:59 Immature Gran % (Auto) 0.6 % 08/03/22 07:11 Neut % (Auto) 76.7 % 08/03/22 07:11 Lymph % (Auto) 10.0 % 08/03/22 07:11 [place] % (Auto) 11.5 % 08/03/22 07:11 Eos % (Auto) 0.9 % 08/03/22 07:11 Baso % (Auto) 0.3 % 08/03/22 07:11 Neut # (Auto) 8.17 K/uL (1.4-6.5) H 08/03/22 07:11 Lymph # (Auto) 1.06 K/uL (1.2-3.4) L 08/03/22 07:11 [place] # (Auto) 1.22 K/uL (0.24-0.82) H 08/03/22 07:11 Eos # (Auto) 0.10 K/uL (0-0.50) 08/03/22 07:11 Baso # (Auto) 0.03 K/uL (0-0.2) 08/03/22 07:11 Immature Gran # (Auto) 0.06 K/uL (0.00-0.02) H 08/03/22 07:11 Poikilocytosis Present 08/03/22 07:11 Acanthocytes (Spur) 1+ 08/03/22 07:11 PT 11.4 Seconds (9.0-12.0) 07/31/22 01:33 INR 1.1 (0.9-1.1) 07/31/22 01:33 APTT 24.8 Seconds (21.0-31.0) 07/31/22 01:33 PTT Ratio 0.9 07/31/22 01:33 ABG pH 7.49 (7.35-7.45) H 08/01/22 23:20 ABG pCO2 41 mmHg (35-46) 08/01/22 23:20 ABG pO2 78 mmHg (80-95) L 08/01/22 23:20 ABG HCO3 31 mmol/L (19-24) H 08/01/22 23:20 ABG O2 Saturation 98.1 % (90-95) H 08/01/22 23:20 ABG Base Excess 7.2 mEq/L (-9-1.8) H 08/01/22 23:20 Amadeo Test Pos (Pos) 08/01/22 23:20 Oxygen Given ROOM AIR 08/01/22 23:20 Sodium 139 mmol/L (136-145) 08/04/22 07:59 Potassium 3.5 mmol/L (3.5-5.1) 08/04/22 07:59 Chloride 104 mmol/L (98-107) 08/04/22 07:59 Carbon Dioxide 31 mmol/L (21-32) 08/04/22 07:59 Anion Gap 4 (3-11) 08/04/22 07:59 BUN 33 mg/dl (6-23) H 08/04/22 07:59 Creatinine 0.86 mg/dl (0.6-1.4) 08/04/22 07:59 Est Cr Clr Drug Dosing 68.6 ml/min 08/04/22 07:59 Est GFR ( Amer) 91.6 ml/min 08/04/22 07:59 Est GFR (Non-Af Amer) 79.1 ml/min 08/04/22 07:59 BUN/Creatinine Ratio 38.4 (10-20) H 08/04/22 07:59 Glucose 142 mg/dl (70-99(Fasting)) H 08/04/22 07:59 POC Glucose 180 mg/dl (70-99) H 08/04/22 12:25 Estimat Average Glucose 151 mg/dl 07/31/22 08:37 Hemoglobin A1c 6.9 % (4.5-5.6) H 07/31/22 08:37 Calcium 8.2 mg/dl (8.5-10.1) L 08/04/22 07:59 Magnesium 1.6 mg/dl (1.7-2.4) L 08/01/22 23:20 Total Bilirubin 0.4 mg/dl (0.2-1.0) 08/01/22 23:20 AST 19 U/L (13-39) 08/01/22 23:20 ALT 7 U/L (7-52) 08/01/22 23:20 Alkaline Phosphatase 50 U/L (34-104) 08/01/22 23:20 Troponin I High Sens 28.8 pg/ml (0-20) H 08/02/22 06:51 Total Protein 5.3 gm/dl (6.0-8.3) L 08/01/22 23:20 Albumin 3.0 gm/dl (3.4-5.0) L 08/01/22 23:20 Globulin 2.3 gm/dl (2.5-4.0) L 08/01/22 23:20 Albumin/Globulin Ratio 1.3 (0.9-2) 08/01/22 23:20 25-OH Vitamin D Total 33.2 ng/ml (30-100) 08/01/22 05:37 Urine Color Yellow 07/31/22 02:53 Urine Appearance Clear (Clear) 07/31/22 02:53 Urine pH 6.5 (4.5-7.5) 07/31/22 02:53 Ur Specific Marcy 1.022 (1.000-1.030) 07/31/22 02:53 Urine Protein 2+ (Negative) H 07/31/22 02:53 Urine Glucose (UA) Negative (Negative) 07/31/22 02:53 Urine Ketones Trace (Negative) H 07/31/22 02:53 Urine Blood Negative (Negative) 07/31/22 02:53 Urine Nitrite Negative (Negative) 07/31/22 02:53 Urine Bilirubin Negative (Negative) 07/31/22 02:53 Urine Urobilinogen Negative (Negative) 07/31/22 02:53 Ur Leukocyte Esterase Negative (Negative) 07/31/22 02:53 Urine WBC (Auto) 1-5 /hpf (0-5) 07/31/22 02:53 Urine RBC (Auto) 0-4 /hpf (0-4) 07/31/22 02:53 U Hyaline Cast (Auto) 5-10 /lpf (0-5) H 07/31/22 02:53 U Epithel Cells (Auto) 20-30 /lpf (0-5) H 07/31/22 02:53 Urine Bacteria (Auto) Negative (Negative) 07/31/22 02:53 SARS-CoV-2, RNA, NAAT NEGATIVE (NEGATIVE) 07/31/22 03:47 Blood Type O Positive 08/04/22 11:21 Blood Type Recheck O Positive 07/31/22 08:37 Antibody Screen NEGATIVE 08/04/22 11:21 Crossmatch See Detail 08/04/22 11:21
[2022-08-04] MEDS ORDERED: SODIUM CHLORIDE 0.9% 250 ML IV PRN (10:50)
--- NOTE | 2022-08-04 16:24 | Hospitalist Progress Note ---
Date of Service August 04, 2022 Assessment & Plan (1) Fracture of hip, right, closed: (2) Fall: (3) Acute blood loss anemia: Plan: Presented from [facility] assisted living after mechanical fall and right hip pain. Hip x-ray shows intertrochanteric fracture of right femur. POD#4 s/p right trochanteric nailing by Dr. Reyez Activity and wound care orders as per ortho Pain control with bowel regimen PT/OT EBL 75cc Acute blood loss anemia Preop Hgb 11.2 --> 7.4 --> 7.0 today No active signs of bleeding Transfused 2 unit PRBC today Follow CBC Left Hip Pain Patient reporting increased left hip pain while working with therapy today. Seems to be tender over left SI joint. Check left hip XR. Urinary retention Parker placed on 08/02 - will plan to keep in place for 3-4 days for bladder rest h/o penile implant with manual sphincter release per patient urology consulted, input appreciated, patient will need outpatient follow-up with urology HTN Due to intermittent hypotension on 08/01, captopril was placed on hold. 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 CM following. Admission and Anticipated Discharge Date Admission Date: July 31, 2022 Supervising Physician Co-Signing Physician Notes Pt was seen and examined. Agreed with Saundra FREDERICK exam, assessment and plan. s/p day #4 right trochanteric nailing by Dr. Reyez. No postop complication. Continue incentive spirometry. Continue PT/OT eval. Fall precaution. Waiting for placement to rehab. MD Rober Subjective Follow-up for right hip fracture, s/p right trochanteric nailing. Patient seen and examined. While working with therapy, patient reports increased left hip pain. Right hip pain seems to be well controlled. Patient reports feeling generally weak. No lightheadedness or dizziness. Denies chest pain or shortness of breath. No abdominal pain or nausea. Parker in place, draining cleae yellow urine. Review of Systems Review of Systems: ROS per HPI, all other systems reviewed and negative Physical Exam Constitutional: WD/WN, vitals as above no acute distress Respiratory: normal respiratory effort, lungs clear to auscultation Cardiovascular: Rate/Rhythm: regular rate and regular rhythm Vessels: normal peripheral pulses Extremities: no edema Gastrointestinal (Abdomen): Percussion/Palpation: abdomen soft; abdomen nontender Musculoskeletal: S/p right hip surgery, dressing CDI, CSM checks intact to RLE; tender over left SI joint Skin: no rashes, warm and dry Neurologic: no focal motor deficits Psychiatric: A+Ox3, euthymic affect Genitourinary: Parker in place Results & Data Results & Data ([facility]) Vital Signs (Past 12 Hours) Vital Signs Temp Pulse Pulse Resp BP BP Pulse Ox 08/04/22 16:13 37.1 C 64 18 151/56 H 95 08/04/22 14:45 37.5 C 75 18 149/58 H 97 08/04/22 15:50 37.3 C 69 18 151/64 H 94 08/04/22 14:00 37.4 C 75 18 158/54 H 98 08/04/22 13:29 37.1 C 69 18 153/56 H 97 08/04/22 13:29 37.1 C 69 18 153/56 H 97 08/04/22 13:00 37.3 C 73 16 151/62 H 96 08/04/22 12:46 37 C 70 16 147/61 H 94 08/04/22 07:55 08/04/22 09:23 74 148/57 H 91 08/04/22 06:56 37.4 C 70 16 155/60 H 94 O2 Del Method 08/04/22 16:13 08/04/22 14:45 08/04/22 15:50 08/04/22 14:00 08/04/22 13:29 08/04/22 13:29 Room Air 08/04/22 13:00 08/04/22 12:46 08/04/22 07:55 Room Air 08/04/22 09:23 Room Air 08/04/22 06:56 Room Air Laboratory Results Short CBC 08/04/22 Range/Units 07:59 WBC 10.13 (4.8-10.8) K/ul Hgb 7.0 L (14.0-18.0) g/dl Hct 21.2 L (40.1-51.0) % Plt Count 173 (130-400) K/uL BMP 08/04/22 07:59 Sodium 139 Potassium 3.5 Chloride 104 Carbon Dioxide 31 BUN 33 H Creatinine 0.86 Glucose 142 H Calcium 8.2 L
--- NOTE | 2022-08-04 18:15 | XRay Report ---
XR hip LT min 2V CLINICAL HISTORY: Left hip pain. COMPARISON: Pelvis radiograph July 31, 2022. FINDINGS: Alignment of the left hip arthroplasty is anatomic. No periprosthetic fracture or lucency. Pelvic surgical clips are noted. No acute fracture within visualized portions of the left hemipelvis is noted. IMPRESSION: Intact left hip arthroplasty. No periprosthetic fracture or lucency. ACT 112: Negative or not required by law. Electronically signed by: Melvin Prakash M.D. 08/04/2022 6:14 PM
[2022-08-04] MEDS: ATORVASTATIN 40 MG TAB PO SCH (20:27)
[2022-08-04] MEDS: LATANOPROST 0.005% OP SOLN 2.5 ML BTL OP SCH (20:28)
[2022-08-05 07:08] LABS: Hemoglobin 8.9 g/dl (14.0-18.0); Mean Corpuscular Hemoglobin 30.6 pg (25.0-34.0); Mean Corpuscular Hgb Conc 34.2 g/dL (32.0-36.0); Mean Corpuscular Volume 89.3 fL (80.0-100.0); Mean Platelet Volume 9.4 fL (9.4-12.4); Platelet Count 185 K/uL (130-400); RDW Coefficient of Variation 13.7 % (11.5-14.5); RDW Standard Deviation 45.1 fL (36.4-46.3); Red Blood Count 2.91 M/uL (4.63-6.08); White Blood Count 9.94 K/ul (4.8-10.8)
[2022-08-05] MEDS: CALCIUM CARBONATE 1250MG TAB PO SCH (07:50)
[2022-08-05] MEDS: ASCORBIC ACID 500 MG TAB PO SCH (07:50)
[2022-08-05] MEDS: ASPIRIN 81 MG ECTAB PO SCH ×2 (07:50→22:30)
[2022-08-05] MEDS: CHOLECALCIFEROL 1,000 UNITS 25 MCG TAB PO SCH (07:50)
[2022-08-05] MEDS: VITAMIN B COMPLEX TAB PO SCH (07:50)
[2022-08-05] MEDS: hydroCHLOROthiazide 25 MG TAB PO SCH (07:51)
[2022-08-05] MEDS: NETARSUDIL MESYLATE 37 DROPS/2.5 ML BTL OP SCH (07:52)
[2022-08-05] MEDS: INSULIN ASPART PER UNIT SC SCH ×4 (08:41→22:27)
[2022-08-05] MEDS: LANTUS PER UNIT CHARGE SQ SCH ×2 (09:30→22:27)
--- NOTE | 2022-08-05 09:48 | Orthopedic Progress Note ---
Date of Service August 05, 2022 Assessment & Plan (1) Fracture of hip, right, closed: Plan: POD #5 s/p ORIF R hip, doing as well as expected. Acute anemia blood loss, Hgb increased to 8.9 after transfusion. Resume diet. WBAT. OOB to chair. Continue pain control. DVT prophylaxis: TEDs 3 weeks, foot pumps while in hospital, ASA 81 mg BID for 6 weeks. Dressing changed 08/02/22. Remains intact. PT/OT. D/C planning. Continue care per primary service. Admission and Anticipated Discharge Date Admission Date: July 31, 2022 Subjective Feeling better, still weak and having difficulty moving RLE. Physical Exam Physical Exam: RLE: 1+ DP pulse, sensation to light touch intact distally. Wiggling toes. Calf soft and non-tender. Dressings clean, dry, and intact. Results & Data ([facility]) Vital Signs (Past 12 Hours) Vital Signs Temp Pulse Resp BP BP Pulse Ox O2 Del Method 08/05/22 09:40 36.7 C 69 18 136/58 L 96 Room Air 08/05/22 07:55 37.3 C 61 18 135/59 L 91 Room Air Laboratory Results 08/05/22 08/05/22 08/04/22 Range/Units 08:04 06:34 20:37 WBC 9.94 (4.8-10.8) K/ul RBC 2.91 L (4.63-6.08) M/uL Hgb 8.9 L (14.0-18.0) g/dl Hct 26.0 L (40.1-51.0) % MCV 89.3 D (80.0-100.0) fL MCH 30.6 (25.0-34.0) pg MCHC 34.2 (32.0-36.0) g/dL RDW Std Deviation 45.1 (36.4-46.3) fL RDW Coeff of Shirley 13.7 (11.5-14.5) % Plt Count 185 (130-400) K/uL MPV 9.4 (9.4-12.4) fL POC Glucose 100 H 210 H (70-99) mg/dl Blood Type Antibody Screen Crossmatch 08/04/22 08/04/22 08/04/22 Range/Units 17:17 12:25 11:21 WBC (4.8-10.8) K/ul RBC (4.63-6.08) M/uL Hgb (14.0-18.0) g/dl Hct (40.1-51.0) % MCV (80.0-100.0) fL MCH (25.0-34.0) pg MCHC (32.0-36.0) g/dL RDW Std Deviation (36.4-46.3) fL RDW Coeff of Shirley (11.5-14.5) % Plt Count (130-400) K/uL MPV (9.4-12.4) fL POC Glucose 139 H 180 H (70-99) mg/dl Blood Type O Positive Antibody Screen NEGATIVE Crossmatch See Detail
[2022-08-05] MEDS: oxyCODONE HCL IR 5 MG TAB (IMMEDIATE RELEASE) PO PRN ×2 (12:02→22:29)
[2022-08-05] MEDS: LATANOPROST 0.005% OP SOLN 2.5 ML BTL OP SCH (22:31)
[2022-08-05] MEDS: ATORVASTATIN 40 MG TAB PO SCH (22:31)
--- NOTE | 2022-08-05 22:42 | Hospitalist Progress Note ---
Date of Service August 05, 2022 Assessment & Plan (1) Fracture of hip, right, closed: (2) Fall: (3) Acute blood loss anemia: Plan: Presented from [facility] assisted living after mechanical fall and right hip pain. Hip x-ray shows intertrochanteric fracture of right femur. POD#5 s/p right trochanteric nailing by Dr. Reyez No postop complication Hgb stable PT/OT eval Continue incentive spiromtry Activity and wound care orders as per ortho Pain control with bowel regimen Continue Weight bearing as tolerated Fall precaution Acute blood loss anemia Preop Hgb 11.2 then dropped 7.0 on 09/03 No active signs of bleeding S/P 2 unit PRBC transfusions yesterday Hgb 8.9 today Continue monitor H/H Left Hip Pain Patient reporting increased left hip pain while working with therapy today. Seems to be tender over left SI joint. Left hip XR showed intact left hip arthroplasty. No periprosthetic fracture or lucency. stable Urinary retention Parker placed on 08/02 - will plan to keep in place for 3-4 days for bladder rest h/o penile implant with manual sphincter release per patient urology consulted, input appreciated, patient will need outpatient follow-up with urology HTN Due to intermittent hypotension on 08/01, captopril was placed on hold. 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 CM following. Admission and Anticipated Discharge Date Admission Date: July 31, 2022 Subjective Pt was seen and examined for postop follow up Lying in bed with no distress with at bedside Pt said that he feels ok He said that his pain control denies any chest pain, palpitation, dizziness and SOB Review of Systems Review of Systems: All systems reviewed & are unremarkable except as noted in Subjective Physical Exam Physical Exam: General- No acute distress Head- atraumatic Eyes- PERRL, EOMI, ENT- oropharynx clear Neck- supple, no JVD Lungs- clear to auscultation Heart- regular rhythm; no murmur Abdomen- normal bowel sounds, soft, nontender Extremities- no calf tenderness Neuro- alert, oriented x 3; PERRL, EOMI; no facial palsy; no dysarthria Skin- warm & dry Results & Data Results & Data ([facility]) Vital Signs (Past 12 Hours) Vital Signs Temp Pulse Resp BP Pulse Ox O2 Del Method 08/05/22 20:50 37 C 65 18 126/54 L 97 Room Air 08/05/22 14:50 37 C 72 16 149/60 H 96 Room Air
--- NOTE | 2022-08-06 07:39 | Orthopedic Progress Note ---
Date of Service August 06, 2022 Assessment & Plan (1) Fracture of hip, right, closed: Plan: POD #6 s/p ORIF R hip, doing as well as expected. Acute anemia blood loss, Hgb stable after transfusion. Resume diet. WBAT. OOB to chair. Continue pain control. DVT prophylaxis: TEDs 3 weeks, foot pumps while in hospital, ASA 81 mg BID for 6 weeks. Dressing changed 08/02/22. Distal aspect of dressing will be changed later today. PT/OT. D/C planning. Continue care per primary service. Follow-up in Dr. Reyez's office in 2 weeks. Call [phone] for appointment. Admission and Anticipated Discharge Date Admission Date: July 31, 2022 Subjective Still feeling weak Physical Exam Physical Exam: RLE: 1+ DP pulse, sensation to light touch intact distally. Wiggling toes. Calf soft and non-tender. Proximal dressings clean, dry, and intact. Distal dressings clean and intact with a small jos size blood stain. Results & Data ([facility]) Vital Signs (Past 12 Hours) Vital Signs Temp Pulse Resp BP Pulse Ox O2 Del Method 08/06/22 06:55 37 C 62 20 123/60 97 Room Air 08/05/22 21:00 Room Air 08/05/22 20:50 37 C 65 18 126/54 L 97 Room Air Laboratory Results 08/05/22 08/05/22 08/05/22 Range/Units 20:45 17:38 11:57 POC Glucose 198 H 132 H 156 H (70-99) mg/dl 08/05/22 Range/Units 08:04 POC Glucose 100 H (70-99) mg/dl
[2022-08-06 08:21] LABS: Hematocrit (blood only) 26.6 % (40.1-51.0); Hemoglobin 8.9 g/dl (14.0-18.0); Mean Corpuscular Hemoglobin 30.2 pg (25.0-34.0); Mean Corpuscular Hgb Conc 33.5 g/dL (32.0-36.0); Mean Corpuscular Volume 90.2 fL (80.0-100.0); Mean Platelet Volume 9.5 fL (9.4-12.4); Platelet Count 223 K/uL (130-400); RDW Coefficient of Variation 13.8 % (11.5-14.5); RDW Standard Deviation 45.6 fL (36.4-46.3); Red Blood Count 2.95 M/uL (4.63-6.08); White Blood Count 9.03 K/ul (4.8-10.8)
[2022-08-06] MEDS: CALCIUM CARBONATE 1250MG TAB PO SCH (08:56)
[2022-08-06] MEDS: CHOLECALCIFEROL 1,000 UNITS 25 MCG TAB PO SCH (08:56)
[2022-08-06] MEDS: hydroCHLOROthiazide 25 MG TAB PO SCH (08:56)
[2022-08-06] MEDS: VITAMIN B COMPLEX TAB PO SCH (08:56)
[2022-08-06] MEDS: ASPIRIN 81 MG ECTAB PO SCH (08:56)
[2022-08-06] MEDS: ASCORBIC ACID 500 MG TAB PO SCH (08:56)
[2022-08-06] MEDS: NETARSUDIL MESYLATE 37 DROPS/2.5 ML BTL OP SCH (08:57)
[2022-08-06] MEDS: LANTUS PER UNIT CHARGE SQ SCH (09:02)
[2022-08-06] MEDS: INSULIN ASPART PER UNIT SC SCH ×2 (09:02→13:20)
[2022-08-06] MEDS: oxyCODONE HCL IR 5 MG TAB (IMMEDIATE RELEASE) PO PRN ×2 (10:05→15:36)
--- NOTE | 2022-08-06 13:05 | Discharge Summary ---
Date of Service August 06, 2022 Admission HPI Per Admitting Provider CHIEF COMPLAINT: Status post fall, right hip fracture. HISTORY OF PRESENT ILLNESS: This is an 87-year-old male with past medical history significant for type 2 diabetes, hyperlipidemia, hypertension, history of severe nonproliferative diabetic retinopathy and legally blind, history of prostate cancer in his 30s, and history of breast cancer in his 40s, status post chemotherapy, currently lives in [facility] in a duplex apartment with his , ambulates with a cane. Today he was trying to move a table into the garage with help of his [id number], there is a stepdown to his garage, which he slipped and fell on his right side. He did not hit his head, no loss of consciousness and when trying to move he had severe pain in the right hip and he was brought in here and found to have right hip fracture. Currently, resting comfortably and hemodynamically stable. Since he is legally blind and he is not ambulating much. Denies any headache. Has some runny nose, dry throat. No cough, no fever, no difficulty swallowing. No chest pain, no shortness of breath, no nausea, no abdominal pain. Normal bowel and bladder movements. Admission Exam Per Admitting Provider GENERAL: The patient is of moderate build, not in acute distress. VITAL SIGNS: Temperature 36.5, pulse 86, respiratory rate 18, blood pressure 145/65, oxygen 92% on room air. HEENT: Atraumatic. Legally blind. Oral mucosa moist. NECK: No JVD, no neck masses. CARDIOVASCULAR: S1 and S2 heard. Regular rate and rhythm. No murmur, no gallop. RESPIRATORY SYSTEM: Normal AP diameter. No accessory muscle use. No wheezing, no crackles. ABDOMEN: Soft, bowel sounds present, nontender, no distention. CENTRAL NERVOUS SYSTEM: Alert and oriented. Legally blind. Insight is okay. Obeys simple commands. EXTREMITIES: Right lower extremity is shortened. No edema, no erythema seen. Principal Diagnosis Fracture of hip, right, closed: Fall: Acute blood loss anemia: Left Hip Pain Urinary retention Hypertension DM type II History of prostate cancer Discharge Exam General- No acute distress Head- atraumatic Eyes- PERRL, EOMI, ENT- oropharynx clear Neck- supple, no JVD Lungs- clear to auscultation Heart- regular rhythm; no murmur Abdomen- normal bowel sounds, soft, nontender Extremities- no calf tenderness Neuro- alert, oriented x 3; PERRL, EOMI; no facial palsy; no dysarthria Skin- warm & dry Discharge Data Allergies Allergy/AdvReac Type Severity Reaction Status Date / Time No Known Allergies Allergy Verified 07/31/22 00:36 Consultations 07/31/22 03:38 ED Decision to Admit Stat 07/31/22 08:00 Consult Orthopedic Surgery Routine 08/03/22 16:43 Consult Urology Routine Procedures Performed Operation Date: 07/31/22 09:40 Actual Procedures p Right Troch Nail(Right) - Landon Nabila Reyez MD Ordered Studies 07/31/22 12:30 FL hip RT 2-3V Routine 08/01/22 21:57 CT head/brain wo con Stat Laboratory Results WBC 9.03 K/ul (4.8-10.8) 08/06/22 07:45 RBC 2.95 M/uL (4.63-6.08) L 08/06/22 07:45 Hgb 8.9 g/dl (14.0-18.0) L 08/06/22 07:45 Hct 26.6 % (40.1-51.0) L 08/06/22 07:45 MCV 90.2 fL (80.0-100.0) 08/06/22 07:45 MCH 30.2 pg (25.0-34.0) 08/06/22 07:45 MCHC 33.5 g/dL (32.0-36.0) 08/06/22 07:45 RDW Std Deviation 45.6 fL (36.4-46.3) 08/06/22 07:45 RDW Coeff of Shirley 13.8 % (11.5-14.5) 08/06/22 07:45 Plt Count 223 K/uL (130-400) 08/06/22 07:45 MPV 9.5 fL (9.4-12.4) 08/06/22 07:45 Immature Gran % (Auto) 0.6 % 08/03/22 07:11 Neut % (Auto) 76.7 % 08/03/22 07:11 Lymph % (Auto) 10.0 % 08/03/22 07:11 [place] % (Auto) 11.5 % 08/03/22 07:11 Eos % (Auto) 0.9 % 08/03/22 07:11 Baso % (Auto) 0.3 % 08/03/22 07:11 Neut # (Auto) 8.17 K/uL (1.4-6.5) H 08/03/22 07:11 Lymph # (Auto) 1.06 K/uL (1.2-3.4) L 08/03/22 07:11 [place] # (Auto) 1.22 K/uL (0.24-0.82) H 08/03/22 07:11 Eos # (Auto) 0.10 K/uL (0-0.50) 08/03/22 07:11 Baso # (Auto) 0.03 K/uL (0-0.2) 08/03/22 07:11 Immature Gran # (Auto) 0.06 K/uL (0.00-0.02) H 08/03/22 07:11 Poikilocytosis Present 08/03/22 07:11 Acanthocytes (Spur) 1+ 08/03/22 07:11 PT 11.4 Seconds (9.0-12.0) 07/31/22 01:33 INR 1.1 (0.9-1.1) 07/31/22 01:33 APTT 24.8 Seconds (21.0-31.0) 07/31/22 01:33 PTT Ratio 0.9 07/31/22 01:33 ABG pH 7.49 (7.35-7.45) H 08/01/22 23:20 ABG pCO2 41 mmHg (35-46) 08/01/22 23:20 ABG pO2 78 mmHg (80-95) L 08/01/22 23:20 ABG HCO3 31 mmol/L (19-24) H 08/01/22 23:20 ABG O2 Saturation 98.1 % (90-95) H 08/01/22 23:20 ABG Base Excess 7.2 mEq/L (-9-1.8) H 08/01/22 23:20 Amadeo Test Pos (Pos) 08/01/22 23:20 Oxygen Given ROOM AIR 08/01/22 23:20 Sodium 139 mmol/L (136-145) 08/04/22 07:59 Potassium 3.5 mmol/L (3.5-5.1) 08/04/22 07:59 Chloride 104 mmol/L (98-107) 08/04/22 07:59 Carbon Dioxide 31 mmol/L (21-32) 08/04/22 07:59 Anion Gap 4 (3-11) 08/04/22 07:59 BUN 33 mg/dl (6-23) H 08/04/22 07:59 Creatinine 0.86 mg/dl (0.6-1.4) 08/04/22 07:59 Est Cr Clr Drug Dosing 68.6 ml/min 08/04/22 07:59 Est GFR ( Amer) 91.6 ml/min 08/04/22 07:59 Est GFR (Non-Af Amer) 79.1 ml/min 08/04/22 07:59 BUN/Creatinine Ratio 38.4 (10-20) H 08/04/22 07:59 Glucose 142 mg/dl (70-99(Fasting)) H 08/04/22 07:59 POC Glucose 188 mg/dl (70-99) H 08/06/22 12:10 Estimat Average Glucose 151 mg/dl 07/31/22 08:37 Hemoglobin A1c 6.9 % (4.5-5.6) H 07/31/22 08:37 Calcium 8.2 mg/dl (8.5-10.1) L 08/04/22 07:59 Magnesium 1.6 mg/dl (1.7-2.4) L 08/01/22 23:20 Total Bilirubin 0.4 mg/dl (0.2-1.0) 08/01/22 23:20 AST 19 U/L (13-39) 08/01/22 23:20 ALT 7 U/L (7-52) 08/01/22 23:20 Alkaline Phosphatase 50 U/L (34-104) 08/01/22 23:20 Troponin I High Sens 28.8 pg/ml (0-20) H 08/02/22 06:51 Total Protein 5.3 gm/dl (6.0-8.3) L 08/01/22 23:20 Albumin 3.0 gm/dl (3.4-5.0) L 08/01/22 23:20 Globulin 2.3 gm/dl (2.5-4.0) L 08/01/22 23:20 Albumin/Globulin Ratio 1.3 (0.9-2) 08/01/22 23:20 25-OH Vitamin D Total 33.2 ng/ml (30-100) 08/01/22 05:37 Urine Color Yellow 07/31/22 02:53 Urine Appearance Clear (Clear) 07/31/22 02:53 Urine pH 6.5 (4.5-7.5) 07/31/22 02:53 Ur Specific [place] 1.022 (1.000-1.030) 07/31/22 02:53 Urine Protein 2+ (Negative) H 07/31/22 02:53 Urine Glucose (UA) Negative (Negative) 07/31/22 02:53 Urine Ketones Trace (Negative) H 07/31/22 02:53 Urine Blood Negative (Negative) 07/31/22 02:53 Urine Nitrite Negative (Negative) 07/31/22 02:53 Urine Bilirubin Negative (Negative) 07/31/22 02:53 Urine Urobilinogen Negative (Negative) 07/31/22 02:53 Ur Leukocyte Esterase Negative (Negative) 07/31/22 02:53 Urine WBC (Auto) 1-5 /hpf (0-5) 07/31/22 02:53 Urine RBC (Auto) 0-4 /hpf (0-4) 07/31/22 02:53 U Hyaline Cast (Auto) 5-10 /lpf (0-5) H 07/31/22 02:53 U Epithel Cells (Auto) 20-30 /lpf (0-5) H 07/31/22 02:53 Urine Bacteria (Auto) Negative (Negative) 07/31/22 02:53 SARS-CoV-2, RNA, NAAT NEGATIVE (NEGATIVE) 07/31/22 03:47 Blood Type O Positive 08/04/22 11:21 Blood Type Recheck O Positive 07/31/22 08:37 Antibody Screen NEGATIVE 08/04/22 11:21 Crossmatch See Detail 08/04/22 11:21 Impressions Hip/Pelvis X-Ray 07/31/22 01:19 SINGLE VIEW PELVIS; 2 VIEWS RIGHT HIP CLINICAL HISTORY: Fall with right hip injury. FINDINGS: An AP view of the pelvis with AP and frog leg views of the right hip are obtained. No prior studies are available for comparison at the time of dictation. The skeletal structures are osteopenic. There is a comminuted intertrochanteric fracture of the right proximal femur with medial displacement of the lesser trochanter. Overlying soft tissue edema is noted. No additional acute fracture is seen involving the left hip or the bony pelvis. A left hip arthroplasty is in place. Mild arthritic change and joint space narrowing is noted in the right hip. Enthesophytes arise from the anterior superior iliac spines. Lumbosacral spondylosis is partially imaged. Numerous surgical clips project over the pelvis. Urological implants project over the perineum. There is no evidence of bowel obstruction. IMPRESSION: Intertrochanteric fracture of the right femur as above. Electronically signed by: Nolan Castellano M.D. 07/31/2022 8:15 AM Chest X-Ray 07/31/22 08:06 SINGLE VIEW CHEST CLINICAL HISTORY: Preoperative examination. Hip fracture. FINDINGS: An AP, portable, supine chest radiograph is obtained. No prior studies are available for comparison at the time of dictation. The examination is degraded by portable technique and patient rotation. The heart is mildly enlarged noting atherosclerotic calcification of the thoracic aorta. The pulmonary vasculature is not congested. Apparent right apical opacities likely represent superimposed shadow. No large pleural effusion or pneumothorax is seen. The skeletal structures are osteopenic. The bony thorax is grossly intact. Arthritic change is noted in the shoulders. Surgical clips are seen in the right chest wall. IMPRESSION: 1. Cardiomegaly without radiographic evidence of congestive failure. 2. Apparent right apical opacities likely represent superimposed shadows. Correlate clinically for evidence of a mild pneumonitis. ACT 112: Negative or not required by law. Electronically signed by: Nolan Castellano M.D. 07/31/2022 8:[address] 08/01/22 21:57 CT SCAN OF THE BRAIN WITHOUT IV CONTRAST CLINICAL HISTORY: Change in mental status. COMPARISON STUDY: No priors. TECHNIQUE: Unenhanced axial CT scan of the brain is performed from the vertex to the skull base. A dose lowering technique was utilized adhering to the principles of ALARA. CT DOSE: 614.27 mGy.cm FINDINGS: Brain parenchyma: There is age-related involutional change noting moderate subcortical and periventricular microangiopathic disease. There is no hemorrhage, mass effect, or evidence of acute territorial ischemia by CT criteria. 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 Black- white matter differentiation is preserved. No extra-axial fluid collection is seen. Ventricles, sulci, cisterns: Prominent secondary to involutional change. Intracranial vasculature: There is atherosclerotic calcification of the cavernous carotid and vertebral arteries. Calvarium: Unremarkable. Sinuses and mastoids: The visualized paranasal sinuses are clear. The mastoid air cells are well pneumatized. Orbits: The bony orbits are grossly intact. There are bilateral ocular lens implants. IMPRESSION: There is no hemorrhage, mass effect, or evidence of acute territorial ischemia by CT criteria. ACT 112: Negative or not required by law. Electronically signed by: Nolan Castellano M.D. 08/01/2022 10:27 PM Hip X-Ray 08/04/22 14:30 XR hip LT min 2V CLINICAL HISTORY: Left hip pain. COMPARISON: Pelvis radiograph July 31, 2022. FINDINGS: Alignment of the left hip arthroplasty is anatomic. No periprosthetic fracture or lucency. Pelvic surgical clips are noted. No acute fracture within visualized portions of the left hemipelvis is noted. IMPRESSION: Intact left hip arthroplasty. No periprosthetic fracture or lucency. ACT 112: Negative or not required by law. Electronically signed by: Melvin Prakash M.D. 08/04/2022 6:14 PM Hospital Course (1) Fracture of hip, right, closed: (2) Fall: (3) Acute blood loss anemia: Presented from [facility] after mechanical fall and right hip pain. Hip x-ray shows intertrochanteric fracture of right femur. POD#5 s/p right trochanteric nailing by Dr. Reyez No postop complication Hgb stable PT/OT eval Continue incentive spiromtry Activity and wound care orders as per ortho Pain control with bowel regimen Continue Weight bearing as tolerated Fall precaution Acute blood loss anemia Preop Hgb 11.2 then dropped 7.0 on 09/03 No active signs of bleeding S/P 2 unit PRBC transfusions yesterday Hgb 8.9 today Continue monitor H/H Left Hip Pain Patient reporting increased left hip pain while working with therapy today. Seems to be tender over left SI joint. Left hip XR showed intact left hip arthroplasty. No periprosthetic fracture or lucency. stable Urinary retention Parker placed on 08/02 - will plan to keep in place for 3-4 days for bladder rest h/o penile implant with manual sphincter release per patient urology consulted, input appreciated, patient will need outpatient follow-up with urology HTN Due to intermittent hypotension on 08/01, captopril was placed on hold. 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 CM following. Total Time Total Time Spent Total Time Spent (In Minutes): 35 minutes Discharge Plan Discharge Items Patient Disposition: Transfer Inpatient Rehab Fac Reason For Visit: FALL RIGHT HIP FX Discharge Diagnosis: Fracture of hip, right, closed: Fall: Acute blood loss anemia: Left Hip Pain Urinary retention Hypertension DM type II History of prostate cancer Activity: Resume your previous activity Non-emergency contact: Primary Care Provider, Surgeon and Urologist Call non-emergency contact if: you have any medication questions Follow-up/Referrals: Melia Ji MD [Primary Care Provider] - Eda Machado PA-C [Physician Band Attacher] - 08/13/22 11:15 am Diet: Carb Consistent or DM2 Addtl Attending Provider Instructions: Follow up with your primary care provider once discharge from rehab Follow up with orthopedic Eda MONACO on 08/13/22 @ 11:15 AM Ok to remove Parker catheter once patient mobility and normalization of activity during recovery improve Follow up with urology as needed Continue physical and occupational therapy Fall precaution Check BMP in 1 week to monitor your hemoglobin Please hold next dose of oxycodone if you develop any lethargy and drowsiness Please do not drive or operate any machine while on oxycodone Addtl Vac Press Operator Provider Instructions: ORTHOPEDIC DISCHARGE INSTRUCTIONS -Weight bearing as tolerated with walker to assist in ambulation -PT/OT -Frequently ice, at least 20 minutes 5 times a day. -You may shower on Post op Day 3. You may let running water run over top of incision. Please make sure completely dry before reinforcing being gauze pads and tegaderm. Please call our office if you experience any fevers, chills; or any increased redness, swelling, purulent drainage from incision site -DVT prophylaxis: Aspirin 81 mg twice a day for 6 weeks, LUBA compression stockings for 3 weeks -While taking Aspirin, if you start to get upset stomach, we recommend taking over the counter Pepcid, 20mg twice a day as long as you are taking the Aspirin -Pain control: Recommend oxycodone 5mg every 4-6 hours as needed, Tylenol 500- 1000mg every 8 hours -To promote healing, please take 500mg Vitamin C twice a day with meals x 2 weeks and Iron 325 mg twice a day with meals x 2 weeks -While on narcotic pain medication and iron supplement, we recommend you take a stool softener to prevent constipation -Follow up in 2 weeks with [facility] for post op evaluation and Zip-line removal. Please call our office sooner @ [phone] if you have any questions or concerns Pending Studies at Discharge: No Stand-Alone Forms: My [facility] Skilled Items Patient informed of condition?: Yes DNR: No Discharge Level of Care: Acute rehab Communicable Disease: No Discharge Prognosis: Stable Lines: None Urinary Catheter: Yes Medications and DC Order Prescriptions: New oxycodone 5 mg Tablet 5 mg PO Q8H PRN (Reason: pain) Qty: 12 0RF Rx Instructions: please hold for lethargy polyethylene glycol 3350 [Miralax] 17 gram Powder In Packet 17 g PO DAILY PRN (Reason: constipation) Qty: 30 0RF aspirin 81 mg Tablet,Delayed Release (Dr/Ec) 81 mg PO BID 30 Days Qty: 60 0RF Continued latanoprost 0.005 % drops 1 drp ophthalmic (eye) HS atorvastatin 40 mg tablet 40 mg PO HS calcium carbonate [Calcium 600] 600 mg calcium (1,500 mg) Tablet 600 mg PO DAILY ascorbic acid (vitamin C) [Vitamin C] 500 mg Tablet 500 mg PO DAILY metformin 1,000 mg tablet 1,000 mg PO BID captopril 50 mg tablet 50 mg PO BID vitamin B complex Tablet 1 tab PO DAILY hydrochlorothiazide 25 mg tablet 25 mg PO DAILY vitamin E 268 mg (400 unit) Capsule 268 mg PO DAILY cholecalciferol (vitamin D3) [Vitamin D3] 25 mcg (1,000 unit) Capsule 25 mcg PO DAILY Tradjenta 5 mg tablet 5 mg PO DAILY Rhopressa 0.02 % drops 1 drp ophthalmic (eye) DAILY Discharge Orders: Discharge Order (Routine); Ordered 08/06/22 Ordered By: Popeye Richter Admission Data Admit Date/Time: 07/31/22 04:44 Attending Provider: Popeye Richter Admit Provider: Kaushal Rodgers Primary Care Provider: Melia Ji Other Providers: Kaushal Rodgers ; Rey Gimenez ; Saundra Cantu ; Deepak Kumari ; Layne Willoughby ; Mitchel Culver ; Teri Dooley ; Shira Noel N ; Janeen Gillette ; Tristian Ribeiro ; Markell Smith ; Luis Carlton ; Luis Morales ; [facility] ; [place],[facility] ; [facility] ; [facility], ; Tor Llanos ; Braulio Sawyer Other Interventions: Discharge Summary Assessment (RN) Last Done: 08/06/22 15:40
== END 2022-08-06 17:00 | DRG 481 ==
LOC: ED 23:07 → EDINP 07-31 04:44 → SUATTDRO 07-31 04:44 → EDINP 07-31 06:56 → 3W 07-31 17:00
DX: I10 Essential (primary) hypertension; Z79.84 Long term (current) use of oral hypoglycemic drugs; Z79.899 Other long term (current) drug therapy; E11.319 Type 2 diabetes mellitus with unspecified diabetic retinopathy without macular edema; D62 Acute posthemorrhagic anemia; S72.141A Displaced intertrochanteric fracture of right femur, initial encounter for closed fracture; H54.8 Legal blindness, as defined in USA; Z96.89 Presence of other specified functional implants; Z92.21 Personal history of antineoplastic chemotherapy; R33.9 Retention of urine, unspecified; Z85.46 Personal history of malignant neoplasm of prostate; E78.5 Hyperlipidemia, unspecified; W19.XXXA Unspecified fall, initial encounter; R32 Unspecified urinary incontinence; M25.552 Pain in left hip

== ENCOUNTER 2024-01-28 12:25 | Inpatient (IN) ==
--- NOTE | 2024-01-28 12:46 | Emergency Department Note ---
ED Provider Note History of Present Illness Chief Complaint: Hip Pain Stated Complaint: FALL, HIP PAIN Time Seen by Provider: 01/28/24 12:45 This is an 88-year-old male with a history of diabetes, blindness, dysfunctional voiding of urine, accompanied by his and son via EMS from [facility] with left hip pain secondary to a fall that occurred prior to arrival. Patient states that he was trying to enter the building when the automatic door began to close on him before he had made through the door and it bumped him causing him to fall on the left hip. He then completely slid all the way down. He did not hit his head and this was witnessed. No loss of consciousness. He is concerned he has a hip fracture as he has been unable to raise the left leg. He denies any headache, chest pain, shortness of breath, new numbness or tingling in his feet. Patient has been feeling fine otherwise with no acute medical concerns. Has a history of a left hip replacement in the s. Takes aspirin, no other blood thinners. Home Medications Medication Instructions Recorded Confirmed Type ascorbic acid (vitamin C) 500 mg 500 mg PO DAILY 07/31/22 01/28/24 History tablet (Vitamin C) atorvastatin 40 mg tablet 40 mg PO HS 07/31/22 01/28/24 History calcium carbonate (Calcium 600) 600 mg PO DAILY 07/31/22 01/28/24 History latanoprost 0.005 % eye drops 1 drp ophthalmic (eye) HS 07/31/22 01/28/24 History linagliptin 5 mg tablet (Tradjenta) 5 mg PO DAILY 07/31/22 01/28/24 History metformin 1,000 mg tablet 1,000 mg PO BID 07/31/22 01/28/24 History netarsudil 0.02 % eye drops 1 drp ophthalmic (eye) DAILY 07/31/22 01/28/24 History (Rhopressa) vitamin B complex 1 tab PO DAILY 07/31/22 01/28/24 History vitamin E 268 mg (400 unit) capsule 268 mg PO DAILY 07/31/22 01/28/24 History polyethylene glycol 3350 17 gram 17 g PO DAILY PRN constipation #30 08/06/22 01/28/24 Rx oral powder packet (Miralax) ea acetaminophen 325 mg capsule 650 mg PO QID PRN Pain 09/03/22 01/28/24 History (Tylenol) captopril 50 mg tablet 50 mg PO BID 09/03/22 01/28/24 History cholecalciferol (vitamin D3) 25 25 mcg PO DAILY 09/03/22 01/28/24 History mcg (1,000 unit) capsule docusate sodium 100 mg capsule 100 mg PO DAILY 09/03/22 01/28/24 History famotidine 20 mg tablet 20 mg PO DAILY 09/03/22 01/28/24 History aspirin 81 mg tablet,delayed 81 mg PO QAM 01/28/24 01/28/24 History release hydrochlorothiazide 25 mg tablet 12.5 mg PO QAM 01/28/24 01/28/24 History magnesium oxide 400 mg (241.3 mg 400 mg PO QAM 01/28/24 01/28/24 History magnesium) tablet multivitamin 1 tab PO .NOON 01/28/24 01/28/24 History omega [id number]-fish oil 1,000 mg 1 cap PO .NOON 01/28/24 01/28/24 History (120 mg-180 mg) capsule (Fish Oil) Allergies Allergy/AdvReac Type Severity Reaction Status Date / Time No Known Allergies Allergy Verified 01/25/24 13:11 Past Med/Surg History Problem List (Updated 01/28/24 @ 16:14 by ELA Leon) Fall (Acute) Sally-prosthetic fracture around prosthetic hip (Acute) Renal lesion COVID-19 (Acute) Incontinence Legally blind Personal history of diabetic foot ulcer Diabetic peripheral neuropathy associated with type 2 diabetes mellitus Recurrent falls (Acute) 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 Hyperlipidemia HTN (hypertension) Medical History History of hip fracture (~2021) History of prostate cancer H/O breast disorder in male Surgical History Status post implantation of artificial urinary sphincter Hx of appendectomy History of penile implant History of total left hip replacement Social History Smoking Status: Never smoker Hx Alcohol Use: No Hx Substance Use: No Preferred Language: Turkmen Communication Ability: Effective Visual Impairment: Blindness Hearing Ability: Hard of Hearing Linseed Oil Order Filler Required: No Beliefs That Will Affect Care: None marital status: Current Living Situation: Personal Care Facility current occupational status: retired Feels Safe at Home: Yes Childhood Exposure to Second-Hand Smoke: No Diet: regular Gender Identity: Male Assistive Devices: Cane, Glasses, Walker and Wheelchair Physical Exam Vital Signs Vital Signs - 24 hr 01/28/24 12:34 01/28/24 12:34 01/28/24 12:39 Temperature 98.2 F 98.2 F Temperature Source Oral Oral Pulse Rate 69 61 Pulse Rate [Apical] 69 Pulse Rate from SpO2 Sensor Pulse Rhythm [Apical] Regular Pulse Strength [Apical] Normal Respiratory Rate 18 18 Respiratory Effort / Characteristics Non-Labored Spontaneous Non-Labored Spontaneous Respiratory Depth Normal Normal Respiratory Pattern Regular Blood Pressure 168/65 H Blood Pressure [Left Arm] 168/65 H Blood Pressure Mean 99 Blood Pressure Mean [Left Arm] 99 Blood Pressure Position Semi-fowlers Blood Pressure Position [Left Arm] Pulse Oximetry 97 97 Oxygen Delivery Method Room Air Room Air Sepsis Recent Fever Within 48 Hours No Sepsis New/Unexplained Change in Mental Status N/A Sepsis Action Taken by Nursing No Action Required 01/28/24 14:54 01/28/24 15:00 01/28/24 15:00 Temperature Temperature Source Pulse Rate 55 L Pulse Rate [Apical] 54 L Pulse Rate from SpO2 Sensor 55 L Pulse Rhythm [Apical] Regular Pulse Strength [Apical] Respiratory Rate 17 13 Respiratory Effort / Characteristics Non-Labored Spontaneous Respiratory Depth Normal Respiratory Pattern Blood Pressure 150/63 H Blood Pressure [Left Arm] 142/61 H Blood Pressure Mean 106 Blood Pressure Mean [Left Arm] 88 Blood Pressure Position Blood Pressure Position [Left Arm] Semi-fowlers Pulse Oximetry 95 96 Oxygen Delivery Method Room Air Room Air Sepsis Recent Fever Within 48 Hours Sepsis New/Unexplained Change in Mental Status Sepsis Action Taken by Nursing 01/28/24 15:30 01/28/24 16:00 01/28/24 16:00 Temperature Temperature Source Pulse Rate 54 L 62 Pulse Rate [Apical] Pulse Rate from SpO2 Sensor 53 L 62 Pulse Rhythm [Apical] Pulse Strength [Apical] Respiratory Rate 16 15 Respiratory Effort / Characteristics Respiratory Depth Respiratory Pattern Blood Pressure 178/93 H Blood Pressure [Left Arm] Blood Pressure Mean 137 Blood Pressure Mean [Left Arm] Blood Pressure Position Blood Pressure Position [Left Arm] Pulse Oximetry 96 96 Oxygen Delivery Method Room Air Room Air Sepsis Recent Fever Within 48 Hours Sepsis New/Unexplained Change in Mental Status Sepsis Action Taken by Nursing 01/28/24 16:30 01/28/24 16:38 Temperature Temperature Source Pulse Rate 62 62 Pulse Rate [Apical] Pulse Rate from SpO2 Sensor 60 Pulse Rhythm [Apical] Pulse Strength [Apical] Respiratory Rate 19 Respiratory Effort / Characteristics Respiratory Depth Respiratory Pattern Blood Pressure Blood Pressure [Left Arm] Blood Pressure Mean Blood Pressure Mean [Left Arm] Blood Pressure Position Blood Pressure Position [Left Arm] Pulse Oximetry 96 Oxygen Delivery Method Room Air Sepsis Recent Fever Within 48 Hours Sepsis New/Unexplained Change in Mental Status Sepsis Action Taken by Nursing CONSTITUTIONAL: Well developed, well nourished, in no acute distress. HEAD: Normocephalic, atraumatic. NECK: Full active range of motion. RESPIRATORY: Breathing unlabored and symmetric. Lungs clear to auscultation bilaterally. No wheeze, rales, or rhonchi. CARDIOVASCULAR: Regular rate and rhythm. No murmurs, rubs, or gallops. CHEST: Nontender, no crepitus. ABDOMEN: Normal bowel sounds. Soft, nontender, no peritonitis. No masses. MUSCULOSKELETAL: There is tenderness in the left pelvis with AP compression of the pelvis. There is tenderness in the left hip region. Patient unable to perform straight leg raise on the left secondary to left hip pain. Tenderness extends into the proximal femur. There is no tenderness in the remainder of the left lower extremity. Patient able to move all toes on the left side. SKIN: [place], warm, dry. Bilateral feet are warm and well-perfused. Capillary refill less than 2 seconds in left foot. NEUROLOGIC: Awake, alert, oriented. No focal deficits. PSYCHIATRIC: Appropriate. Normal affect. Course Administered Medications Discontinued Medications Acetaminophen (Ofirmev) 1,000 mg in 100 mls @ 400 mls/hr IV NOW STA Stop: 01/28/24 13:12 Last Infusion: 01/28/24 13:20 Dose: Infused Documented By: Admin: 01/28/24 13:05 Dose: 400 mls/hr Documented By: REJI Sodium Chloride (Nss) 500 mls @ 999 mls/hr IV .Q31M ONE Stop: 01/28/24 16:42 Last Infusion: 01/28/24 16:45 Dose: Infused Documented By: Admin: 01/28/24 16:14 Dose: 999 mls/hr Documented By: REJI Morphine Sulfate (Morphine Sulfate 2 Mg/Ml Carp) 2 mg IV NOW STA Stop: 01/28/24 16:21 Last Admin: 01/28/24 16:24 Dose: 2 mg Documented By: REJI Medical Decision Making Differential Diagnosis Contusion, hematoma, fracture, hardware disruption, neurovascular injury, electrolyte imbalance, hypoglycemia, hyperglycemia, among other pathology Laboratory Data 01/28/24 12:57 01/28/24 12:57 Lab Results 01/28/24 Range/Units 12:57 WBC 9.05 (4.8-10.8) K/ul RBC 3.70 L (4.70-6.10) M/uL Hgb 11.2 L (14.0-18.0) g/dl Hct 34.9 L (42.0-52.0) % MCV 94.3 (80.0-100.0) fL MCH 30.3 (25.0-34.0) pg MCHC 32.1 (32.0-36.0) g/dL RDW Std Deviation 44.9 (36.4-46.3) fL RDW Coeff of [place] 13.1 (11.5-14.5) % Plt Count 211 (130-400) K/uL MPV 10.3 (9.4-12.4) fL Immature Gran % (Auto) 0.4 % Neut % (Auto) 68.4 % Lymph % (Auto) 20.0 % [place] % (Auto) 9.1 % Eos % (Auto) 1.7 % Baso % (Auto) 0.4 % Neut # (Auto) 6.19 (1.40-6.50) K/uL Lymph # (Auto) 1.81 (1.20-3.40) K/uL [place] # (Auto) 0.82 H (0.11-0.59) K/uL Eos # (Auto) 0.15 (0.00-0.50) K/uL Baso # (Auto) 0.04 (0.00-0.20) K/uL Immature Gran # (Auto) 0.04 (0.01-0.20) K/uL PT 10.9 (9.0-12.0) Seconds INR 1.0 (0.9-1.1) APTT 22 (21-31) Seconds PTT Ratio 0.8 Sodium 141 (136-145) mmol/L Potassium 4.2 (3.5-5.1) mmol/L Chloride 105 (98-107) mmol/L Carbon Dioxide 29 (21-32) mmol/L Anion Gap 7 (3-11) BUN 24 H (6-23) mg/dl Creatinine 0.94 (0.6-1.4) mg/dl Est Cr Clr Drug Dosing 66.6 ml/min Est GFR ( Amer) 84.7 ml/min Est GFR (Non-Af Amer) 73.1 ml/min BUN/Creatinine Ratio 25.5 H (10-20) Glucose 244 H (70-99(Fasting)) mg/dl Calcium 9.2 (8.6-10.3) mg/dl Total Bilirubin 0.4 (0.2-1.0) mg/dl AST 17 (13-39) U/L ALT 8 (7-52) U/L Alkaline Phosphatase 86 (34-104) U/L Total Protein 6.8 (6.0-8.3) gm/dl Albumin 3.7 (3.4-5.0) gm/dl Globulin 3.1 (2.5-4.0) gm/dl Albumin/Globulin Ratio 1.2 (0.9-2) Imaging Data Attestation: I personally reviewed and interpreted this imaging study as follows: (I agree with the radiologist's interpretation) Radiologist's Impression: Hip X-Ray 01/28/24 12:58 LEFT HIP 2 VIEWS CLINICAL HISTORY: Fall. Left hip pain. FINDINGS: AP and frog-leg views of the left hip are compared to study dated 08/04/2022. The skeletal structures are osteopenic. A left hip arthroplasty is in near anatomic alignment. There is a nondisplaced periprosthetic fracture through the greater trochanter of the left proximal femur. No additional acute fracture is identified. The visualized left hemipelvis appears intact. Numerous surgical clips and penile implants project over the pelvis. There is advanced atherosclerotic calcification of the left femoral artery. IMPRESSION: Nondisplaced periprosthetic fracture through the greater trochanter of the left proximal femur. Electronically signed by: Nolan Castellano M.D. 01/28/2024 1:37 PM MDM Narrative 88-year-old male presents to the emergency department with left hip pain secondary to a fall that occurred prior to arrival. See above for further details. On exam patient resting comfortably no distress at rest. He does have reproducible tenderness over the left hip, left pelvis, and left proximal femur. He is unable to perform straight leg raise due to pain. His fall sounds very minor which only resulted in him landing on the left hip and then slouching over. He did not hit his head. IV was inserted and labs were obtained. Patient was given IV Tylenol for pain. An x-ray of the left hip was obtained demonstrating a nondisplaced periprosthetic fracture at the greater trochanteric. Labs: Stable anemia hemoglobin of 11.2. No leukocytosis. No thrombocytopenia. No electrolyte disturbances. Coags normal. No transaminitis. Hyperglycemia at 244, known diabetic. Was given some IV fluids. Patient required a dose of morphine to control his pain. I called and spoke with Dr. Vasquez with [facility] on-call regarding the patient's injury. He states that this is a nonoperable injury and the patient can be weightbearing as tolerated with outpatient follow-up in 1 week patient is able to manage on an outpatient basis. I attempted to ambulate the patient and the patient had severe pain with any range of motion of the left hip and was unable to ambulate. Given his age, ambulatory dysfunction, it was felt to be most prudent to admit the patient for ambulatory dysfunction, pain management, PT OT evaluation, and likely rehab placement. Discussed the case with [facility] who will admit the patient under Dr. Diaz. Case reviewed with ED attending Dr. Garland who is agreeable with this plan. Impression Sally-prosthetic fracture around prosthetic hip, Fall Discharge Plan Visit Data Chief Complaint: Hip Pain Stated Complaint: FALL, HIP PAIN ED Provider: Edgardo Garland ED Midlevel Provider: Fer Keene Discharge Problem: Sally-prosthetic fracture around prosthetic hip, Fall Patient Disposition: Admitted As Inpatient Condition: Good Prescriptions Prescriptions: No Action docusate sodium 100 mg capsule 100 mg PO DAILY Rx Instructions: isnt on it but and son both think he would benefit famotidine 20 mg tablet 20 mg PO DAILY acetaminophen [Tylenol] 325 mg capsule 650 mg PO QID PRN (Reason: Pain) cholecalciferol (vitamin D3) 25 mcg (1,000 unit) capsule 25 mcg PO DAILY latanoprost 0.005 % drops 1 drp ophthalmic (eye) HS atorvastatin 40 mg tablet 40 mg PO HS calcium carbonate [Calcium 600] 600 mg calcium (1,500 mg) Tablet 600 mg PO DAILY Rx Instructions: per 1200 ascorbic acid (vitamin C) [Vitamin C] 500 mg Tablet 500 mg PO DAILY metformin 1,000 mg tablet 1,000 mg PO BID vitamin B complex Tablet 1 tab PO DAILY vitamin E 268 mg (400 unit) Capsule 268 mg PO DAILY Tradjenta 5 mg tablet 5 mg PO DAILY Rhopressa 0.02 % drops 1 drp ophthalmic (eye) DAILY polyethylene glycol 3350 [Miralax] 17 gram Powder In Packet 17 g PO DAILY PRN (Reason: constipation) Qty: 30 0RF captopril 50 mg tablet 50 mg PO BID multivitamin Tablet 1 tab PO .NOON aspirin 81 mg tablet,delayed release (DR/EC) 81 mg PO QAM magnesium oxide 400 mg (241.3 mg magnesium) tablet 400 mg PO QAM hydrochlorothiazide 25 mg tablet 12.5 mg PO QAM omega [id number]-fish oil [Fish Oil] 1,000 mg (120 mg-180 mg) capsule 1 cap PO .NOON Referrals Referrals: Melia Ji MD [Primary Care Provider] - Discharge Problem: Sally-prosthetic fracture around prosthetic hip Qualifiers: Encounter type: initial encounter Qualified Code(s): M97.8XXA - Periprosthetic fracture around other internal prosthetic joint, initial encounter Fall Qualifiers: Encounter type: initial encounter Qualified Code(s): W19.XXXA - Unspecified fall, initial encounter
[2024-01-28] MEDS: ACETAMINOPHEN 1,000 MG/100 ML VIAL IV STA (13:05)
[2024-01-28 13:23] LABS: Basophils # (auto) 0.04 K/uL (0.00-0.20); Basophils % (auto) 0.4 %; Eosinophils # (auto) 0.15 K/uL (0.00-0.50); Eosinophils % (auto) 1.7 %; Hematocrit (blood only) 34.9 % (42.0-52.0); Hemoglobin 11.2 g/dl (14.0-18.0); Immature Granulocytes # (auto) 0.04 K/uL (0.01-0.20); Immature Granulocytes % (auto) 0.4 %; Lymphocytes # (auto) 1.81 K/uL (1.20-3.40); Mean Corpuscular Hemoglobin 30.3 pg (25.0-34.0); Mean Corpuscular Hgb Conc 32.1 g/dL (32.0-36.0); Mean Corpuscular Volume 94.3 fL (80.0-100.0); Mean Platelet Volume 10.3 fL (9.4-12.4); Monocytes # (auto) 0.82 K/uL (0.11-0.59); Monocytes % (auto) 9.1 %; Neutrophils # (auto) 6.19 K/uL (1.40-6.50); Neutrophils % (auto) 68.4 %; Platelet Count 211 K/uL (130-400); RDW Coefficient of Variation 13.1 % (11.5-14.5); RDW Standard Deviation 44.9 fL (36.4-46.3); White Blood Count 9.05 K/ul (4.8-10.8)
[2024-01-28 13:35] LABS: Albumin Globulin Ratio 1.2 (0.9-2); Albumin Level 3.7 gm/dl (3.4-5.0); BUN Creatinine Ratio 25.5 (10-20); Bilirubin,Total 0.4 mg/dl (0.2-1.0); Calcium 9.2 mg/dl (8.6-10.3); Creatinine Clr Calc Pharmacy 66.6 ml/min; Est GFR (African American) 84.7 ml/min; Est GFR (Non-African American) 73.1 ml/min; Globulin 3.1 gm/dl (2.5-4.0); Potassium 4.2 mmol/L (3.5-5.1); Total Protein 6.8 gm/dl (6.0-8.3)
--- NOTE | 2024-01-28 13:38 | XRay Report ---
LEFT HIP 2 VIEWS CLINICAL HISTORY: Fall. Left hip pain. FINDINGS: AP and frog-leg views of the left hip are compared to study dated 08/04/2022. The skeletal structures are osteopenic. A left hip arthroplasty is in near anatomic alignment. There is a nondispl aced periprosthetic fracture through the greater trochanter of the left proximal femur. No additional acute fracture is identified. The visualized left hemipelvis appears intact. Numerous surgical clips and penile implants project over the pelvis. There is advanced atherosclerotic calcification of the left femoral artery. IMPRESSION: Nondisplaced periprosthetic fracture through the greater trochanter of the left proximal femur. Electronically signed by: Nolan Castellano M.D. 01/28/2024 1:37 PM
[2024-01-28 13:43] LABS: Partial Thromboplastin Ratio 0.8; Partial Thromboplastin Time 22 Seconds (21-31); Prothrombin Time 10.9 Seconds (9.0-12.0)
[2024-01-28] MEDS: SODIUM CHLORIDE 0.9% 500 ML IV ONE (16:14)
[2024-01-28] MEDS: MoRPHine SULFATE 2 MG/ML CARP IV STA (16:24)
--- NOTE | 2024-01-28 16:44 | History & Physical Report ---
Date of Service January 28, 2024 Assessment & Plan (1) Sally-prosthetic fracture around prosthetic hip: (2) Left hip pain: Plan: Naldo Johnston is an 88y/o M with PMHx of DM type II w/ associated peripheral neuropathy + proliferative retinopathy/macular edema of both eyes, hyperlipidemia, HTN, depression, mild cognitive impairment/dementia and other problems listed below who presented to the ED via EMS from [facility] with left hip pain secondary to a fall that occurred at the facility and was found to have a nondisplaced periprosthetic fracture through the greater trochanter of the left proximal femur. Labs appear grossly unremarkable, no concerns for an acute infection. Left hip x-ray revealed a nondisplaced periprosthetic fracture through the greater trochanter of the left proximal femur. ED provider (Fer Keene PA-C) spoke with Dr. Vasquez with [facility] orthopedics on-call regarding the patient's injury. Recommendation is for non- surgical, conservative treatment. He will need to use a walker and can weight- bear as tolerated. According to Dr. Vasquez's consultation documentation, he should not be performing too much activity and is going to need placement in rehab or SNF upon discharge. Plan is for routine outpatient f/u with [facility] orthopedics in approximately 2 weeks from now, and repeat x-rays will be completed at that time to ensure proper healing of the fracture. BP was elevated at 178/93 on admission, most likely due to to pain from left hip fracture. BP has since down trended, currently 147/64. Patient received 1 g IV Tylenol, 2 mg IV morphine and 500 mL NSS in the ED. -No need for continuous cardiac monitoring at this time. -Bowel regimen in place, can continue CHAR FILTER TANK TENDER HEAD Colace. -PRN po Tylenol for mild pain, IV Zofran. Bowel regimen in place. -PRN IV Toradol for moderate pain and PRN IV morphine for severe pain. -Mag and phos ordered for AM [pt takes magnesium supplement at home d/t previous hx of hypomagnesemia] -Repeat CBC, BMP in AM -PT/OT consults placed -Will need to schedule ortho f/u appt upon d/c. (3) Diabetic peripheral neuropathy associated with type 2 diabetes mellitus: Plan: Hold home CHAR FILTER TANK TENDER HEAD metformin and Tradjenta while admitted. Most recent hemoglobin A1C 7.8 on 10/26/23. 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 -Continue CHAR FILTER TANK TENDER HEAD Rhopressa, latanoprost (8) Mild cognitive impairment: Plan: -Monitor for any signs of delirium throughout hospital stay. (9) HTN (hypertension): Plan: BP was elevated at 178/93 on admission, most likely due to to pain from left hip fracture. BP has since down trended, currently 147/64. -Continue captopril, hydrochlorothiazide Patient's son, Omari, would like daily updates on his father as his primary biomedical repair technician/advocate. * His phone number is the following: * Patient's son mentioned that he has a previous hx of bed sores on both his sacral region and b/l heels [no current sores seen during PE]. DVT Prophylaxis: Lovenox Code Status: Full Code PCP: Melia Ji MD Dispo: Admit to Med/Surg Patient seen in collaboration with Dr. Daiz. Please see addendum. I spent a total of 75 minutes coordinating, documenting, and providing care for this patient excluding time spent in the performance of separately billed services. This included personally reviewing all current laboratories and imaging studies, medical reconciliation, outpatient chart review and discussion with specialists. This chart was completed in part utilizing Speech Voice Recognition Software. Grammatical errors, random word insertions, pronoun errors, and incomplete sentences are an occasional consequence of this system due to software limitations, ambient noise, and hardware issues. Any formal questions or concerns about the content, text, or information contained within the body of this dictation should be directly addressed to the provider for clarification. 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 History obtained from patient, and associated ED/PCP/specialist records. Patient seen at bedside, and is accompanied by his and son in the room whom both provide additional history. Patient states that he was attempting to enter a building through an automatic door at the facility and it accidentally closed on him, causing him to fall backwards and land on his left hip. Patient denies ever hitting his head or losing consciousness. This was a witnessed fall. He is not currently taking any blood thinner medications, but does take aspirin daily. Patient denies any headaches, chest pain, SOB, lightheadedness/dizziness or any extremity numbness or tingling. Patient states he has been feeling fine otherwise, and has no other concerns at this time. Pain currently controlled at this time, patient endorses comfort lying in bed. Labs appear grossly unremarkable, no concerns for an acute infection. Left hip x-ray revealed a nondisplaced periprosthetic fracture through the greater trochanter of the left proximal femur. ED provider (Fer Keene PA-C) spoke with Dr. Vasquez with [facility] orthopedics on-call regarding the patient's injury. Recommendation is for non- surgical, conservative treatment. He will need to use a walker and can weight- bear as tolerated. According to Dr. Vasquez's consultation documentation, he should not be performing too much activity and is going to need placement in rehab or SNF upon discharge. Plan is for routine outpatient f/u with [facility] orthopedics in approximately 2 weeks from now, and repeat x-rays will be completed at that time to ensure proper healing of the fracture. BP was elevated at 178/93 on admission, most likely due to to pain from left hip fracture. BP has since down trended, currently 147/64. Patient received 1 g IV Tylenol, 2 mg IV morphine and 500 mL NSS in the ED. Allergies Allergy/AdvReac Type Severity Reaction Status Date / Time No Known Allergies Allergy Verified 01/25/24 13:11 Home Medications Medication Instructions Recorded Confirmed Type ascorbic acid (vitamin C) 500 mg 500 mg PO DAILY 07/31/22 01/28/24 History tablet (Vitamin C) atorvastatin 40 mg tablet 40 mg PO HS 07/31/22 01/28/24 History calcium carbonate (Calcium 600) 600 mg PO DAILY 07/31/22 01/28/24 History latanoprost 0.005 % eye drops 1 drp ophthalmic (eye) HS 07/31/22 01/28/24 History linagliptin 5 mg tablet (Tradjenta) 5 mg PO DAILY 07/31/22 01/28/24 History metformin 1,000 mg tablet 1,000 mg PO BID 07/31/22 01/28/24 History netarsudil 0.02 % eye drops 1 drp ophthalmic (eye) DAILY 07/31/22 01/28/24 History (Rhopressa) vitamin B complex 1 tab PO DAILY 07/31/22 01/28/24 History vitamin E 268 mg (400 unit) capsule 268 mg PO DAILY 07/31/22 01/28/24 History polyethylene glycol 3350 17 gram 17 g PO DAILY PRN constipation #30 08/06/22 01/28/24 Rx oral powder packet (Miralax) ea acetaminophen 325 mg capsule 650 mg PO QID PRN Pain 09/03/22 01/28/24 History (Tylenol) captopril 50 mg tablet 50 mg PO BID 09/03/22 01/28/24 History cholecalciferol (vitamin D3) 25 25 mcg PO DAILY 09/03/22 01/28/24 History mcg (1,000 unit) capsule docusate sodium 100 mg capsule 100 mg PO DAILY 09/03/22 01/28/24 History famotidine 20 mg tablet 20 mg PO DAILY 09/03/22 01/28/24 History aspirin 81 mg tablet,delayed 81 mg PO QAM 01/28/24 01/28/24 History release hydrochlorothiazide 25 mg tablet 12.5 mg PO QAM 01/28/24 01/28/24 History magnesium oxide 400 mg (241.3 mg 400 mg PO QAM 01/28/24 01/28/24 History magnesium) tablet multivitamin 1 tab PO .NOON 01/28/24 01/28/24 History omega 6-trp-csz-fish oil 1,000 mg 1 cap PO .NOON 01/28/24 01/28/24 History (120 mg-180 mg) capsule (Fish Oil) Past Med/Surg History Problem List (Updated 01/28/24 @ 22:38 by Yasmine Lovell PA-C) Mild cognitive impairment Diabetic macular edema, both eyes Diabetic retinopathy of both eyes GERD (gastroesophageal reflux disease) Left hip pain Fall (Acute) Sally-prosthetic fracture around prosthetic hip (Acute) Diabetic peripheral neuropathy associated with type 2 diabetes mellitus Hyperlipidemia HTN (hypertension) Medical History (Updated 01/28/24 @ 22:38 by Yasmine Lovell PA-C) Renal lesion COVID-19 Personal history of diabetic foot ulcer Stage III pressure ulcer of left heel Recurrent falls 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 Incontinence Legally blind History of hip fracture (~2021) History of prostate cancer H/O breast disorder in male Surgical History Status post implantation of artificial urinary sphincter Hx of appendectomy History of penile implant History of total left hip replacement Social History Smoking Status: Never smoker Do You Dip or Chew Tobacco: No; Hx Alcohol Use: Yes Alcohol type: wine Hx Substance Use: No Preferred Language: Urdu Communication Ability: Effective Visual Impairment: Blindness Hearing Ability: Hard of Hearing 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 Physical Exam Physical Exam: General Appearance: WD/WN, vitals as above, NAD, laying in bed, pleasant, conversing. Head: Normocephalic, atraumatic. Eyes: Normal inspection, PERRL, conjunctivae normal, anicteric sclerae. ENT: External ear and nose normal, oropharynx normal. Neck: Normal visual inspection, trachea midline, no thyromegaly. Respiratory: Normal respiratory effort, lungs clear to auscultation, no wheeze, rales, rhonchi. No accessory muscle use. Cardiovascular: Regular rate, rhythm, no murmur, normal peripheral pulses, no BLE edema. Vessels: No JVD. Chest: Normal inspection of chest. Abdomen/GI: Normal bowel sounds, soft, nontender, no hepatosplenomegaly. Extremities/Musculoskeletal: Tenderness in the left hip region, patient unable to move left hip and leg appropriately secondary to pain. Neurologic: PERRL, EOMI, accommodation nl, no face palsy, no dysarthria, CN's II-XI grossly intact bilaterally. Psychiatric: A+Ox3, no focal deficits. Skin: No rashes, normal color, warm/dry. Results & Data Results & Data Vital Signs (Past 12 Hours) Vital Signs Temp Pulse Pulse Resp BP BP Pulse Ox 01/28/24 16:30 62 19 96 01/28/24 16:00 178/93 H 01/28/24 16:00 62 15 96 01/28/24 15:30 54 L 16 96 01/28/24 15:00 55 L 13 96 01/28/24 15:00 150/63 H 01/28/24 14:54 54 L 17 142/61 H 95 01/28/24 12:39 61 01/28/24 12:34 36.8 C 69 18 168/65 H 97 01/28/24 12:34 36.8 C 69 18 168/65 H 97 O2 Del Method 01/28/24 16:30 Room Air 01/28/24 16:00 01/28/24 16:00 Room Air 01/28/24 15:30 Room Air 01/28/24 15:00 Room Air 01/28/24 15:00 01/28/24 14:54 Room Air 01/28/24 12:39 01/28/24 12:34 Room Air 01/28/24 12:34 Room Air Laboratory Results Short CBC 01/28/24 Range/Units 12:57 WBC 9.05 (4.8-10.8) K/ul Hgb 11.2 L (14.0-18.0) g/dl Hct 34.9 L (42.0-52.0) % Plt Count 211 (130-400) K/uL BMP 01/28/24 12:57 Sodium 141 Potassium 4.2 Chloride 105 Carbon Dioxide 29 BUN 24 H Creatinine 0.94 Glucose 244 H Calcium 9.2 Liver Function 01/28/24 Range/Units 12:57 Total Bilirubin 0.4 (0.2-1.0) mg/dl AST 17 (13-39) U/L ALT 8 (7-52) U/L Alkaline Phosphatase 86 (34-104) U/L Albumin 3.7 (3.4-5.0) gm/dl Diagnostic Findings Hip X-Ray 01/28/24 12:58 LEFT HIP 2 VIEWS CLINICAL HISTORY: Fall. Left hip pain. FINDINGS: AP and frog-leg views of the left hip are compared to study dated 08/04/2022. The skeletal structures are osteopenic. A left hip arthroplasty is in near anatomic alignment. There is a nondisplaced periprosthetic fracture through the greater trochanter of the left proximal femur. No additional acute fracture is identified. The visualized left hemipelvis appears intact. Numerous surgical clips and penile implants project over the pelvis. There is advanced atherosclerotic calcification of the left femoral artery. IMPRESSION: Nondisplaced periprosthetic fracture through the greater trochanter of the left proximal femur. Electronically signed by: Nolan Castellano M.D. 01/28/2024 1:37 PM Medications Administered Discontinued Medications Acetaminophen (Ofirmev) 1,000 mg in 100 mls @ 400 mls/hr IV NOW STA Stop: 01/28/24 13:12 Last Infusion: 01/28/24 13:20 Dose: Infused Documented By: Admin: 01/28/24 13:05 Dose: 400 mls/hr Documented By: REJI Sodium Chloride (Nss) 500 mls @ 999 mls/hr IV .Q31M ONE Stop: 01/28/24 16:42 Last Infusion: 01/28/24 16:45 Dose: Infused Documented By: Admin: 01/28/24 16:14 Dose: 999 mls/hr Documented By: REJI Morphine Sulfate (Morphine Sulfate 2 Mg/Ml Carp) 2 mg IV NOW STA Stop: 01/28/24 16:21 Last Admin: 01/28/24 16:24 Dose: 2 mg Documented By: REJI ECG Additional Comments: No EKG performed in the ED. Code Status & VTE Plan Code Status FULL CODE Supervising Physician Co-Signing Physician Notes Pt was seen and examined by myself, Nivia Diaz MD on the day of service. Care was coordinated with Yasmine Lovell PA-C. 88yo presenting with left hip fracture, Hx of previous left hip arthroplasty On exam comfortable, stated he is now noticing pain in left shoulder. Has full ROM left shoulder, however painful. L hip- Pain control, ortho consult, appreciate recs. L shoulder- xr shoulder ordered for AM, pain control PT/OT Otherwise as above. I spent a total [id number] coordinating, documenting, and providing care for this patient excluding time spent in the performance of separately billed services (1) Sally-prosthetic fracture around prosthetic hip Encounter type: initial encounter Qualified Code(s): M97.8XXA - Periprosthe tic fracture around other internal prosthetic joint, initial encounter; Z96.649 - Presence of unspecified artificial hip joint (4) Hyperlipidemia Hyperlipidemia type: unspecified Qualified Code(s): E78.5 - Hyperlipidemia, unspecified (5) GERD (gastroesophageal reflux disease) Esophagitis presence: esophagitis presence not specified Qualified Code(s): K21.9 - Gastro-esophageal reflux disease without esophagitis (6) Diabetic retinopathy of both eyes Diabetes mellitus macular edema: with macular edema Diabetes mellitus type: type 2 Diabetic retinopathy severity: with unspecified retinopathy severity Qualified Code(s): E11.311 - Type 2 diabetes mellitus with unspecified diabetic retinopathy with macular edema (9) HTN (hypertension) Hypertension type: unspecified Qualified Code(s): I10 - Essential (primary) hypertension
--- NOTE | 2024-01-28 18:06 | Orthopedic Consultation ---
Date of Consultation January 28, 2024 Assessment & Plan (1) Sally-prosthetic fracture around prosthetic hip: discussed the diagnosis and treatment with the patient, his , and his son. Recommendation is for nonsurgical treatment. He will need to use a walker and can weight-bear as tolerated. However he should not do too much in the way of activity. Did not pass functional testing today and therefore will be admitted to internal medicine for pain control and for physical therapy evaluation. Is going to need placement in a rehab or fdc facility. Follow-up with [facility] orthopedics approximately 2 weeks after his injury with repeat x-rays done at that time. 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 Patient states that he was trying to enter the building when the automatic door began to close on him before he had made through the door and it bumped him causing him to fall on the left hip. He then completely slid all the way down. He did not hit his head and this was witnessed. No loss of consciousness. He is concerned he has a hip fracture as he has been unable to raise the left leg. He denies any headache, chest pain, shortness of breath, new numbness or tingling in his feet. Patient has been feeling fine otherwise with no acute medical concerns. Has a history of a left hip replacement in the 90s. Takes aspirin, no other blood thinners. Patient states he uses a walker at baseline. Reports the pain is located in the lateral aspect of the hip and radiates into the lateral thigh. No pain in the back or below the knee. Denies pain in other areas of the body. Allergies Allergy/AdvReac Type Severity Reaction Status Date / Time No Known Allergies Allergy Verified 01/25/24 13:11 Home Medications Medication Instructions Recorded Confirmed Type ascorbic acid (vitamin C) 500 mg 500 mg PO DAILY 07/31/22 01/28/24 History tablet (Vitamin C) atorvastatin 40 mg tablet 40 mg PO HS 07/31/22 01/28/24 History calcium carbonate (Calcium 600) 600 mg PO DAILY 07/31/22 01/28/24 History latanoprost 0.005 % eye drops 1 drp ophthalmic (eye) HS 07/31/22 01/28/24 History linagliptin 5 mg tablet (Tradjenta) 5 mg PO DAILY 07/31/22 01/28/24 History metformin 1,000 mg tablet 1,000 mg PO BID 07/31/22 01/28/24 History netarsudil 0.02 % eye drops 1 drp ophthalmic (eye) DAILY 07/31/22 01/28/24 History (Rhopressa) vitamin B complex 1 tab PO DAILY 07/31/22 01/28/24 History vitamin E 268 mg (400 unit) capsule 268 mg PO DAILY 07/31/22 01/28/24 History polyethylene glycol 3350 17 gram 17 g PO DAILY PRN constipation #30 08/06/22 01/28/24 Rx oral powder packet (Miralax) ea acetaminophen 325 mg capsule 650 mg PO QID PRN Pain 09/03/22 01/28/24 History (Tylenol) captopril 50 mg tablet 50 mg PO BID 09/03/22 01/28/24 History cholecalciferol (vitamin D3) 25 25 mcg PO DAILY 09/03/22 01/28/24 History mcg (1,000 unit) capsule docusate sodium 100 mg capsule 100 mg PO DAILY 09/03/22 01/28/24 History famotidine 20 mg tablet 20 mg PO DAILY 09/03/22 01/28/24 History aspirin 81 mg tablet,delayed 81 mg PO QAM 01/28/24 01/28/24 History release hydrochlorothiazide 25 mg tablet 12.5 mg PO QAM 01/28/24 01/28/24 History magnesium oxide 400 mg (241.3 mg 400 mg PO QAM 01/28/24 01/28/24 History magnesium) tablet multivitamin 1 tab PO .NOON 01/28/24 01/28/24 History omega 9-xcc-ado-fish oil 1,000 mg 1 cap PO .NOON 01/28/24 01/28/24 History (120 mg-180 mg) capsule (Fish Oil) Patient History Medical History History of hip fracture (~2021) History of prostate cancer H/O breast disorder in male Surgical History Status post implantation of artificial urinary sphincter Hx of appendectomy History of penile implant History of total left hip replacement Social History Smoking Status: Never smoker Hx Alcohol Use: No Hx Substance Use: No Preferred Language: Telugu Communication Ability: Effective Visual Impairment: Blindness Hearing Ability: Hard of Hearing Flanging Operator Required: No Beliefs That Will Affect Care: None marital status: Current Living Situation: Personal Care Facility current occupational status: retired Feels Safe at Home: Yes Childhood Exposure to Second-Hand Smoke: No Diet: regular Gender Identity: Male Assistive Devices: Cane, Glasses, Walker and Wheelchair Physical Exam Physical Exam: On exam he is resting comfortably in bed in no acute distress. Left lower extremity exam reveals no obvious deformities. He does have some swelling over the lateral aspect of the left hip but minimal bruising. He is tender to palpation over the greater trochanter. Tolerates gentle logroll. He fires toe flexors and extensors and ankle dorsiflexors and plantar flexors without difficulty. Reports sensation intact to moving light touch in L3-S1 dermatomes. Results & Data Vital Signs (Past 12 Hours) Vital Signs Temp Pulse Pulse Resp BP BP Pulse Ox 01/28/24 17:30 61 14 96 01/28/24 17:00 61 19 97 01/28/24 17:00 163/78 H 01/28/24 16:38 62 01/28/24 16:30 62 19 96 01/28/24 16:00 178/93 H 01/28/24 16:00 62 15 96 01/28/24 15:30 54 L 16 96 01/28/24 15:00 55 L 13 96 01/28/24 15:00 150/63 H 01/28/24 14:54 54 L 17 142/61 H 95 01/28/24 12:39 61 01/28/24 12:34 36.8 C 69 18 168/65 H 97 01/28/24 12:34 36.8 C 69 18 168/65 H 97 O2 Del Method 01/28/24 17:30 Room Air 01/28/24 17:00 Room Air 01/28/24 17:00 01/28/24 16:38 01/28/24 16:30 Room Air 01/28/24 16:00 01/28/24 16:00 Room Air 01/28/24 15:30 Room Air 01/28/24 15:00 Room Air 01/28/24 15:00 01/28/24 14:54 Room Air 01/28/24 12:39 01/28/24 12:34 Room Air 01/28/24 12:34 Room Air Diagnostic Findings I reviewed his x-rays of the left hip done in the emergency room. These show a nondisplaced left greater trochanter fracture adjacent to a well-fixed left cemented total hip arthroplasty (1) Sally-prosthetic fracture around prosthetic hip Encounter type: initial encounter Qualified Code(s): M97.8XXA - Periprosthetic fracture around other internal prosthetic joint, initial encounter; Z96.649 - Presence of unspecified artificial hip joint
[2024-01-28] MEDS ORDERED: POLYETHYLENE (MIRALAX) 17 GM PACK PO PRN (19:25)
[2024-01-28] MEDS ORDERED: GLUCOSE 40% GEL 15 GM TUBE PO PRN (19:25)
[2024-01-28] MEDS ORDERED: DEXTROSE 50% 50 ML SYRINGE IV PRN (19:25)
[2024-01-28] MEDS ORDERED: ALUMINUM/MAGNESIUM SUSP 30 ML UDC PO PRN (19:25)
[2024-01-28] MEDS ORDERED: ONDANSETRON INJ 2 MG/ML 2 ML VIAL IV PRN (19:25)
[2024-01-28] MEDS ORDERED: MAGNESIUM HYDROXIDE SUSP 30 ML UDC PO PRN (19:25)
[2024-01-28] MEDS ORDERED: GLUCOSE 10 TAB/TUBE PO PRN (19:25)
[2024-01-28] MEDS ORDERED: CARBOHYDRATES FOR HYPOGLYCEMIA PO PRN (19:25)
[2024-01-28] MEDS ORDERED: GLUCAGON FOR INJ 1 MG VIAL SQ PRN (19:25)
[2024-01-28] MEDS: ENOXAPARIN INJ 40 MG/0.4 ML SYR SQ SCH (20:24)
[2024-01-28] MEDS: ATORVASTATIN 40 MG TAB PO SCH (21:51)
[2024-01-28] MEDS: ACETAMINOPHEN 325 MG TAB PO PRN (21:51)
[2024-01-28] MEDS: INSULIN ASPART PER UNIT CHARGE SC SCH (21:52)
[2024-01-28] MEDS: LATANOPROST 0.005% OP SOLN 2.5 ML BTL OP SCH (21:52)
[2024-01-28] MEDS ORDERED: KETOROLAC TROMETHAMINE 15 MG/ML VIAL IV PRN (22:27)
[2024-01-28] MEDS ORDERED: MoRPHine SULFATE 2 MG/ML CARP IV PRN (22:27)
[2024-01-29 08:00] LABS: Hemoglobin 11.6 g/dl (14.0-18.0); Mean Corpuscular Hemoglobin 30.8 pg (25.0-34.0); Mean Corpuscular Hgb Conc 33.1 g/dL (32.0-36.0); Mean Corpuscular Volume 92.8 fL (80.0-100.0); Mean Platelet Volume 10.2 fL (9.4-12.4); Platelet Count 196 K/uL (130-400); RDW Standard Deviation 43.8 fL (36.4-46.3); Red Blood Count 3.77 M/uL (4.70-6.10); White Blood Count 9.09 K/ul (4.8-10.8)
[2024-01-29 08:12] LABS: BUN Creatinine Ratio 20.3 (10-20); Calcium 9.1 mg/dl (8.6-10.3); Creatinine Clr Calc Pharmacy 72.9 ml/min; Est GFR (African American) 94.2 ml/min; Est GFR (Non-African American) 81.3 ml/min; Magnesium 1.4 mg/dl (1.7-2.4); Phosphorus 3.2 mg/dl (2.5-4.9); Potassium 4.1 mmol/L (3.5-5.1)
[2024-01-29 08:41] LABS: Estimated Average Glucose 212 mg/dl
[2024-01-29] MEDS: FAMOTIDINE 20 MG TAB PO SCH (08:56)
[2024-01-29] MEDS: hydroCHLOROthiazide 25 MG TAB PO SCH (08:56)
[2024-01-29] MEDS: DOCUSATE SODIUM 100 MG CAP PO SCH (08:56)
[2024-01-29] MEDS: ASPIRIN 81 MG ECTAB PO SCH (08:56)
[2024-01-29] MEDS: MAGNESIUM OXIDE 400 MG TAB PO SCH ×2 (08:57→20:56)
--- NOTE | 2024-01-29 09:17 | XRay Report ---
LEFT SHOULDER 3 VIEWS HISTORY: left shoulder pain COMPARISON: None. FINDINGS: There is no fracture or dislocation. Soft tissues are unremarkable. The left clavicle is in tact. Moderate degenerative changes within the left shoulder. Small focus of calcification within the distal supraspinatus tendon. IMPRESSION: 1. No fracture or dislocation within the left shoulder. 2. Moderate osteoarthritis. 3. Supraspinatus calcific tendinitis. ACT 112: Negative or not required by law. Electronically signed by: Joseph Flanagan M.D. 01/29/2024 9:16 AM
[2024-01-29] MEDS ORDERED: oxyCODONE HCL IR 5 MG TAB (IMMEDIATE RELEASE) PO PRN (14:28)
--- NOTE | 2024-01-29 14:34 | Hospitalist Progress Note ---
Date of Service January 29, 2024 Assessment & Plan (1) Sally-prosthetic fracture around prosthetic hip: (2) Left hip pain: Plan: Naldo Johnston is an 88y/o M with PMHx of DM type II w/ associated peripheral neuropathy + proliferative retinopathy/macular edema of both eyes, hyperlipidemia, HTN, depression, mild cognitive impairment/dementia and other problems listed below who presented to the ED via EMS from [facility] with left hip pain secondary to a fall that occurred at the facility and was found to have a nondisplaced periprosthetic fracture through the greater trochanter of the left proximal femur. Left hip x-ray revealed a nondisplaced periprosthetic fracture through the greater trochanter of the left proximal femur. Evaluated byorthopedics. Recommendation is for non-surgical, conservative treatment. He will need to use a walker and can weight-bear as tolerated. Plan is for routine outpatient f/u with [facility] orthopedics in approximately 2 weeks from now, and repeat x-rays will be completed at that time to ensure proper healing of the fracture. -PRN po Tylenol for mild pain, IV Zofran. Bowel regimen in place. -oxycodone for moderate-severe pain. -PT/OT consults placed (3) Diabetic peripheral neuropathy associated with type 2 diabetes mellitus: Plan: Hold home [employer] metformin and Tradjenta while admitted. Most recent hemoglobin A1C 7.8 on 10/26/23. 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 -Continue [employer] Rhopressa, latanoprost (8) Mild cognitive impairment: Plan: -Monitor for any signs of delirium throughout hospital stay. (9) HTN (hypertension): Plan: -Continue captopril, hydrochlorothiazide DVT Prophylaxis: Lovenox Code Status: Full Code PCP: Melia iJ MD Dispo: Admit to Med/Surg Please note the above document was generated using voice recognition software. It may contain grammatical, syntax or spelling errors. Any formal questions or concerns about the content, text or information contained within the body of this dictation should be directly addressed to the provider for clarification Admission and Anticipated Discharge Date Admission Date: January 28, 2024 Subjective Patient seen and examined at bedside. Patient reports pain on his left shoulder abdomen. He reports minimal pain on his left hip. Appears comfortable; not in distress. Review of Systems Review of Systems: All systems reviewed & are unremarkable except as noted in Subjective Physical Exam Physical Exam: Constitutional: WD/WN, vitals as above, NAD, sitting up in bed, pleasant, conversing easily Respiratory: normal respiratory effort, lungs clear to auscultation, no wheeze, rales, rhonchi. Normal insp/exp effort, no accessory muscle use Cardiovascular: RRR, no murmur, no edema Vessels: no JVD or carotid bruit Chest: normal inspection of chest Abdomen: normal bowel sounds, soft, nontender, no hepatosplenomegaly Musculoskeletal: Pain on ROM on left shoulder and left hip Skin: no rashes, warm and dry normal turgor Neurologic: PERRL, EOMI, accommodation nl, no face palsy, no dysarthria CN's II- XI intact bilaterally and moves all extremities Psychiatric: A+Ox3, euthymic affect Results & Data Results & Data Vital Signs (Past 12 Hours) Vital Signs Temp Resp BP Pulse Ox O2 Del Method 01/29/24 07:29 36.3 C L 60 H 179/69 H 96 Room Air (1) Sally-prosthetic fracture around prosthetic hip Encounter type: initial encounter Qualified Code(s): M97.8XXA - Periprosthetic fracture around other internal prosthetic joint, initial encounter; Z96.649 - Presence of unspecified artificial hip joint (4) Hyperlipidemia Hyperlipidemia type: unspecified Qualified Code(s): E78.5 - Hyperlipidemia, unspecified (5) GERD (gastroesophageal reflux disease) Esophagitis presence: esophagitis presence not specified Qualified Code(s): K21.9 - Gastro-esophageal reflux disease without esophagitis (6) Diabetic retinopathy of both eyes Diabetes mellitus type: type 2 Diabetic retinopathy severity: with unspecified retinopathy severity Diabetes mellitus macular edema: with macular edema Qualified Code(s): E11.311 - Type 2 diabetes mellitus with unspecified diabetic retinopathy with macular edema (9) HTN (hypertension) Hypertension type: unspecified Qualified Code(s): I10 - Essential (primary) hypertension
--- NOTE | 2024-01-30 14:32 | Hospitalist Progress Note ---
Date of Service January 30, 2024 Assessment & Plan (1) Sally-prosthetic fracture around prosthetic hip: (2) Left hip pain: Plan: Naldo Johnston is an 88y/o M with PMHx of DM type II w/ associated peripheral neuropathy + proliferative retinopathy/macular edema of both eyes, hyperlipidemia, HTN, depression, mild cognitive impairment/dementia and other problems listed below who presented to the ED via EMS from [facility] with left hip pain secondary to a fall that occurred at the facility and was found to have a nondisplaced periprosthetic fracture through the greater trochanter of the left proximal femur. Left hip x-ray revealed a nondisplaced periprosthetic fracture through the greater trochanter of the left proximal femur. Evaluated by orthopedics. Recommendation is for non-surgical, conservative treatment. He will need to use a walker and can weight-bear as tolerated. Plan is for routine outpatient f/u with [facility] orthopedics in approximately 2 weeks from now, and repeat x-rays will be completed at that time to ensure proper healing of the fracture. -PRN po Tylenol for mild pain, IV Zofran. Bowel regimen in place. -oxycodone for moderate-severe pain. -PT/OT recommend rehab; patient referred to [facility] (3) Diabetic peripheral neuropathy associated with type 2 diabetes mellitus: Plan: Hold home GEOSPATIAL ENGINEER metformin and Tradjenta while admitted. Most recent hemoglobin A1C 7.8 on 10/26/23. 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 -Continue GEOSPATIAL ENGINEER Rhopressa, latanoprost (8) Mild cognitive impairment: Plan: -Monitor for any signs of delirium throughout hospital stay. (9) HTN (hypertension): Plan: -Continue captopril, hydrochlorothiazide DVT Prophylaxis: Lovenox Code Status: Full Code PCP: Melia Ji MD Dispo: Patient is stable to transfer to rehab. Case management on board Please note the above document was generated using voice recognition software. It may contain grammatical, syntax or spelling errors. Any formal questions or concerns about the content, text or information contained within the body of this dictation should be directly addressed to the provider for clarification Admission and Anticipated Discharge Date Admission Date: January 28, 2024 Subjective Patient seen and examined at bedside He reports left hip pain on minimal movement. Denies pain in other body parts No significant events overnight Review of Systems Review of Systems: All systems reviewed & are unremarkable except as noted in Subjective Physical Exam Physical Exam: Constitutional: WD/WN, vitals as above, NAD, sitting up in bed, pleasant, conversing easily Respiratory: normal respiratory effort, lungs clear to auscultation, no wheeze, rales, rhonchi. Normal insp/exp effort, no accessory muscle use Cardiovascular: RRR, no murmur, no edema Vessels: no JVD or carotid bruit Chest: normal inspection of chest Abdomen: normal bowel sounds, soft, nontender, no hepatosplenomegaly Musculoskeletal: Pain on ROM on left hip Skin: no rashes, warm and dry normal turgor Neurologic: PERRL, EOMI, accommodation nl, no face palsy, no dysarthria CN's II- XI intact bilaterally and moves all extremities Psychiatric: A+Ox3, euthymic affect Results & Data Results & Data Vital Signs (Past 12 Hours) Vital Signs Temp Pulse Resp BP BP Pulse Ox O2 Del Method 01/30/24 13:54 36.8 C 82 16 101/61 99/62 L 98 Room Air 01/30/24 07:39 36.4 C L 59 L 16 178/73 H 99 Room Air (1) Sally-prosthetic fracture around prosthetic hip Encounter type: initial encounter Qualified Code(s): M97.8XXA - Periprosthetic fracture around other internal prosthetic joint, initial encounter; Z96.649 - Presence of unspecified artificial hip joint (4) Hyperlipidemia Hyperlipidemia type: unspecified Qualified Code(s): E78.5 - Hyperlipidemia, unspecified (5) GERD (gastroesophageal reflux disease) Esophagitis presence: esophagitis presence not specified Qualified Code(s): K21.9 - Gastro-esophageal reflux disease without esophagitis (6) Diabetic retinopathy of both eyes Diabetes mellitus type: type 2 Diabetic retinopathy severity: with unspecified retinopathy severity Diabetes mellitus macular edema: with macular edema Qualified Code(s): E11.311 - Type 2 diabetes mellitus with unspecified diabetic retinopathy with macular edema (9) HTN (hypertension) Hypertension type: unspecified Qualified Code(s): I10 - Essential (primary) hypertension
--- NOTE | 2024-01-31 14:44 | Hospitalist Progress Note ---
Date of Service January 31, 2024 Assessment & Plan (1) Sally-prosthetic fracture around prosthetic hip: (2) Left hip pain: Plan: Naldo Johnston is an 88y/o M with PMHx of DM type II w/ associated peripheral neuropathy + proliferative retinopathy/macular edema of both eyes, hyperlipidemia, HTN, depression, mild cognitive impairment/dementia and other problems listed below who presented to the ED via EMS from [facility] with left hip pain secondary to a fall that occurred at the facility and was found to have a nondisplaced periprosthetic fracture through the greater trochanter of the left proximal femur. Left hip x-ray revealed a nondisplaced periprosthetic fracture through the greater trochanter of the left proximal femur. Evaluated by orthopedics. Recommendation is for non-surgical, conservative treatment. He will need to use a walker and can weight-bear as tolerated. Plan is for routine outpatient f/u with [facility] orthopedics in approximately 2 weeks from now, and repeat x-rays will be completed at that time to ensure proper healing of the fracture. -PRN po Tylenol for mild pain, IV Zofran. Bowel regimen in place. -oxycodone for moderate-severe pain. -PT/OT recommend rehab; patient referred to [facility] for 4 weeks for DVT prophylaxis (3) Diabetic peripheral neuropathy associated with type 2 diabetes mellitus: Plan: Hold home EQUIPMENT OPERATING ENGINEER metformin and Tradjenta while admitted. Most recent hemoglobin A1C 7.8 on 10/26/23. 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 -Continue EQUIPMENT OPERATING ENGINEER Rhopressa, latanoprost (8) Mild cognitive impairment: Plan: -Monitor for any signs of delirium throughout hospital stay. (9) HTN (hypertension): Plan: -Continue captopril, hydrochlorothiazide DVT Prophylaxis: Lovenox Code Status: Full Code PCP: Melia Ji MD Dispo: Patient is stable to transfer to rehab. Case management on board Please note the above document was generated using voice recognition software. It may contain grammatical, syntax or spelling errors. Any formal questions or concerns about the content, text or information contained within the body of this dictation should be directly addressed to the provider for clarification Admission and Anticipated Discharge Date Admission Date: January 28, 2024 Subjective Patient seen and examined at bedside Comfortable;not in any distress No significant events overnight Physical Exam Physical Exam: Constitutional: WD/WN, vitals as above, NAD, sitting up in bed, pleasant, conversing easily Respiratory: normal respiratory effort, lungs clear to auscultation, no wheeze, rales, rhonchi. Normal insp/exp effort, no accessory muscle use Cardiovascular: RRR, no murmur, no edema Vessels: no JVD or carotid bruit Chest: normal inspection of chest Abdomen: normal bowel sounds, soft, nontender, no hepatosplenomegaly Musculoskeletal: Painful ROM on left hip Skin: no rashes, warm and dry normal turgor Neurologic: PERRL, EOMI, accommodation nl, no face palsy, no dysarthria CN's II- XI intact bilaterally and moves all extremities Psychiatric: A+Ox3, euthymic affect Results & Data Results & Data Vital Signs (Past 12 Hours) Vital Signs Temp Pulse Resp BP Pulse Ox O2 Del Method 01/31/24 07:00 36.5 C 72 18 173/70 H 97 Room Air (1) Sally-prosthetic fracture around prosthetic hip Encounter type: initial encounter Qualified Code(s): M97.8XXA - Periprosthetic fracture around other internal prosthetic joint, initial encounter; Z96.649 - Presence of unspecified artificial hip joint (4) Hyperlipidemia Hyperlipidemia type: unspecified Qualified Code(s): E78.5 - Hyperlipidemia, unspecified (5) GERD (gastroesophageal reflux disease) Esophagitis presence: esophagitis presence not specified Qualified Code(s): K21.9 - Gastro-esophageal reflux disease without esophagitis (6) Diabetic retinopathy of both eyes Diabetes mellitus type: type 2 Diabetic retinopathy severity: with unspecified retinopathy severity Diabetes mellitus macular edema: with macular edema Qualified Code(s): E11.311 - Type 2 diabetes mellitus with unspecified diabetic retinopathy with macular edema (9) HTN (hypertension) Hypertension type: unspecified Qualified Code(s): I10 - Essential (primary) hypertension
--- NOTE | 2024-02-01 15:02 | Hospitalist Progress Note ---
Date of Service February 01, 2024 Assessment & Plan (1) Sally-prosthetic fracture around prosthetic hip: (2) Left hip pain: Plan: Naldo Johnston is an 88y/o M with PMHx of DM type II w/ associated peripheral neuropathy + proliferative retinopathy/macular edema of both eyes, hyperlipidemia, HTN, depression, mild cognitive impairment/dementia and other problems listed below who presented to the ED via EMS from [facility] with left hip pain secondary to a fall that occurred at the facility and was found to have a nondisplaced periprosthetic fracture through the greater trochanter of the left proximal femur. Left hip x-ray revealed a nondisplaced periprosthetic fracture through the greater trochanter of the left proximal femur. Evaluated by orthopedics. Recommendation is for non-surgical, conservative treatment. He will need to use a walker and can weight-bear as tolerated. Plan is for routine outpatient f/u with [facility] orthopedics in approximately 2 weeks from now, and repeat x-rays will be completed at that time to ensure proper healing of the fracture. -PRN po Tylenol for mild pain, IV Zofran. Bowel regimen in place. -oxycodone for moderate-severe pain. -PT/OT recommend rehab; [facility] for DVT prophylaxis (3) Diabetic peripheral neuropathy associated with type 2 diabetes mellitus: Plan: Hold home LAUNDRY AIDE metformin and Tradjenta while admitted. Most recent hemoglobin A1C 7.8 on 10/26/23. 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 -Continue LAUNDRY AIDE Rhopressa, latanoprost (8) Mild cognitive impairment: Plan: -Monitor for any signs of delirium throughout hospital stay. (9) HTN (hypertension): Plan: -Continue captopril, hydrochlorothiazide DVT Prophylaxis: Lovenox Code Status: Full Code PCP: Melia Ji MD Dispo: Patient is stable to transfer to rehab. Case management on board Please note the above document was generated using voice recognition software. It may contain grammatical, syntax or spelling errors. Any formal questions or concerns about the content, text or information contained within the body of this dictation should be directly addressed to the provider for clarification Admission and Anticipated Discharge Date Admission Date: January 28, 2024 Subjective Patient seen and examined at bedside. Is sitting up on the chair at the side of the bed; not in distress Reports that pain is well-controlled on current medication Working with PT OT Review of Systems Review of Systems: All systems reviewed & are unremarkable except as noted in Subjective Physical Exam Physical Exam: Constitutional: WD/WN, vitals as above, NAD, sitting up in bed, pleasant, conversing easily Respiratory: normal respiratory effort, lungs clear to auscultation, no wheeze, rales, rhonchi. Normal insp/exp effort, no accessory muscle use Cardiovascular: RRR, no murmur, no edema Vessels: no JVD or carotid bruit Chest: normal inspection of chest Abdomen: normal bowel sounds, soft, nontender, no hepatosplenomegaly Musculoskeletal: Painful ROM on left hip Skin: no rashes, warm and dry normal turgor Psychiatric: A+Ox3, euthymic affect Results & Data Results & Data Vital Signs (Past 12 Hours) Vital Signs Temp Pulse Resp BP Pulse Ox O2 Del Method 02/01/24 07:08 36.7 C 68 18 147/66 H 96 Room Air (1) Sally-prosthetic fracture around prosthetic hip Encounter type: initial encounter Qualified Code(s): M97.8XXA - Periprosthetic fracture around other internal prosthetic joint, initial encounter; Z96.649 - Presence of unspecified artificial hip joint (4) Hyperlipidemia Hyperlipidemia type: unspecified Qualified Code(s): E78.5 - Hyperlipidemia, unspecified (5) GERD (gastroesophageal reflux disease) Esophagitis presence: esophagitis presence not specified Qualified Code(s): K21.9 - Gastro-esophageal reflux disease without esophagitis (6) Diabetic retinopathy of both eyes Diabetes mellitus macular edema: with macular edema Diabetes mellitus type: type 2 Diabetic retinopathy severity: with unspecified retinopathy severity Qualified Code(s): E11.311 - Type 2 diabetes mellitus with unspecified diabetic retinopathy with macular edema (9) HTN (hypertension) Hypertension type: unspecified Qualified Code(s): I10 - Essential (primary) hypertension
--- NOTE | 2024-02-02 11:56 | Discharge Summary ---
Discharge Summary Date of Service February 02, 2024 Principal Dx & Hospital Course #1 = Principal Diagnosis (1) Sally-prosthetic fracture around prosthetic hip: (2) Left hip pain: (3) Diabetic peripheral neuropathy associated with type 2 diabetes mellitus: (4) Hyperlipidemia: (5) GERD (gastroesophageal reflux disease): (6) Diabetic retinopathy of both eyes: (7) Diabetic macular edema, both eyes: (8) Mild cognitive impairment: (9) HTN (hypertension): Plan Naldo Johnston is an 88y/o M with PMHx significant for DM type II w/ associated peripheral neuropathy + proliferative retinopathy/macular edema of both eyes, hyperlipidemia, HTN, depression, mild cognitive impairment/dementia and other problems listed below who presented to the ED via EMS from [facility] with left hip pain secondary to a fall that occurred at the facility and was found to have a nondisplaced periprosthetic fracture through the greater trochanter of the left proximal femur. Left Hip fracture Imaging noting a nondisplaced periprosthetic fracture through the greater trochanter of the left proximal femur. Pt was evaluated by orthopedics surgery, they recommended/stated the following: " discussed the diagnosis and treatment with the patient, his , and his son. Recommendation is for nonsurgical treatment. He will need to use a walker and can weight-bear as tolerated. However he should not do too much in the way of activity. Did not pass functional testing today and therefore will be admitted to internal medicine for pain control and for physical therapy evaluation. Is going to need placement in a rehab or usp facility. Follow-up with [facility] orthopedics approximately 2 weeks after his injury with repeat x-rays done at that time." Pt discharged with Lovenox SQ for DVT prophylaxis, continue for 30 days. Please ensure followup with orthopedic surgery as noted above in 2 weeks. Pt also with noted calcific tendinitis of right shoulder, please ensure outpatient orthopedic followup for that as well. Continue with appropriate pain control as needed. Pt discharged to [facility] for acute rehab/SNF services. Continue other home medications as ordered. Notes For Next Care Provider Medication Changes From Visit Lovenox SQ 40mg daily Admission HPI Per Admitting Provider Naldo Johnston is an 88y/o M with PMHx of DM type II w/ associated peripheral neuropathy + proliferative retinopathy/macular edema of both eyes, hyperlipidem ia, HTN, depression, mild cognitive impairment/dementia and other problems listed below who presented to the ED via EMS from [facility] with left hip pain secondary to a fall that occurred at the facility. History obtained from patient, and associated ED/PCP/specialist records. Patient seen at bedside, and is accompanied by his and son in the room whom both provide additional history. Patient states that he was attempting to enter a building through an automatic door at the facility and it accidentally closed on him, causing him to fall backwards and land on his left hip. Patient denies ever hitting his head or losing consciousness. This was a witnessed fall. He is not currently taking any blood thinner medications, but does take aspirin daily. Patient denies any headaches, chest pain, SOB, lightheadedness/dizziness or any extremity numbness or tingling. Patient states he has been feeling fine otherwise, and has no other concerns at this time. Pain currently controlled at this time, patient endorses comfort lying in bed. Labs appear grossly unremarkable, no concerns for an acute infection. Left hip x-ray revealed a nondisplaced periprosthetic fracture through the greater trochanter of the left proximal femur. ED provider (Fer Keene PA-C) spoke with Dr. Vasquez with [facility] orthopedics on-call regarding the patient's injury. Recommendation is for non- surgical, conservative treatment. He will need to use a walker and can weight- bear as tolerated. According to Dr. Vasquez's consultation documentation, he should not be performing too much activity and is going to need placement in rehab or SNF upon discharge. Plan is for routine outpatient f/u with [facility] orthopedics in approximately 2 weeks from now, and repeat x-rays will be completed at that time to ensure proper healing of the fracture. BP was elevated at 178/93 on admission, most likely due to to pain from left hip fracture. BP has since down trended, currently 147/64. Patient received 1 g IV Tylenol, 2 mg IV morphine and 500 mL NSS in the ED. Admission Exam Per Admitting Provider General Appearance: WD/WN, vitals as above, NAD, laying in bed, pleasant, conversing. Head: Normocephalic, atraumatic. Eyes: Normal inspection, PERRL, conjunctivae normal, anicteric sclerae. ENT: External ear and nose normal, oropharynx normal. Neck: Normal visual inspection, trachea midline, no thyromegaly. Respiratory: Normal respiratory effort, lungs clear to auscultation, no wheeze, rales, rhonchi. No accessory muscle use. Cardiovascular: Regular rate, rhythm, no murmur, normal peripheral pulses, no BLE edema. Vessels: No JVD. Chest: Normal inspection of chest. Abdomen/GI: Normal bowel sounds, soft, nontender, no hepatosplenomegaly. Extremities/Musculoskeletal: Tenderness in the left hip region, patient unable to move left hip and leg appropriately secondary to pain. Neurologic: PERRL, EOMI, accommodation nl, no face palsy, no dysarthria, CN's II-XI grossly intact bilaterally. Psychiatric: A+Ox3, no focal deficits. Skin: No rashes, normal color, warm/dry. Discharge Exam General: Alert, oriented. No acute distress, wears sunglasses Skin: No noted rashes or bruises Psych: Appropriate mood and affect Neuro: Difficulty with ambulation or movements HEENT: NC/AT CV: RRR Resp: Breath sounds clear bilaterally, no increased effort of breathing. Abdomen: Soft, nontender, nondistended Extremities: Trace edema in lower extremities bilaterally. Updated Medication List Medication Instructions Recorded Confirmed Type ascorbic acid (vitamin C) 500 mg 500 mg PO DAILY 07/31/22 01/28/24 History tablet (Vitamin C) atorvastatin 40 mg tablet 40 mg PO HS 07/31/22 01/28/24 History calcium carbonate (Calcium 600) 600 mg PO DAILY 07/31/22 01/28/24 History latanoprost 0.005 % eye drops 1 drp ophthalmic (eye) HS 07/31/22 01/28/24 Hist ory linagliptin 5 mg tablet (Tradjenta) 5 mg PO DAILY 07/31/22 01/28/24 History metformin 1,000 mg tablet 1,000 mg PO BID 07/31/22 01/28/24 History netarsudil 0.02 % eye drops 1 drp ophthalmic (eye) DAILY 07/31/22 01/28/24 History (Rhopressa) vitamin B complex 1 tab PO DAILY 07/31/22 01/28/24 History vitamin E 268 mg (400 unit) capsule 268 mg PO DAILY 07/31/22 01/28/24 History polyethylene glycol 3350 17 gram 17 g PO DAILY PRN constipation #30 08/06/22 01/28/24 Rx oral powder packet (Miralax) ea acetaminophen 325 mg capsule 650 mg PO QID PRN Pain 09/03/22 01/28/24 History (Tylenol) captopril 50 mg tablet 50 mg PO BID 09/03/22 01/28/24 History cholecalciferol (vitamin D3) 25 25 mcg PO DAILY 09/03/22 01/28/24 History mcg (1,000 unit) capsule docusate sodium 100 mg capsule 100 mg PO DAILY 09/03/22 01/28/24 History famotidine 20 mg tablet 20 mg PO DAILY 09/03/22 01/28/24 History aspirin 81 mg tablet,delayed 81 mg PO QAM 01/28/24 01/28/24 History release hydrochlorothiazide 25 mg tablet 12.5 mg PO QAM 01/28/24 01/28/24 History magnesium oxide 400 mg (241.3 mg 400 mg PO QAM 01/28/24 01/28/24 History magnesium) tablet multivitamin 1 tab PO .NOON 01/28/24 01/28/24 History omega 3-fuj-kah-fish oil 1,000 mg 1 cap PO .NOON 01/28/24 01/28/24 History (120 mg-180 mg) capsule (Fish Oil) enoxaparin 40 mg/0.4 mL 40 mg (0.4 mL) subcut Q24H #4 mL 02/02/24 Rx subcutaneous syringe (Lovenox) Hospital Stay Data Consultations 01/28/24 16:36 ED Decision to Admit Stat Diagnostic Imagining Performed Hip X-Ray 01/28/24 12:58 LEFT HIP 2 VIEWS CLINICAL HISTORY: Fall. Left hip pain. FINDINGS: AP and frog-leg views of the left hip are compared to study dated 08/04/2022. The skeletal structures are osteopenic. A left hip arthroplasty is in near anatomic alignment. There is a nondisplaced periprosthetic fracture through the greater trochanter of the left proximal femur. No additional acute fracture is identified. The visualized left hemipelvis appears intact. Numerous surgical clips and penile implants project over the pelvis. There is advanced atherosclerotic calcification of the left femoral artery. IMPRESSION: Nondisplaced periprosthetic fracture through the greater trochanter of the left proximal femur. Electronically signed by: Nolan Castellano M.D. 01/28/2024 1:37 PM Shoulder X-Ray 01/29/24 08:00 LEFT SHOULDER 3 VIEWS HISTORY: left shoulder pain COMPARISON: None. FINDINGS: There is no fracture or dislocation. Soft tissues are unremarkable. The left clavicle is intact. Moderate degenerative changes within the left shoulder. Small focus of calcification within the distal supraspinatus tendon. IMPRESSION: 1. No fracture or dislocation within the left shoulder. 2. Moderate osteoarthritis. 3. Supraspinatus calcific tendinitis. ACT 112: Negative or not required by law. Electronically signed by: Joseph Flanagan M.D. 01/29/2024 9:16 AM Pending Results Patient Have Any Pending Studies at Discharge: No Discharge Instructions Given to Patient (Per Discharging Provider) Mr. Johnston, You are being discharged after a left hip fracture. You were seen by the orthopedic surgeon and they recommended the following: - nonsurgical treatment - will need to use a walker and can weight-bear as tolerated - However, should not do too much in the way of activity - Is going to need placement in a rehab or usp facility - Follow-up with [facility] orthopedics approximately 2 weeks after injury with repeat x-rays done at that time Continue with Lovenox for DVT prophylaxis. Total Time Total Time Spent Total Time Spent (In Minutes): 75
== END 2024-02-02 12:58 | DRG 536 ==
LOC: ED 12:25 → SUATTDRO 17:02 → EDINP 17:02 → 3N 20:09

== ENCOUNTER 2024-07-03 00:53 | Inpatient (IN) ==
--- OUTSIDE RECORDS SUMMARY | 2024-07-03 00:57 | External Medical Summary | Continuity of Care Document ---
Author Name Unknown Organization [facility] [id number] Address [address] [place] [id number] Care Team Providers Care Petroleum Geologist Name Role Phone Melia Ji Primary Care Physician [phone] [id number] Date(s): 04/06/24 - 04/06/24 [facility] [address] [employer] [facility] [address] [facility] [address] [place] [id number] Encounter Diagnosis S/P orthopedic surgery, follow-up exam(Discharge Diagnosis) - 04/06/24 S/P right hip fracture(Discharge Diagnosis) - 04/06/24 Discharge Disposition: Home or Self Care Attending Physician: MD Aissatou, Landon A Allergies, Adverse Reactions, Alerts No Known Allergies Medications acetaminophen Start: 02/10/24 9:28:00 AM EDT, 500 mg =, PO, tid Start Date: 02/10/24 Status: Ordered aspirin 81 mg oral delayed release tablet Start: 08/13/22 11:16:00 AM EST, 1 tab, PO, Daily Start Date: 08/13/22 Status: Ordered atorvastatin 40 mg oral tablet Start: 03/24/23 9:17:00 AM EDT Start Date: 03/24/23 Status: Ordered calcium carbonate Start: 08/13/22 11:17:00 AM EST Start Date: 08/13/22 Status: Ordered captopril 50 mg oral tablet Start: 03/24/23 9:13:00 AM EDT Start Date: 03/24/23 Status: Ordered famotidine 20 mg oral tablet Start: 02/10/24 9:29:00 AM EDT, 1 tab, PO, Daily Start Date: 02/10/24 Status: Ordered hydroCHLOROthiazide 25 mg oral tablet Start: 01/02/22 1:44:00 PM EDT, 1 tab, PO, Daily Start Date: 01/02/22 Status: Ordered Jardiance 10 mg oral tablet Start: 04/06/24 10:32:00 AM EDT, 1 tab, PO, Daily, Disp# 30 tab Start Date: 04/06/24 Status: Ordered Jardiance 10 mg oral tablet Start: 02/10/24 9:30:00 AM EDT, 1 tab, PO, Daily, Disp# 30 tab Start Date: 02/10/24 Status: Ordered latanoprost 0.005% ophthalmic solution Start: 02/10/24 9:30:00 AM EDT, 1 drop, both eyes, Daily Start Date: 02/10/24 Status: Ordered lisinopril 20 mg oral tablet Start: 08/13/22 11:17:00 AM EST, 1 tab, PO, Daily Start Date: 08/13/22 Status: Ordered Lovenox 40 mg/0.4 mL injectable solution Start: 02/10/24 9:29:00 AM EDT, 0.4 mL, subQ, Daily Start Date: 02/10/24 Status: Ordered magnesium oxide 400 mg oral capsule Start: 02/10/24 9:30:00 AM EDT, 1 cap, PO, Daily Start Date: 02/10/24 Status: Ordered metFORMIN 1000 mg oral tablet Start: 01/02/22 1:44:00 PM EDT, 1 tab, PO, bid Start Date: 01/02/22 Status: Ordered multivitamin Start: 01/02/22 1:44:00 PM EDT, 1 tab, PO, Daily Start Date: 01/02/22 Status: Ordered Helen-3 Fish Oil Start: 02/10/24 9:31:00 AM EDT, 1,000 mg =, PO, Daily Start Date: 02/10/24 Status: Ordered Rhopressa 0.02% ophthalmic solution Start: 02/10/24 9:31:00 AM EDT, 1 drop, both eyes, qPM Start Date: 02/10/24 Status: Ordered Tradjenta Start: 02/10/24 9:31:00 AM EDT, 5 mg =, PO, Daily Start Date: 02/10/24 Status: Ordered Vitamin B Complex Start: 08/13/22 11:18:00 AM EST Start Date: 08/13/22 Status: Ordered Vitamin C Start: 08/13/22 11:16:00 AM EST Start Date: 08/13/22 Status: Ordered Vitamin D3 Start: 08/13/22 11:17:00 AM EST Start Date: 08/13/22 Status: Ordered Mental Status 04/06/24 Barriers to Learning one year Hearing de ficit, Vision impairment Mandatory Health Literacy Documentation Yes Health Literacy Communication Barriers N ever Primary Language Yakut Problem List Condition Confirmation Course Effective Dates Status Health St atus Informant Diabetes 1 Confirmed Active Hip fracture, right Confirmed Active S/P right hip fracture Confirmed Active S/P orthopedic surgery, follow-up exam Confirmed Active 1Type 2 Diagnosis Diagnosis Type Effective Dates Health Status Clinical Service Informant S/P right hip fracture Discharge Diagnosis 04/06/24 S/P orthopedic surgery, follow-up exam Discharge Diagnosis 04/06/24 Procedures Procedure Date Related Diagnosis Body Site Status Electrodesiccation with curettage 04/26/23 Completed Mohs' micrographic surgery 03/24/23 Completed Shave biopsy and cauterization of skin 03/24/23 Completed Shave biopsy 01/13/23 Completed Hip replacement 2011 Completed Social History Social History Type Response Smoking Status Never smoked cigaret marcello Sex Sex Representation Male (finding) Ortho Outpt Note * MD Aissatou, Landon A: MODIFY Mary Chatman: PERFORM Event Display: Ortho Outpt Note Authored Date: Name:JORDANA DICKSON Patient Number:[id number] :1935 Date of Service:04/06/2024 CHIEF COMPLAINT:Follow-up left hip fracture; DOI: 01/28/2024 HPI:[id number] presents today for a left hip greater trochanteric fracture, which occurred afterbeing knocked over by a doorwhile using his walker. Patient is following up with me in August of this year for his right hip ORIFand has had no issues with this. He has been ambulating with a walker and is able to do so without difficulty or pain.Patient is staying at [facility].Today he rates his pain as a 0/10. ROS:Refer to the HPI. PHYSICAL EXAM: Focusing on the patient'sleftlower extremity: Sensation to light touch is intact distally Motor to: gastroc soleus, tibialis anterior, EHL nerves are 5/5 No pain with gentle ROM of the hip flexion, internal and external rotation No concerns regarding incision No tenderness to palpation over the lateral aspect of the hip Calf is soft and nontender RADIOGRAPHY: AP pelvis, AP and lateralviews of theleft hipobtained today and personally interpreted by me showno displaced greater trochanteric fracture with prior left hip hemiarthroplasty. Left hip greater trochanterfracture remains nondisplaced. Incidental findings ofmultiple metallic clips in the pelvisand noted penile implants. Evidence of prior ORIF on the right hip, fracture is well-healed withcallus formation and consolidation. The femoral ahead appears viable. There are degenerativechanges in the right hip and lower lumbar spine. IMPRESSION: 88-year-old male 1) Left hip greater trochanteric fracture, DOI 01/28/2024, nondisplaced, subsequent visit, routine healing, doing well 2) S/pright hip ORIF with trochanteric nail, DOS 07/31/2022, doing as well as expected GOAL: Return to normal activity PLAN: - RICE. -Tylenol for pain. -Continue walker for ambulatory assistance. Order placed forrollator with brakes. Activities are as tolerated Follow-up as scheduled inDecember 2023with x-rays of the right hip The patient understood all my instructions and explanation; all their questions were satisfactorilyaddressed. ATTESTATION: IMary, scribing forand in the presence of, Landon Reyez, on this date,04/06/2024 10:25:58. I, Dr. Reyez, saw and examined the patient with Mary Chatman acting as my scribe. I reviewed the note and agree with the documented findings and the plan of care I developed. Electronic Signature on File Electronically Reviewed/Signed by: Mary Chatman Author Signature Dt/Tm:04/06/2024 11:21 AM Electronically Reviewed/Signed by: Landon Reyez MD Cosigner Signature Dt/Tm: 04/06/2024 01:27 PM [facility] Train[facility] Department of Orthopaedics and Rehabilitation [facility] [address], [place] [address] [place] Patient Care team information Care Team Personnel Name: MD Margy, Melia Miranda Position: Referring DIRECT Member Role: Primary Care Provider Address: [address] [place] [id number] Care Team Related Persons Name: BORIS DICKSON
--- NOTE | 2024-07-03 01:28 | Emergency Department Note ---
Impression & Plan Ambulatory dysfunction, Fall, Knee pain, left, Acute UTI ED Provider Note NAME: JORDANA DICKSON AGE: 89 SEX: M : 1935 ARRIVES VIA: Ambulance INFORMANT: Patient ED PROVIDER(S): Will Manriquez MD CHIEF COMPLAINT: Left knee pain, fall, ambulatory dysfunction. PLAN: Disposition: Admit MEDICAL DECISION MAKING: The patient is a pleasant 89-year-old gentleman with a past medical history of mild cognitive impairment, hypertension, hyperlipidemia, peripheral neuropathy who presents to Emergency Department via EMS for evaluation of left knee pain which occurred tonight after the patient fell onto his left knee when he was bending over to change the toilet paper roll. Patient does walk normally with a walker. Patient was unable to get up but EMS was called and helped the patient stand and was able to walk initially earlier tonight and so he was not brought to the hospital. However later on in the evening patient attempted to get up and ambulate but could not bear weight and so they present for evaluation. The any head strike or loss of consciousness. Patient has been in his recent state of health without any recent illness denies fevers, chills, cough congestion, GI or symptoms. On evaluation the patient is uncomfortable in no acute distress, afebrile stable vital signs. He has tenderness of the posterior aspect of left knee with pain with active extension and flexion without gross deformity. EKG without overt acute ischemia. X-ray of the left knee and pelvis negative for fracture or dislocation per my preliminary independent interpretation. Given patient's inability to ambulate CT of the knee was obtained to exclude occult fracture and this was negative for fracture though degenerative changes are noted. WBC and platelets within normal limits. H/H similar to prior range values. Chemistry without metabolic acidosis. LFTs are unremarkable. CPK within normal limits. UA is suggestive of infection with positive nitrites, WBCs and 4+ bacteria. Most recent culture data for the patient was from a wound in 2021 was positive for ESBL Proteus Mirabilis and so empiric treatment initiated with IV Invanz. Patient and son at bedside agree with plan for admission for further management including PT/OT assessment given ambultory dysfunction. [facility] the patient for [facility]. Further management per admitting team. Triage Nursing notes reviewed and agree them. Prior/external medical records reviewed Vital Signs: reviewed Differential diagnosis: Infection, dehydration, metabolic abnormality, hypo/hyperglycemia, electrolyte disturbance, anemia, hypoxia, cardiac sources, intracerebral event, toxicologic, neurologic, as well as other pathologies. ER treatment provided: See below. Diagnostics interpreted by me: ECG: Sinus bradycardia, first-degree AV block, 58 bpm, left axis deviation, no overt ST ovation or depression, QTc 416, QRS 98. Cardiac Monitoring: An order for continuous cardiac monitoring was placed and demonstrated Sinus bradycardia, first-degree AV block, 58 bpm. Laboratory studies: See below Imaging studies: See below Consultation(s): Case was discussed with Dr. Rodgers, [facility] hospitalist, who will evaluate the patient for admission. HPI: The patient is a pleasant 89-year-old gentleman with a past medical history of mild cognitive impairment, hypertension, hyperlipidemia, peripheral neuropathy who presents to Emergency Department via EMS for evaluation of left knee pain which occurred tonight after the patient fell onto his left knee when he was bending over to change the toilet paper roll. Patient does walk normally with a walker. Patient was unable to get up but EMS was called and helped the patient stand and was able to walk initially earlier tonight and so he was not brought to the hospital. However later on in the evening patient attempted to get up and ambulate but could not bear weight and so they present for evaluation. The any head strike or loss of consciousness. Patient has been in his recent state of health without any recent illness denies fevers, chills, cough congestion, GI or symptoms. ROS: See above HPI for pertinent positives & negatives. A total of 10 systems reviewed and were otherwise negative. VITALS:See Below PHYSICAL EXAMINATION: GENERAL: Awake, alert, well-appearing, in no distress HENT: Normocephalic, atraumatic. Oropharynx unremarkable. EYES: Normal conjunctiva. Sclera non-icteric. NECK: Supple. No nuchal rigidity. FROM. No JVD. RESPIRATORY: Clear to auscultation. CARDIAC: Regular rate, normal rhythm. Extremities warm and well perfused. Pulses equal. ABDOMEN: Soft, non-distended. No tenderness to palpation. No rebound or guarding. No masses.. MUSCULOSKELETAL: Chest examination reveals no tenderness. The back is symmetrical on inspection without obvious abnormality. There is no CVA tenderness to palpation. Tenderness of the posterior aspect of left knee with pain with active extension and flexion without gross deformity. LOWER EXTREMITIES: Calves are equal size bilaterally and non-tender. No edema. No discoloration. NEURO: No focal sensory or motor deficits noted. SKIN: No rash or jaundice noted. 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 Recurrent falls 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 Incontinence Legally blind History of hip fracture (~2021) History of prostate cancer H/O breast disorder in male Surgical History Status post implantation of artificial urinary sphincter Hx of appendectomy History of penile implant History of total left hip replacement Social History Smoking Status: Never smoker Do You Dip or Chew Tobacco: No; Hx Alcohol Use: Yes Alcohol type: wine Hx Substance Use: No Preferred Language: [place]an Communication Ability: Effective Visual Impairment: Blindness Hearing Ability: Hard of Hearing Rejector Required: No Beliefs That Will Affect Care: None marital status: Current Living Situation: Spouse Current Living Situation Comment: lives in [facility] current occupational status: retired Feels Safe at Home: Yes Childhood Exposure to Second-Hand Smoke: No Diet: regular Gender Identity: Male Assistive Devices: Walker Allergies Allergies Allergy/AdvReac Type Severity Reaction Status Date / Time No Known Allergies Allergy Verified 01/25/24 13:11 Home Meds Home Medications Medication Instructions Recorded Confirmed ascorbic acid (vitamin C) 500 mg 500 mg PO DAILY 07/31/22 01/28/24 tablet (Vitamin C) atorvastatin 40 mg tablet 40 mg PO HS 07/31/22 01/28/24 calcium carbonate (Calcium 600) 600 mg PO DAILY 07/31/22 01/28/24 latanoprost 0.005 % eye drops 1 drp ophthalmic (eye) HS 07/31/22 01/28/24 linagliptin 5 mg tablet (Tradjenta) 5 mg PO DAILY 07/31/22 01/28/24 metformin 1,000 mg tablet 1,000 mg PO BID 07/31/22 01/28/24 netarsudil 0.02 % eye drops 1 drp ophthalmic (eye) DAILY 07/31/22 01/28/24 (Rhopressa) vitamin B complex 1 tab PO DAILY 07/31/22 01/28/24 vitamin E 268 mg (400 unit) capsule 268 mg PO DAILY 07/31/22 01/28/24 acetaminophen 325 mg capsule 650 mg PO QID PRN Pain 09/03/22 01/28/24 (Tylenol) captopril 50 mg tablet 50 mg PO BID 09/03/22 01/28/24 cholecalciferol (vitamin D3) 25 25 mcg PO DAILY 09/03/22 01/28/24 mcg (1,000 unit) capsule docusate sodium 100 mg capsule 100 mg PO DAILY 09/03/22 01/28/24 famotidine 20 mg tablet 20 mg PO DAILY 09/03/22 01/28/24 aspirin 81 mg tablet,delayed 81 mg PO QAM 01/28/24 01/28/24 release hydrochlorothiazide 25 mg tablet 12.5 mg PO QAM 01/28/24 01/28/24 magnesium oxide 400 mg (241.3 mg 400 mg PO QAM 01/28/24 01/28/24 magnesium) tablet multivitamin 1 tab PO .NOON 01/28/24 01/28/24 omega 5-btl-[id number]-fish oil 1,000 mg 1 cap PO .NOON 01/28/24 01/28/24 (120 mg-180 mg) capsule (Fish Oil) Previous Rx's Medication Instructions Recorded polyethylene glycol 3350 17 gram 17 g PO DAILY PRN constipation #30 08/06/22 oral powder packet (Miralax) ea enoxaparin 40 mg/0.4 mL 40 mg (0.4 mL) subcut Q24H #4 mL 02/02/24 subcutaneous syringe (Lovenox) Results & Data (ED) Vital Signs Vital Signs - 24 hr 07/03/24 01:01 07/03/24 01:21 07/03/24 01:25 Temperature 36.6 C 36.6 C Temperature Source Oral Oral Pulse Rate 63 66 Pulse Rate [Right] 66 Pulse Rhythm Regular Pulse Rhythm [Right] Regular Pulse Strength Normal Pulse Strength [Right] Normal Respiratory Rate 16 16 Respiratory Effort / Characteristics Non-Labored Spontaneous Non-Labored Spontaneous Respiratory Depth Normal Normal Respiratory Pattern Regular Regular Blood Pressure 141/55 H Blood Pressure [Left Arm] 141/55 H Blood Pressure Mean 83 Blood Pressure Mean [Left Arm] 83 Blood Pressure Position Lying Blood Pressure Position [Left Arm] Lying Pulse Oximetry 97 97 Oxygen Delivery Method Room Air Room Air Sepsis Recent Fever Within 48 Hours No Sepsis New/Unexplained Change in Mental Status N/A Sepsis Action Taken by Nursing No Action Required 07/03/24 01:46 07/03/24 03:00 07/03/24 04:56 Temperature Temperature Source Pulse Rate 57 L Pulse Rate [Right] 57 L Pulse Rhythm Pulse Rhythm [Right] Regular Pulse Strength Pulse Strength [Right] Normal Respiratory Rate 16 Respiratory Effort / Characteristics Non-Labored Spontaneous Respiratory Depth Normal Respiratory Pattern Regular Blood Pressure Blood Pressure [Left Arm] 122/60 Blood Pressure Mean Blood Pressure Mean [Left Arm] 80 Blood Pressure Position Blood Pressure Position [Left Arm] Lying Pulse Oximetry 94 Oxygen Delivery Method Room Air Room Air Sepsis Recent Fever Within 48 Hours Sepsis New/Unexplained Change in Mental Status Sepsis Action Taken by Nursing Laboratory Data Attestation: I reviewed the patient's lab results. 07/03/24 03:53 07/03/24 01:15 Lab Results 07/03/24 07/03/24 07/03/24 Range/Units 01:15 02:50 03:53 WBC Cancelled 10.11 RBC Cancelled 3.99 L Hgb Cancelled 12.2 L Hct Cancelled 37.8 L MCV Cancelled 94.7 MCH Cancelled 30.6 MCHC Cancelled 32.3 RDW Std Deviation Cancelled 46.2 RDW Coeff of [place] Cancelled 13.2 Plt Count Cancelled 240 MPV Cancelled 9.5 Immature Gran % (Auto) Cancelled 0.5 Neut % (Auto) Cancelled 67.9 Lymph % (Auto) Cancelled 18.0 [place] % (Auto) Cancelled 11.4 Eos % (Auto) Cancelled 1.8 Baso % (Auto) Cancelled 0.4 Neut # (Auto) Cancelled 6.87 H Lymph # (Auto) Cancelled 1.82 [place] # (Auto) Cancelled 1.15 H Eos # (Auto) Cancelled 0.18 Baso # (Auto) Cancelled 0.04 Immature Gran # (Auto) Cancelled 0.05 Absolute Nucleated RBC Cancelled Nucleated RBC % (auto) Cancelled Neutrophils % (Manual) Cancelled Band Neutrophils % Cancelled Lymphocytes % (Manual) Cancelled Prolymphocyte % Cancelled Reactive Lymphs % (Man) Cancelled Monocytes % (Manual) Cancelled Eosinophils % (Manual) Cancelled Basophils % (Manual) Cancelled Metamyelocytes % (Man) Cancelled Myelocytes % (Man) Cancelled Promyelocytes % (Man) Cancelled Blast Cells % (Manual) Cancelled Plasma Cell % (Manual) Cancelled Other Cells % Cancelled Nucleated RBC % Cancelled Neutrophils # (Manual) Cancelled Band Neutrophils # Cancelled Total Absolute Neuts Cancelled Lymphocytes # (Manual) Cancelled Prolymphocyte # Cancelled Reactive Lymphs # Cancelled Total Abs Lymphocytes Cancelled Monocytes # (Manual) Cancelled Eosinophils # (Manual) Cancelled Basophils # (Manual) Cancelled Metamyelocytes # (Man) Cancelled Myelocytes # (Manual) Cancelled Promyelocytes # (Man) Cancelled Blast Cells # (Man) Cancelled Plasma Cell # (Manual) Cancelled Other Cells # Cancelled Nucleated RBCs # (Man) Cancelled Hypersegmented Neuts Cancelled Hyposegmented Neuts Cancelled Hypogranular Neuts Cancelled Large Granular Lymphs Cancelled # Lrg Granular Lymphs Cancelled Hairy Cells Cancelled Smudge Cells Cancelled Toxic Granulation Cancelled Toxic Vacuolation Cancelled Dohle Bodies Cancelled Mora Rods Cancelled Platelet Estimate Cancelled Hypogranular Platelets Cancelled Giant Platelets Cancelled Platelet Satelliting Cancelled RBC Morphology Cancelled Polychromasia Cancelled Hypochromasia Cancelled Poikilocytosis Cancelled Basophilic Stippling Cancelled Anisocytosis Cancelled Microcytosis Cancelled Macrocytosis Cancelled Spherocytes Cancelled Pappenheimer Bodies Cancelled Sickle Cells Cancelled Target Cells Cancelled Tear Drop Cells Cancelled Ovalocytes Cancelled Stomatocytes Cancelled [place] Bodies Cancelled Echinocytes Cancelled Acanthocytes (Spur) Cancelled Rouleaux Cancelled RBC Agglutinates Cancelled Schistocytes Cancelled Sezary Cell Cancelled PT 10.9 (9.0-12.0) Seconds INR 1.0 (0.9-1.1) Sodium 138 (136-145) mmol/L Potassium 4.8 (3.5-5.1) mmol/L Chloride 100 (98-107) mmol/L Carbon Dioxide 29 (21-32) mmol/L Anion Gap 9 (3-11) BUN 29 H (6-23) mg/dl Creatinine 1.04 (0.6-1.4) mg/dl Est Cr Clr Drug Dosing 54.9 ml/min eGFR 69.49 BUN/Creatinine Ratio 27.9 H (10-20) Glucose 190 H (70-99(Fasting)) mg/dl Calcium 9.4 (8.6-10.3) mg/dl Total Bilirubin 0.3 (0.2-1.0) mg/dl AST 18 (13-39) U/L ALT 11 (7-52) U/L Alkaline Phosphatase 73 (34-104) U/L Total Creatine Kinase 43 (30-223) U/L Total Protein 7.1 (6.0-8.3) gm/dl Albumin 3.9 (3.4-5.0) gm/dl Globulin 3.2 (2.5-4.0) gm/dl Albumin/Globulin Ratio 1.2 (0.9-2) Urine Color Yellow Urine Appearance Clear (Clear) Urine pH 5.5 (4.5-7.5) Ur Specific [place] 1.027 (1.000-1.030) Urine Protein Negative (Negative) Urine Glucose (UA) 3+ H (Negative) Urine Ketones Trace H (Negative) Urine Blood Negative (Negative) Urine Nitrite Positive A (Negative) Urine Bilirubin Negative (Negative) Urine Urobilinogen Negative (Negative) Ur Leukocyte Esterase 1+ H (Negative) Urine WBC (Auto) 21-50 H (0-5) /hpf Urine RBC (Auto) 0-2 (0-2) /hpf U Hyaline Cast (Auto) 0-2 (0-2) /lpf U Epithel Cells (Auto) 0-2 (0-2) /hpf Urine Bacteria (Auto) 4+ H (None Seen) Blood Parasites ID Cancelled Administered Medications Discontinued Medications Acetaminophen (Acetaminophen 500 Mg Tab) 1,000 mg PO NOW STA Stop: 07/03/24 01:59 Last Admin: 07/03/24 02:06 Dose: 1,000 mg Documented By: KIRAN Acetaminophen (Ofirmev) 1,000 mg in 100 mls @ 400 mls/hr IV NOW STA Stop: 07/03/24 01:29 Last Admin: 07/03/24 02:08 Dose: Not Given Documented By: KIRAN Ertapenem (Invanz 1000mg) 1,000 mg in 10 mls @ 2 mls/min IV NOW STA Stop: 07/03/24 03:59 Last Admin: 07/03/24 04:28 Dose: 2 mls/min Documented By: KIRAN Imaging Data Radiologist's Impression: Knee CT 07/03/24 01:58 Exam(s): CT LEFT KNEE Without Contrast EXAM: CT Left Lower Extremity Without Intravenous Contrast, Knee CLINICAL HISTORY: Reason for exam: pain fall. TECHNIQUE: Axial computed tomography images of the left knee without intravenous contrast. CTDI is 24.91 mGy and DLP is 546.58 mGy-cm. Automated exposure control was utilized for the study. A dose lowering technique was utilized adhering to the principles of ALARA. COMPARISON: No relevant prior studies available. FINDINGS: Bones/joints: No acute fracture. No dislocation. There are mild hypertrophic degenerative changes. There is osteopenia. Soft tissues: No joint effusion is noted. Vascular calcifications are seen. IMPRESSION: Hypertrophic degenerative changes with osteopenia. If further evaluation is clinically necessary, consider correlation with MRI. Electronically signed by: Hemanth Byrd MD 07/03/24 02:50 AM Discharge Plan Visit Data Chief Complaint: Knee Injury/Pain Stated Complaint: L KNEE PAIN ED Provider: Will Manriquez Discharge Problem: Ambulatory dysfunction, Fall, Knee pain, left, Acute UTI Forms Stand Alone Forms: My [facility] [employer] Prescriptions Prescriptions: No Action docusate sodium 100 mg capsule 100 mg PO DAILY Rx Instructions: isnt on it but and son both think he would benefit famotidine 20 mg tablet 20 mg PO DAILY acetaminophen [Tylenol] 325 mg capsule 650 mg PO QID PRN (Reason: Pain) cholecalciferol (vitamin D3) 25 mcg (1,000 unit) capsule 25 mcg PO DAILY latanoprost 0.005 % drops 1 drp ophthalmic (eye) HS atorvastatin 40 mg tablet 40 mg PO HS calcium carbonate [Calcium 600] 600 mg calcium (1,500 mg) Tablet 600 mg PO DAILY Rx Instructions: per 1200 ascorbic acid (vitamin C) [Vitamin C] 500 mg Tablet 500 mg PO DAILY metformin 1,000 mg tablet 1,000 mg PO BID vitamin B complex Tablet 1 tab PO DAILY vitamin E 268 mg (400 unit) Capsule 268 mg PO DAILY Tradjenta 5 mg tablet 5 mg PO DAILY Rhopressa 0.02 % drops 1 drp ophthalmic (eye) DAILY polyethylene glycol 3350 [Miralax] 17 gram Powder In Packet 17 g PO DAILY PRN (Reason: constipation) Qty: 30 0RF captopril 50 mg tablet 50 mg PO BID multivitamin Tablet 1 tab PO .NOON aspirin 81 mg tablet,delayed release (DR/EC) 81 mg PO QAM magnesium oxide 400 mg (241.3 mg magnesium) tablet 400 mg PO QAM hydrochlorothiazide 25 mg tablet 12.5 mg PO QAM omega 4-[id number]-bfk-fish oil [Fish Oil] 1,000 mg (120 mg-180 mg) capsule 1 cap PO .NOON enoxaparin [Lovenox] 40 mg/0.4 mL Syringe 40 mg subcut Q24H Qty: 4 0RF Referrals Referrals: Melia Ji MD [Primary Care Provider] - Discharge Problem: Fall Qualifiers: Encounter type: initial encounter Qualified Code(s): W19.XXXA - Unspecified fall, initial encounter Knee pain, left Qualifiers: Chronicity: acute Qualified Code(s): M25.562 - Pain in left knee
[2024-07-03] MEDS: ACETAMINOPHEN 500 MG TAB PO STA (02:06)
[2024-07-03] MEDS: ACETAMINOPHEN 1,000 MG/100 ML VIAL IV STA (02:08)
--- NOTE | 2024-07-03 02:52 | CT Scan Report ---
Exam(s): CT LEFT KNEE Without Contrast EXAM: CT Left Lower Extremity Without Intravenous Contrast, Knee CLINICAL HISTORY: Reason for exam: pain fall. TECHNIQUE: Axial computed tomography images of the left knee without intravenous contrast. CTDI is 24.91 mGy and DLP is 546.58 mGy-cm. Automated exposure control was utilized for the study. A dose lowering technique was utilized adhering to the principles of ALARA. COMPARISON: No relevant prior studies available. FINDINGS: Bones/joints: No acute fracture. No dislocation. There are mild hypertrophic degenerative changes. There is osteopenia. Soft tissues: No joint effusion is noted. Vascular calcifications are seen. IMPRESSION: Hypertrophic degenerative changes with osteopenia. If further evaluation is clinically necessary, consider correlation with MRI. Electronically signed by: Hemanth Byrd MD 07/03/24 02:50 AM
[2024-07-03 03:13] LABS: Albumin Globulin Ratio 1.2 (0.9-2); Albumin Level 3.9 gm/dl (3.4-5.0); BUN Creatinine Ratio 27.9 (10-20); Bilirubin,Total 0.3 mg/dl (0.2-1.0); Calcium 9.4 mg/dl (8.6-10.3); Creatinine Clr Calc Pharmacy 54.9 ml/min; Globulin 3.2 gm/dl (2.5-4.0); Total Protein 7.1 gm/dl (6.0-8.3)
[2024-07-03 03:16] LABS: Prothrombin Time 10.9 Seconds (9.0-12.0)
[2024-07-03 03:17] LABS: Appearance Urine Clear (Clear); Bacteria Urine Automated 4+ (None Seen); Bilirubin Urine Negative (Negative); Blood Urine Negative (Negative); Cast Urine Automated 0-2 /lpf (0-2); Color Urine Yellow; Epithelial Cell Urine Auto 0-2 /hpf (0-2); Glucose Urine UA 3+ (Negative); Ketones Urine Trace (Negative); Leukocyte Esterase Urine 1+ (Negative); Nitrite Urine Positive (Negative); Protein Urine Negative (Negative); RBC Urine Automated 0-2 /hpf (0-2); Specific Gravity Urine 1.027 (1.000-1.030); Urobilinogen Urine Negative (Negative); WBC Urine Automated 21-50 /hpf (0-5); pH Urine 5.5 (4.5-7.5)
[2024-07-03 03:31] LABS: Potassium 4.8 mmol/L (3.5-5.1)
[2024-07-03 04:12] LABS: Basophils # (auto) 0.04 K/uL (0.00-0.20); Basophils % (auto) 0.4 %; Eosinophils # (auto) 0.18 K/uL (0.00-0.50); Eosinophils % (auto) 1.8 %; Hematocrit (blood only) 37.8 % (42.0-52.0); Hemoglobin 12.2 g/dl (14.0-18.0); Immature Granulocytes # (auto) 0.05 K/uL (0.01-0.20); Immature Granulocytes % (auto) 0.5 %; Lymphocytes # (auto) 1.82 K/uL (1.20-3.40); Mean Corpuscular Hemoglobin 30.6 pg (25.0-34.0); Mean Corpuscular Hgb Conc 32.3 g/dL (32.0-36.0); Mean Corpuscular Volume 94.7 fL (80.0-100.0); Mean Platelet Volume 9.5 fL (9.4-12.4); Monocytes # (auto) 1.15 K/uL (0.11-0.59); Monocytes % (auto) 11.4 %; Neutrophils # (auto) 6.87 K/uL (1.40-6.50); Neutrophils % (auto) 67.9 %; Platelet Count 240 K/uL (130-400); RDW Coefficient of Variation 13.2 % (11.5-14.5); RDW Standard Deviation 46.2 fL (36.4-46.3); Red Blood Count 3.99 M/uL (4.70-6.10); White Blood Count 10.11 K/ul (4.8-10.8)
[2024-07-03] MEDS: ERTAPENEM 1000MG 1,000 MG/10 ML SYR IV STA (04:28)
--- NOTE | 2024-07-03 06:31 | History & Physical Report ---
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 Patient states ambulates with a walker. He was in the bathroom and when he was trying to reach toilet paper he fell on his knees. Patient says he was able to get up and go to the living room and sit down. When he fell his medically alert went off and his said okay for EMS to come. Per patient initially was able to walk but later he was not able to get up and walk and EMS brought him to the hospital. Patient denies any headache. Says he did not hit his head. No runny nose or sore throat or cough. No fevers. His appetite is okay. Denies any chest pain or shortness of breath. Denies nausea. Denies abdominal pain. Normal bowel and bladder movements. Says he has some pain in the left knee but able to move it okay. In January 2024 patient had a fall and had nondisplaced periprosthetic fracture through the greater trochanter of the left proximal femur and evaluated by Ortho and nonsurgical treatment recommended and patient was discharged to [facility] at that time Fall Fell on the knees CT scan okay Follow reports of pelvic x-ray and the x-ray Pain control PT OT Acute UTI Possible contributing to his fall History of ESBL Empiric Invanz Follow cultures Diabetes Hold home p.o. medications Lantus 5 units daily and sliding scale Close monitor. Follow HbA1c levels Hypertension Continue hydrochlorothiazide, captopril Will monitor Hyperlipidemia On statin History of bradycardia First-degree AV block Incomplete right bundle branch block To refrain from AV elian blocking agents per cardiology Mild cognitive impairment Monitor for delirium Legally blind DVT prophylaxis Heparin subcu Disposition Medical floor Full code. 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 Patient states ambulates with a walker. He was in the bathroom and when he was trying to reach toilet paper he fell on his knees. Patient says he was able to get up and go to the living room and sit down. When he fell his medically alert went off and his said okay for EMS to come. Per patient initially was able to walk but later he was not able to get up and walk and EMS brought him to the hospital. Patient denies any headache. Says he did not hit his head. No runny nose or sore throat or cough. No fevers. His appetite is okay. Denies any chest pain or shortness of breath. Denies nausea. Denies abdominal pain. Normal bowel and bladder movements. Says he has some pain in the left knee but able to move it okay. In January 2024 patient had a fall and had nondisplaced periprosthetic fracture through the greater trochanter of the left proximal femur and evaluated by Ortho and nonsurgical treatment recommended and patient was discharged to [facility] at that time Past medical history as mentioned above. Past surgical history. Appendectomy. Removal of inflatable urethral bladder n yuniel. Left total hip replacement. Social history. . No smoking. No alcohol use. No drug use. Family history no family history on file. Allergies Allergy/AdvReac Type Severity Reaction Status Date / Time No Known Allergies Allergy Verified 01/25/24 13:11 Home Medications Medication Instructions Recorded Confirmed Type ascorbic acid (vitamin C) 500 mg 500 mg PO DAILY 07/03/24 07/03/24 History tablet aspirin 81 mg tablet,delayed 81 mg PO DAILY 07/03/24 07/03/24 History release atorvastatin 40 mg tablet 40 mg PO DAILY 07/03/24 07/03/24 History calcium 600 mg (as 1 tab PO DAILY 07/03/24 07/03/24 History carbonate)-vitamin D3 10 mcg (400 unit) tablet captopril 50 mg tablet 50 mg PO BID 07/03/24 07/03/24 History cholecalciferol (vitamin D3) 25 25 mcg PO DAILY 07/03/24 07/03/24 History mcg (1,000 unit) tablet (Vitamin D3) empagliflozin 10 mg tablet 10 mg PO DAILY 07/03/24 07/03/24 History (Jardiance) famotidine 20 mg tablet 20 mg PO BID 07/03/24 07/03/24 History hydrochlorothiazide 25 mg tablet 12.5 mg PO DAILY 07/03/24 07/03/24 History latanoprost 0.005 % eye drops 1 drp OPB HS 07/03/24 07/03/24 History linagliptin 5 mg tablet (Tradjenta) 5 mg PO DAILY 07/03/24 07/03/24 History magnesium oxide 400 mg (241.3 mg 400 mg PO DAILY 07/03/24 07/03/24 History magnesium) tablet metformin 1,000 mg tablet 1,000 mg PO BID 07/03/24 07/03/24 History netarsudil 0.02 % eye drops 1 drp OPB HS 07/03/24 07/03/24 History (Rhopressa) omega 0-pmu-qhl-fish oil 1,000 mg 1 cap PO DAILY 07/03/24 07/03/24 History (120 mg-180 mg) capsule (Fish Oil) vitamin B complex-folic acid 0.4 1 tab PO DAILY 07/03/24 07/03/24 History mg tablet (B Complex 1 (with folic acid)) Past Med/Surg History Problem List (Updated 07/03/24 @ 09:08 by Kianna King) Fall Acute UTI (Acute) Knee pain, left (Acute) Ambulatory dysfunction (Acute) Mild cognitive impairment Diabetic macular edema, both eyes Diabetic retinopathy of both eyes GERD (gastroesophageal reflux disease) Left hip pain Fall (Acute) Sally-prosthetic fracture around prosthetic hip (Acute) Diabetic peripheral neuropathy associated with type 2 diabetes mellitus Hyperlipidemia HTN (hypertension) Medical History Renal lesion COVID-19 Personal history of diabetic foot ulcer Stage III pressure ulcer of left heel Recurrent falls 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 Incontinence Legally blind History of hip fracture (~2021) History of prostate cancer H/O breast disorder in male Surgical History Status post implantation of artificial urinary sphincter Hx of appendectomy History of penile implant History of total left hip replacement Social History Smoking Status: Never smoker Do You Dip or Chew Tobacco: No; Hx Alcohol Use: Yes Alcohol type: wine Hx Substance Use: No Preferred Language: Indonesian Communication Ability: Effective Visual Impairment: Blindness Hearing Ability: Hard of Hearing [employer] Steward Required: No Beliefs That Will Affect Care: None marital status: Current Living Situation: Spouse Current Living Situation Comment: lives in [facility] current occupational status: retired Feels Safe at Home: Yes Childhood Exposure to Second-Hand Smoke: No Diet: regular Gender Identity: Male Assistive Devices: Walker Review of Systems Review of Systems: All systems reviewed & are unremarkable except as noted in HPI & below Physical Exam Physical Exam: General- Not in distress Head- atraumatic Eyes- PERRL. ENT- oropharynx clear Neck- supple, no JVD. Lungs- clear to auscultation no wheezing or crackles Heart- regular rate and rhythm; no murmur, no gallop. Abdomen- normal bowel sounds, soft, nontender, no distension. Extremities- no pretibial edema, no erythema seen. Able to move his lower extremities Neuro- alert, oriented PERRL, no facial palsy; no dysarthria; moves extremities Results & Data Results & Data Vital Signs (Past 12 Hours) Vital Signs Temp Pulse Pulse Resp BP BP Pulse Ox 07/03/24 05:00 61 18 140/74 96 07/03/24 04:56 57 L 07/03/24 03:00 57 L 16 122/60 94 07/03/24 01:46 07/03/24 01:25 36.6 C 66 16 141/55 H 97 07/03/24 01:21 36.6 C 66 16 141/55 H 97 07/03/24 01:01 63 O2 Del Method 07/03/24 05:00 Room Air 07/03/24 04:56 07/03/24 03:00 Room Air 07/03/24 01:46 Room Air 07/03/24 01:25 Room Air 07/03/24 01:21 Room Air 07/03/24 01:01 Diagnostic Findings Laboratory Results WBC 10.11 K/ul (4.8-10.8) 07/03/24 03:53 RBC 3.99 M/uL (4.70-6.10) L 07/03/24 03:53 Hgb 12.2 g/dl (14.0-18.0) L 07/03/24 03:53 Hct 37.8 % (42.0-52.0) L 07/03/24 03:53 MCV 94.7 fL (80.0-100.0) 07/03/24 03:53 MCH 30.6 pg (25.0-34.0) 07/03/24 03:53 MCHC 32.3 g/dL (32.0-36.0) 07/03/24 03:53 RDW Std Deviation 46.2 fL (36.4-46.3) 07/03/24 03:53 RDW Coeff of [place] 13.2 % (11.5-14.5) 07/03/24 03:53 Plt Count 240 K/uL (130-400) 07/03/24 03:53 MPV 9.5 fL (9.4-12.4) 07/03/24 03:53 Immature Gran % (Auto) 0.5 % 07/03/24 03:53 Neut % (Auto) 67.9 % 07/03/24 03:53 Lymph % (Auto) 18.0 % 07/03/24 03:53 [place] % (Auto) 11.4 % 07/03/24 03:53 Eos % (Auto) 1.8 % 07/03/24 03:53 Baso % (Auto) 0.4 % 07/03/24 03:53 Neut # (Auto) 6.87 K/uL (1.40-6.50) H 07/03/24 03:53 Lymph # (Auto) 1.82 K/uL (1.20-3.40) 07/03/24 03:53 [place] # (Auto) 1.15 K/uL (0.11-0.59) H 07/03/24 03:53 Eos # (Auto) 0.18 K/uL (0.00-0.50) 07/03/24 03:53 Baso # (Auto) 0.04 K/uL (0.00-0.20) 07/03/24 03:53 Immature Gran # (Auto) 0.05 K/uL (0.01-0.20) 07/03/24 03:53 Absolute Nucleated RBC Cancelled 07/03/24 01:15 Nucleated RBC % (auto) Cancelled 07/03/24 01:15 Neutrophils % (Manual) Cancelled 07/03/24 01:15 Band Neutrophils % Cancelled 07/03/24 01:15 Lymphocytes % (Manual) Cancelled 07/03/24 01:15 Prolymphocyte % Cancelled 07/03/24 01:15 Reactive Lymphs % (Man) Cancelled 07/03/24 01:15 Monocytes % (Manual) Cancelled 07/03/24 01:15 Eosinophils % (Manual) Cancelled 07/03/24 01:15 Basophils % (Manual) Cancelled 07/03/24 01:15 Metamyelocytes % (Man) Cancelled 07/03/24 01:15 Myelocytes % (Man) Cancelled 07/03/24 01:15 Promyelocytes % (Man) Cancelled 07/03/24 01:15 Blast Cells % (Manual) Cancelled 07/03/24 01:15 Plasma Cell % (Manual) Cancelled 07/03/24 01:15 Other Cells % Cancelled 07/03/24 01:15 Nucleated RBC % Cancelled 07/03/24 01:15 Neutrophils # (Manual) Cancelled 07/03/24 01:15 Band Neutrophils # Cancelled 07/03/24 01:15 Total Absolute Neuts Cancelled 07/03/24 01:15 Lymphocytes # (Manual) Cancelled 07/03/24 01:15 Prolymphocyte # Cancelled 07/03/24 01:15 Reactive Lymphs # Cancelled 07/03/24 01:15 Total Abs Lymphocytes Cancelled 07/03/24 01:15 Monocytes # (Manual) Cancelled 07/03/24 01:15 Eosinophils # (Manual) Cancelled 07/03/24 01:15 Basophils # (Manual) Cancelled 07/03/24 01:15 Metamyelocytes # (Man) Cancelled 07/03/24 01:15 Myelocytes # (Manual) Cancelled 07/03/24 01:15 Promyelocytes # (Man) Cancelled 07/03/24 01:15 Blast Cells # (Man) Cancelled 07/03/24 01:15 Plasma Cell # (Manual) Cancelled 07/03/24 01:15 Other Cells # Cancelled 07/03/24 01:15 Nucleated RBCs # (Man) Cancelled 07/03/24 01:15 Hypersegmented Neuts Cancelled 07/03/24 01:15 Hyposegmented Neuts Cancelled 07/03/24 01:15 Hypogranular Neuts Cancelled 07/03/24 01:15 Large Granular Lymphs Cancelled 07/03/24 01:15 # Lrg Granular Lymphs Cancelled 07/03/24 01:15 Hairy Cells Cancelled 07/03/24 01:15 Smudge Cells Cancelled 07/03/24 01:15 Toxic Granulation Cancelled 07/03/24 01:15 Toxic Vacuolation Cancelled 07/03/24 01:15 Dohle Bodies Cancelled 07/03/24 01:15 Mora Rods Cancelled 07/03/24 01:15 Platelet Estimate Cancelled 07/03/24 01:15 Hypogranular Platelets Cancelled 07/03/24 01:15 Giant Platelets Cancelled 07/03/24 01:15 Platelet Satelliting Cancelled 07/03/24 01:15 RBC Morphology Cancelled 07/03/24 01:15 Polychromasia Cancelled 07/03/24 01:15 Hypochromasia Cancelled 07/03/24 01:15 Poikilocytosis Cancelled 07/03/24 01:15 Basophilic Stippling Cancelled 07/03/24 01:15 Anisocytosis Cancelled 07/03/24 01:15 Microcytosis Cancelled 07/03/24 01:15 Macrocytosis Cancelled 07/03/24 01:15 Spherocytes Cancelled 07/03/24 01:15 Pappenheimer Bodies Cancelled 07/03/24 01:15 Sickle Cells Cancelled 07/03/24 01:15 Target Cells Cancelled 07/03/24 01:15 Tear Drop Cells Cancelled 07/03/24 01:15 Ovalocytes Cancelled 07/03/24 01:15 Stomatocytes Cancelled 07/03/24 01:15 [place] Bodies Cancelled 07/03/24 01:15 Echinocytes Cancelled 07/03/24 01:15 Acanthocytes (Spur) Cancelled 07/03/24 01:15 Rouleaux Cancelled 07/03/24 01:15 RBC Agglutinates Cancelled 07/03/24 01:15 Schistocytes Cancelled 07/03/24 01:15 Sezary Cell Cancelled 07/03/24 01:15 PT 10.9 Seconds (9.0-12.0) 07/03/24 01:15 INR 1.0 (0.9-1.1) 07/03/24 01:15 Sodium 138 mmol/L (136-145) 07/03/24 01:15 Potassium 4.8 mmol/L (3.5-5.1) 07/03/24 01:15 Chloride 100 mmol/L (98-107) 07/03/24 01:15 Carbon Dioxide 29 mmol/L (21-32) 07/03/24 01:15 Anion Gap 9 (3-11) 07/03/24 01:15 BUN 29 mg/dl (6-23) H 07/03/24 01:15 Creatinine 1.04 mg/dl (0.6-1.4) 07/03/24 01:15 Est Cr Clr Drug Dosing 54.9 ml/min 07/03/24 01:15 eGFR 69.49 07/03/24 01:15 BUN/Creatinine Ratio 27.9 (10-20) H 07/03/24 01:15 Glucose 190 mg/dl (70-99(Fasting)) H 07/03/24 01:15 Calcium 9.4 mg/dl (8.6-10.3) 07/03/24 01:15 Total Bilirubin 0.3 mg/dl (0.2-1.0) 07/03/24 01:15 AST 18 U/L (13-39) 07/03/24 01:15 ALT 11 U/L (7-52) 07/03/24 01:15 Alkaline Phosphatase 73 U/L (34-104) 07/03/24 01:15 Total Creatine Kinase 43 U/L (30-223) 07/03/24 01:15 Total Protein 7.1 gm/dl (6.0-8.3) 07/03/24 01:15 Albumin 3.9 gm/dl (3.4-5.0) 07/03/24 01:15 Globulin 3.2 gm/dl (2.5-4.0) 07/03/24 01:15 Albumin/Globulin Ratio 1.2 (0.9-2) 07/03/24 01:15 Urine Color Yellow 07/03/24 02:50 Urine Appearance Clear (Clear) 07/03/24 02:50 Urine pH 5.5 (4.5-7.5) 07/03/24 02:50 Ur Specific [place] 1.027 (1.000-1.030) 07/03/24 02:50 Urine Protein Negative (Negative) 07/03/24 02:50 Urine Glucose (UA) 3+ (Negative) H 07/03/24 02:50 Urine Ketones Trace (Negative) H 07/03/24 02:50 Urine Blood Negative (Negative) 07/03/24 02:50 Urine Nitrite Positive (Negative) A 07/03/24 02:50 Urine Bilirubin Negative (Negative) 07/03/24 02:50 Urine Urobilinogen Negative (Negative) 07/03/24 02:50 Ur Leukocyte Esterase 1+ (Negative) H 07/03/24 02:50 Urine WBC (Auto) 21-50 /hpf (0-5) H 07/03/24 02:50 Urine RBC (Auto) 0-2 /hpf (0-2) 07/03/24 02:50 U Hyaline Cast (Auto) 0-2 /lpf (0-2) 07/03/24 02:50 U Epithel Cells (Auto) 0-2 /hpf (0-2) 07/03/24 02:50 Urine Bacteria (Auto) 4+ (None Seen) H 07/03/24 02:50 Blood Parasites ID Cancelled 07/03/24 01:[address] 07/03/24 01:58 Exam(s): CT LEFT KNEE Without Contrast EXAM: CT Left Lower Extremity Without Intravenous Contrast, Knee CLINICAL HISTORY: Reason for exam: pain fall. TECHNIQUE: Axial computed tomography images of the left knee without intravenous contrast. CTDI is 24.91 mGy and DLP is 546.58 mGy-cm. Automated exposure control was utilized for the study. A dose lowering technique was utilized adhering to the principles of ALARA. COMPARISON: No relevant prior studies available. FINDINGS: Bones/joints: No acute fracture. No dislocation. There are mild hypertrophic degenerative changes. There is osteopenia. Soft tissues: No joint effusion is noted. Vascular calcifications are seen. IMPRESSION: Hypertrophic degenerative changes with osteopenia. If further evaluation is clinically necessary, consider correlation with MRI. Electronically signed by: Hemanth Byrd MD 07/03/24 02:50 AM ECG Additional Comments: ECG. Sinus bradycardia with first-degree AV block with rate of 58. Left axis deviation. QTc 416 Code Status & VTE Plan VTE Prophylaxis Plan VTE Prophylaxis will be ordered: Yes
--- NOTE | 2024-07-03 06:54 | XRay Report ---
XR chest 1V portable HISTORY: 89 years-old Male weakness COMPARISON: 12/27/2023 TECHNIQUE: AP view of the chest FINDINGS: Cardiac silhouette is enlarged. No pneumothorax, pleural effusion or pulmonary edema. Mild linear lef t basilar atelectasis versus scarring. Surgical clips project over the right axilla. Bones appear vikash ssly intact. IMPRESSION: No acute process. ACT 112: Negative or not required by law. The above report was generated using voice recognition software. It may contain grammatical, syntax o r spelling errors. Electronically signed by: Lucien Larkin M.D. 07/03/2024 6:53 AM
--- NOTE | 2024-07-03 06:57 | XRay Report ---
XR pelvis 1-2V routine HISTORY: 89 years-old Male pain fall acute pelvic pain status post fall COMPARISON: 04/06/2024 AP view of the chest TECHNIQUE: AP view of the pelvis FINDINGS: Arterial calcifications. Surgical clips of the pelvis with penis pump. Left hip arthroplasty without evidence of hardware complication. Healed chronic right proximal femoral fracture deformity with part ially imaged on of hardware. No acute fracture, dislocation or evidence of acute hardware complicatio n. IMPRESSION: No acute fracture or dislocation. ACT 112: Negative or not required by law. The above report was generated using voice recognition software. It may contain grammatical, syntax o r spelling errors. Electronically signed by: Lucien Larkin M.D. 07/03/2024 6:56 AM
--- NOTE | 2024-07-03 06:58 | XRay Report ---
XR knee LT 3V CLINICAL HISTORY: Left knee pain following fall. COMPARISON: None FINDINGS: Alignment of the left knee is anatomic. Osteopenia is noted. There are no fractures. There is no joint effusion. There are no osseous lesions. Extensive vascular calcification is incidentally noted. Patellar spurring is present. There is mild degenerative changes within the left knee. IMPRESSION: 1. No fractures within the left knee. No left knee joint effusion. 2. Osteopenia. ACT 112: Negative or not required by law. Electronically signed by: Melvin Prakash M.D. 07/03/2024 6:56 AM
[2024-07-03] MEDS ORDERED: CARBOHYDRATES FOR HYPOGLYCEMIA PO PRN (09:08)
[2024-07-03] MEDS ORDERED: DEXTROSE 50% 50 ML SYRINGE IV PRN (09:08)
[2024-07-03] MEDS ORDERED: POLYETHYLENE (MIRALAX) 17 GM PACK PO PRN (09:08)
[2024-07-03] MEDS ORDERED: GLUCOSE 40% GEL 15 GM TUBE PO PRN (09:08)
[2024-07-03] MEDS ORDERED: GLUCOSE 10 TAB/TUBE PO PRN (09:08)
[2024-07-03] MEDS ORDERED: GLUCAGON FOR INJ 1 MG VIAL SQ PRN (09:08)
[2024-07-03] MEDS: SODIUM CHLORIDE 0.9% 1,000 ML IV SCH (09:30)
[2024-07-03] MEDS: ENALAPRIL MALEATE 10 MG TAB PO SCH (10:12)
[2024-07-03] MEDS: FAMOTIDINE 20 MG TAB PO SCH (10:12)
[2024-07-03] MEDS: MAGNESIUM OXIDE 400 MG TAB PO SCH (10:13)
[2024-07-03] MEDS: ATORVASTATIN 40 MG TAB PO SCH (10:13)
[2024-07-03] MEDS: CALCIUM 600MG + VIT D 400 IU TAB PO SCH (10:13)
[2024-07-03] MEDS: hydroCHLOROthiazide 25 MG TAB PO SCH (10:13)
[2024-07-03] MEDS: CHOLECALCIFEROL 25 MCG (1000 UNITS) TAB PO SCH (10:13)
[2024-07-03] MEDS: ASPIRIN 81 MG ECTAB PO SCH (10:14)
[2024-07-03] MEDS: ASCORBIC ACID 500 MG TAB PO SCH (10:14)
[2024-07-03] MEDS: HEPARIN SOD 5,000 UNIT/0.5 ML VIAL SQ SCH (10:20)
[2024-07-03] MEDS: INSULIN ASPART PER UNIT CHARGE SC SCH (12:09)
[2024-07-03] MEDS: LANTUS PER UNIT CHARGE SQ SCH (12:11)
--- NOTE | 2024-07-03 12:49 | Electrocardiogram Report ---
Test Reason : Blood Pressure : */* mmHG Vent. Rate : 58 BPM Atrial Rate : 58 BPM P-R Int : 212 ms QRS Dur : 98 ms QT Int : 424 ms P-R-T Axes : 22 -31 29 degrees QTcB Int : 416 ms Sinus bradycardia with 1st degree A-V block Left axis deviation Low voltage QRS Incomplete right bundle branch block Poor R wave progression, consider anterior VA vs. lead placeme nt vs. LVH Abnormal ECG When compared with ECG of 02-Aug-2022 00:33, T wave inversion no longer evident in Anterior leads QT has shortened Confirmed by Nixon Duong ([id number]) on 07/03/2024 12:49:11 PM Referred By: REFERRED SELF Confirmed By: Nixon Duong
--- NOTE | 2024-07-03 15:39 | Communication Note ---
Date of Service: July 03, 2024 This is an 89-year-old male who has significant past medical history of ESBL Proteus UTI who presents to ED after sustaining a fall. He was found to have a suspected UTI. He was started on empiric IV ertapenem. Initial urine culture growing gram negative bacilli. Admitting labs/meds reviewed/imaging. Pt reports LLE pain from fall. He is able to move his leg, but states its painful. He denies f/c/s, chest pain, sob, n/v/d. He reports decent appetite. Exam: VSS Gen: Elderly, M, NAD, A and O x3 with sunglasses on Lung: CTAB Heart: RRR Abd: SNTND +BS Ext: LLE Venous stasis changes, chronic, no edema A/P: Continue IV antibiotics, PT/OT, await culture, if pt with persistent LLE pain consider MRI This note does not reflect a billable service. Alex Ocasio PA-C
[2024-07-03] MEDS: LATANOPROST 0.005% OP SOLN 2.5 ML BTL OPB SCH (22:19)
[2024-07-04] MEDS: ERTAPENEM 1000MG 1,000 MG/10 ML SYR IV SCH (05:44)
[2024-07-04 06:07] LABS: Basophils # (auto) 0.03 K/uL (0.00-0.20); Basophils % (auto) 0.5 %; Eosinophils # (auto) 0.17 K/uL (0.00-0.50); Eosinophils % (auto) 2.7 %; Hemoglobin 11.9 g/dl (14.0-18.0); Immature Granulocytes # (auto) 0.01 K/uL (0.01-0.20); Immature Granulocytes % (auto) 0.2 %; Lymphocytes # (auto) 1.57 K/uL (1.20-3.40); Lymphocytes % (auto) 25.1 %; Mean Corpuscular Hemoglobin 30.1 pg (25.0-34.0); Mean Corpuscular Hgb Conc 32.2 g/dL (32.0-36.0); Mean Corpuscular Volume 93.4 fL (80.0-100.0); Mean Platelet Volume 9.6 fL (9.4-12.4); Monocytes # (auto) 0.66 K/uL (0.11-0.59); Monocytes % (auto) 10.5 %; Neutrophils # (auto) 3.82 K/uL (1.40-6.50); Platelet Count 242 K/uL (130-400); RDW Coefficient of Variation 13.2 % (11.5-14.5); RDW Standard Deviation 45.2 fL (36.4-46.3); Red Blood Count 3.96 M/uL (4.70-6.10); White Blood Count 6.26 K/ul (4.8-10.8)
[2024-07-04 06:16] LABS: BUN Creatinine Ratio 22.6 (10-20); Calcium 8.9 mg/dl (8.6-10.3); Creatinine Clr Calc Pharmacy 54.1 ml/min; Magnesium 1.9 mg/dl (1.7-2.4); Potassium 4.2 mmol/L (3.5-5.1)
[2024-07-04 08:14] LABS: Estimated Average Glucose 186 mg/dl; Hemoglobin A1C 8.1 % (4.5-5.6)
[2024-07-04] MEDS: ACETAMINOPHEN 325 MG TAB PO PRN (09:12)
[2024-07-04] MEDS: VITAMIN B COMPLEX TAB PO SCH (09:13)
[2024-07-04 11:10] VITALS: TEMP 97.5
--- NOTE | 2024-07-04 14:11 | Hospitalist Progress Note ---
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 Patient states ambulates with a walker. He was in the bathroom and when he was trying to reach toilet paper he fell on his knees. Patient says he was able to get up and go to the living room and sit down. When he fell his medically alert went off and his said okay for EMS to come. Per patient initially was able to walk but later he was not able to get up and walk and EMS brought him to the hospital. Patient denies any headache. Says he did not hit his head. No runny nose or sore throat or cough. No fevers. His appetite is okay. Denies any chest pain or shortness of breath. Denies nausea. Denies abdominal pain. Normal bowel and bladder movements. Says he has some pain in the left knee but able to move it okay. In January 2024 patient had a fall and had nondisplaced periprosthetic fracture through the greater trochanter of the left proximal femur and evaluated by Ortho and nonsurgical treatment recommended and patient was discharged to [facility] at that time Fall Fell on the knees CT scan okay Follow reports of pelvic x-ray and the x-ray Pain control PT/OT recommends home health PT Acute UTI Possible contributing to his fall History of ESBL Urine culture > 100k e.coli, will de escalate to IV rocephin Diabetes Hold home p.o. medications Lantus 5 units daily and sliding scale Close monitor. A1C 8.1 Hypertension Continue hydrochlorothiazide, captopril Will monitor Hyperlipidemia On statin History of bradycardia First-degree AV block Incomplete right bundle branch block To refrain from AV elian blocking agents per cardiology Mild cognitive impairment Monitor for delirium Legally blind DVT prophylaxis Heparin subcu Disposition Medical floor Discussed with CM who recommends home health PT, services to start likely thurs/fri Full code. Admission and Anticipated Discharge Date Admission Date: July 03, 2024 Subjective NAEO. He has been ambulating to the BR and back. He continues to have pain to RLE when walking, but is not limiting him. He lives at home with his . He denies f/c/s, chest pain, sob, n/v/d. He is tolerating diet. Review of Systems Review of Systems: All systems reviewed & are unremarkable except as noted in HPI & below Physical Exam Physical Exam: Gen: WD/WN, elderly, M, wearing sunglasses, legally blind, NAD, A&O x3 HEENT: Normocephalic, atraumatic, conjunctivae moist, sclerae anicteric, mucous membranes moist. Lung: Clear to Auscultation bilaterally, no wheezes/rales/rhonchi Heart: Regular rate, regular rhythm, no murmurs, rubs, or gallops Abdomen: Soft, NT, ND +BS x 4 Extremities: No edema, b/l venous stasis changes Skin: Warm, no rash, negative turgor. Results & Data Results & Data Vital Signs (Past 12 Hours) Vital Signs Temp Pulse Resp BP Pulse Ox O2 Del Method 07/04/24 11:09 36.4 C L 73 16 124/69 96 Room Air 07/04/24 07:49 36.5 C 63 18 160/67 H 95 Room Air Laboratory Results Short CBC 07/04/24 Range/Units 05:21 WBC 6.26 (4.8-10.8) K/ul Hgb 11.9 L (14.0-18.0) g/dl Hct 37.0 L (42.0-52.0) % Plt Count 242 (130-400) K/uL BMP 07/04/24 05:21 Sodium 141 Potassium 4.2 Chloride 106 Carbon Dioxide 27 BUN 21 Creatinine 0.93 Glucose 153 H Calcium 8.9 Medications Administered Current Inpatient Medications Acetaminophen (Acetaminophen 325 Mg Tab) 650 mg PO Q4H PRN PRN Reason: pain/fever Stop: 08/02/24 09:07 Last Admin: 07/04/24 09:12 Dose: 650 mg Ascorbic Acid (Ascorbic Acid 500 Mg Tab) 500 mg PO DAILY [facility] Stop: 08/02/24 09:07 Last Admin: 07/04/24 09:13 Dose: 500 mg Aspirin (Aspirin 81 Mg Ectab) 81 mg PO DAILY [facility] Stop: 08/02/24 09:07 Last Admin: 07/04/24 09:14 Dose: 81 mg Atorvastatin Calcium (Atorvastatin 40 Mg Tab) 40 mg PO DAILY [facility] Stop: 08/02/24 09:07 Last Admin: 07/04/24 09:13 Dose: 40 mg Calcium/Vitamin D (Calcium 600mg + Vit D 400 Iu Tab) 1 tab PO DAILY [facility] Stop: 08/02/24 09:07 Last Admin: 07/04/24 09:14 Dose: 1 tab Dextrose (Dextrose 50% 50 Ml Syringe) 25 - 50 ml IV UD PRN; Protocol PRN Reason: Hypoglycemia Protocol Stop: 08/02/24 09:07 Enalapril Maleate (Enalapril Maleate 10 Mg Tab) 20 mg PO BID [facility] Stop: 08/02/24 09:29 Last Admin: 07/04/24 09:14 Dose: 20 mg Famotidine (Famotidine 20 Mg Tab) 20 mg PO BID [facility] Stop: 08/02/24 09:07 Last Admin: 07/04/24 09:14 Dose: 20 mg Glucagon (Glucagon For Inj 1 Mg Vial) 1 mg SQ UD PRN; Protocol PRN Reason: Hypoglycemia Protocol Stop: 08/02/24 09:07 Glucose (Glucose 40% Gel 15 Gm Tube) 15 - 30 gm PO UD PRN; Protocol PRN Reason: Hypoglycemia Protocol Stop: 08/02/24 09:07 Glucose (Glucose 10 Tab/Tube) 4 - 8 tab PO UD PRN; Protocol PRN Reason: Hypoglycemia Protocol Stop: 08/02/24 09:07 Heparin Sodium (Porcine) (Heparin Sod 5,000 Unit/0.5 Ml Vial) 5,000 units SQ Q12 [facility] Stop: 08/02/24 09:07 Last Admin: 07/04/24 09:10 Dose: 5,000 units Hydrochlorothiazide (Hydrochlorothiazide 25 Mg Tab) 12.5 mg PO DAILY [facility] Stop: 08/02/24 09:07 Last Admin: 07/04/24 09:13 Dose: 12.5 mg Ceftriaxone Sodium (Rocephin) 2,000 mg in 50 mls @ 100 mls/hr IV Q24H [facility] Stop: 07/15/24 06:59 Insulin Aspart (Insulin Aspart Per Unit Charge) 0 units SC ACHS [facility] Stop: 08/02/24 09:07 Last Admin: 07/04/24 12:34 Dose: 5 units Insulin Glargine (Lantus Per Unit Charge) 5 units SQ DAILY [facility] Stop: 08/02/24 09:07 Last Admin: 07/04/24 09:09 Dose: 5 units Latanoprost (Latanoprost 0.005% Op Soln 2.5 Ml Btl) 1 drops OPB HS [facility] Stop: 08/02/24 20:59 Last Admin: 07/03/24 22:19 Dose: 1 drops Magnesium Oxide (Magnesium Oxide 400 Mg Tab) 400 mg PO DAILY [facility] Stop: 08/02/24 09:07 Last Admin: 07/04/24 09:13 Dose: 400 mg Miscellaneous (Netarsudil [Rhopressa] 0.02 % Drops: Order Awaiting Action) 1 each N/A QS [facility] Stop: 08/02/24 15:59 Last Admin: 07/04/24 09:08 Dose: Not Given Miscellaneous (Carbohydrates For Hypoglycemia ) 15 - 30 gm PO UD PRN PRN Reason: Hypoglycemia Protocol Stop: 08/02/24 09:07 Polyethylene Glycol (Polyethylene (Miralax) 17 Gm Pack) 17 gm PO DAILY PRN PRN Reason: Constipation Stop: 08/02/24 09:07 Vitamin B Complex (Vitamin B Complex Tab) 1 tab PO DAILY [facility] Stop: 08/03/24 08:59 Last Admin: 07/04/24 09:13 Dose: 1 tab Vitamin D (Cholecalciferol 25 Mcg (1000 Units) Tab) 25 mcg PO DAILY [facility] Stop: 08/02/24 09:07 Last Admin: 07/04/24 09:13 Dose: 25 mcg
[2024-07-04 14:37] VITALS: BP 105/59; PULSE 70; RESP 18; O2SAT 97
--- NOTE | 2024-07-04 15:04 | Discharge Summary ---
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 Patient states ambulates with a walker. He was in the bathroom and when he was trying to reach toilet paper he fell on his knees. Patient says he was able to get up and go to the living room and sit down. When he fell his medically alert went off and his said okay for EMS to come. Per patient initially was able to walk but later he was not able to get up and walk and EMS brought him to the hospital. Patient denies any headache. Says he did not hit his head. No runny nose or sore throat or cough. No fevers. His appetite is okay. Denies any chest pain or shortness of breath. Denies nausea. Denies abdominal pain. Normal bowel and bladder movements. Says he has some pain in the left knee but able to move it okay. In January 2024 patient had a fall and had nondisplaced periprosthetic fracture through the greater trochanter of the left proximal femur and evaluated by Ortho and nonsurgical treatment recommended and patient was discharged to [facility] at that time Fall Fell on the knees CT scan okay Pelvis and Knee Xr okay Pain control PT/OT recommends home health PT Discussed with son and at beside. Pt appears to be back to his baseline Acute UTI Possible contributing to his fall History of ESBL Urine culture > 100k e.coli, will de escalate to oral cefuroxime at discharge Diabetes Hold home p.o. medications Lantus 5 units daily and sliding scale Close monitor. A1C 8.1 Hypertension Continue hydrochlorothiazide, captopril Will monitor Hyperlipidemia On statin History of bradycardia First-degree AV block Incomplete right bundle branch block To refrain from AV elian blocking agents per cardiology Mild cognitive impairment Monitor for delirium Legally blind DVT prophylaxis Heparin subcu Disposition Medical floor Discussed with CM who recommends home health PT, services to start likely thurs/fri Will discharge to home today with family Notes For Next Care Provider Discussion with son and prior to discharge about concern for patient to maintain independent living. Family discussing possibility of escalating care to SNF Medication Changes From Visit Cefuroxime for UTI, chronic medications remained the same. 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 Patient states ambulates with a walker. He was in the bathroom and when he was trying to reach toilet paper he fell on his knees. Patient says he was able to get up and go to the living room and sit down. When he fell his medically alert went off and his said okay for EMS to come. Per patient initially was able to walk but later he was not able to get up and walk and EMS brought him to the hospital. Patient denies any headache. Says he did not hit his head. No runny nose or sore throat or cough. No fevers. His appetite is okay. Denies any chest pain or shortness of breath. Denies nausea. Denies abdominal pain. Normal bowel and bladder movements. Says he has some pain in the left knee but able to move it okay. In January 2024 patient had a fall and had nondisplaced periprosthetic fracture through the greater trochanter of the left proximal femur and evaluated by Ortho and nonsurgical treatment recommended and patient was discharged to [facility] at that time Past medical history as mentioned above. Past surgical history. Appendectomy. Removal of inflatable urethral bladder neck. Left total hip replacement. Social history. . No smoking. No alcohol use. No drug use. Family history no family history on file. Admission Exam Per Admitting Provider General- Not in distress Head- atraumatic Eyes- PERRL. ENT- oropharynx clear Neck- supple, no JVD. Lungs- clear to auscultation no wheezing or crackles Heart- regular rate and rhythm; no murmur, no gallop. Abdomen- normal bowel sounds, soft, nontender, no distension. Extremities- no pretibial edema, no erythema seen. Able to move his lower extremities Neuro- alert, oriented PERRL, no facial palsy; no dysarthria; moves extremities Discharge Exam Gen: WD/WN, NAD, A&O x3 HEENT: Normocephalic, atraumatic, conjunctivae moist, sclerae anicteric, mucous membranes moist. Lung: Clear to Auscultation bilaterally, no wheezes/rales/rhonchi Heart: Regular rate, regular rhythm, no murmurs, rubs, or gallops Abdomen: Soft, NT, ND +BS x 4 Extremities: No edema, LLE venous stasis changes that are chronic Skin: Warm, no rash, negative turgor. Updated Medication List Medication Instructions Recorded Confirmed Type ascorbic acid (vitamin C) 500 mg 500 mg PO DAILY 07/03/24 07/03/24 History tablet aspirin 81 mg tablet,delayed 81 mg PO DAILY 07/03/24 07/03/24 History release atorvastatin 40 mg tablet 40 mg PO DAILY 07/03/24 07/03/24 History calcium 600 mg (as 1 tab PO DAILY 07/03/24 07/03/24 History carbonate)-vitamin D3 10 mcg (400 unit) tablet captopril 50 mg tablet 50 mg PO BID 07/03/24 07/03/24 History cholecalciferol (vitamin D3) 25 25 mcg PO DAILY 07/03/24 07/03/24 History mcg (1,000 unit) tablet (Vitamin D3) empagliflozin 10 mg tablet 10 mg PO DAILY 07/03/24 07/03/24 History (Jardiance) famotidine 20 mg tablet 20 mg PO BID 07/03/24 07/03/24 History hydrochlorothiazide 25 mg tablet 12.5 mg PO DAILY 07/03/24 07/03/24 History latanoprost 0.005 % eye drops 1 drp OPB HS 07/03/24 07/03/24 History linagliptin 5 mg tablet (Tradjenta) 5 mg PO DAILY 07/03/24 07/03/24 History magnesium oxide 400 mg (241.3 mg 400 mg PO DAILY 07/03/24 07/03/24 History magnesium) tablet metformin 1,000 mg tablet 1,000 mg PO BID 07/03/24 07/03/24 History netarsudil 0.02 % eye drops 1 drp OPB HS 07/03/24 07/03/24 History (Rhopressa) omega [id number]-[id number]-fish oil 1,000 mg 1 cap PO DAILY 07/03/24 07/03/24 History (120 mg-180 mg) capsule (Fish Oil) vitamin B complex-folic acid 0.4 1 tab PO DAILY 07/03/24 07/03/24 History mg tablet (B Complex 1 (with folic acid)) cefuroxime axetil 500 mg tablet 500 mg PO BID 5 days #10 tabs 07/04/24 Rx Hospital Stay Data Consultations 07/03/24 03:55 ED Decision to Admit Stat Diagnostic Imagining Performed Knee X-Ray 07/03/24 01:12 XR knee LT 3V CLINICAL HISTORY: Left knee pain following fall. COMPARISON: None FINDINGS: Alignment of the left knee is anatomic. Osteopenia is noted. There are no fractures. There is no joint effusion. There are no osseous lesions. Extensive vascular calcification is incidentally noted. Patellar spurring is present. There is mild degenerative changes within the left knee. IMPRESSION: 1. No fractures within the left knee. No left knee joint effusion. 2. Osteopenia. ACT 112: Negative or not required by law. Electronically signed by: Melvin Prakash M.D. 07/03/2024 6:56 AM Pelvis X-Ray 07/03/24 01:12 XR pelvis 1-2V routine HISTORY: 89 years-old Male pain fall acute pelvic pain status post fall COMPARISON: 04/06/2024 AP view of the chest TECHNIQUE: AP view of the pelvis FINDINGS: Arterial calcifications. Surgical clips of the pelvis with penis pump. Left hip arthroplasty without evidence of hardware complication. Healed chronic right proximal femoral fracture deformity with partially imaged on of hardware. No acute fracture, dislocation or evidence of acute hardware complication. IMPRESSION: No acute fracture or dislocation. ACT 112: Negative or not required by law. The above report was generated using voice recognition software. It may contain grammatical, syntax or spelling errors. Electronically signed by: Lucien Larkin M.D. 07/03/2024 6:56 AM Chest X-Ray 07/03/24 01:13 XR chest 1V portable HISTORY: 89 years-old Male weakness COMPARISON: 12/27/2023 TECHNIQUE: AP view of the chest FINDINGS: Cardiac silhouette is enlarged. No pneumothorax, pleural effusion or pulmonary edema. Mild linear left basilar atelectasis versus scarring. Surgical clips project over the right axilla. Bones appear grossly intact. IMPRESSION: No acute process. ACT 112: Negative or not required by law. The above report was generated using voice recognition software. It may contain grammatical, syntax or spelling errors. Electronically signed by: Lucien Larkin M.D. 07/03/2024 6:[address] 07/03/24 01:58 Exam(s): CT LEFT KNEE Without Contrast EXAM: CT Left Lower Extremity Without Intravenous Contrast, Knee CLINICAL HISTORY: Reason for exam: pain fall. TECHNIQUE: Axial computed tomography images of the left knee without intravenous contrast. CTDI is 24.91 mGy and DLP is 546.58 mGy-cm. Automated exposure control was utilized for the study. A dose lowering technique was utilized adhering to the principles of ALARA. COMPARISON: No relevant prior studies available. FINDINGS: Bones/joints: No acute fracture. No dislocation. There are mild hypertrophic degenerative changes. There is osteopenia. Soft tissues: No joint effusion is noted. Vascular calcifications are seen. IMPRESSION: Hypertrophic degenerative changes with osteopenia. If further evaluation is clinically necessary, consider correlation with MRI. Electronically signed by: Hemanth Byrd MD 07/03/24 02:50 AM Pending Results Patient Have Any Pending Studies at Discharge: No Discharge Instructions Given to Patient (Per Discharging Provider) MEDICATION CHANGES: Cefuroxime 500mg by mouth twice daily for additional 5 days. Next dose is due 07/05/24. Recommend to take a daily probiotic while on antibiotics. This could be in the form of a daily yogurt that contains live cultures or purchasing an over the counter probiotic. SUMMARY OF TEST RESULTS: You were admitted to hospital due to a fall. You were found to have a urinary tract infection and you were treated with antibiotics. You did not have any injury from your fall. PENDING TEST RESULTS: None RECOMMENDATIONS FOR FOLLOW-UP: Continue antibiotics and complete in its entirety. Please continue all other medications. Please continue your physical therapy services. OTHER INSTRUCTIONS: Seek medical attention if you have: * temperature above 101 * chest pain or trouble breathing * abdominal pain, nausea, vomiting * diarrhea, dark stools or bloody stools * any unanswered questions or concerns Call 911 if symptoms are severe. Please take good care of yourself. It has been a pleasure taking care of you. Please take care of yourself. If you have any questions regarding your recent hospitalization please contact [facility] and request Annita Briones @ [phone]. Adwoa Ocasio PA-C Total Time Total Time Spent Total Time Spent (In Minutes): 35 minutes Supervising Physician Co-Signing Physician Notes Patient seen and examined at bedside. He is sitting up on the chair comfortable; not in distress He wants to go home. Denies fever, chills, chest pain or shortness of breath Discharged on oral antibiotics I have reviewed the advanced practitioner's documentation, and I agree with, and take responsibility for the plan of care I spent a total of 20 minutes coordinating, documenting, and providing care for this patient excluding time spent in the performance of separately billed services. All of the aforementioned completed while collaborating with the assigned advanced practitioner for a full treatment plan
[2024-07-05] MEDS ORDERED: cefTRIAXone SODIUM 2,000 MG/50 ML BAG IV SCH (07:00)
== END 2024-07-04 15:55 | disposition home health service (06) | DRG 690 ==
LOC: ED 00:53 → 3N 06:09